=== PATIENT | female | born 1950 | race Hispanic/Latino ===

== ENCOUNTER 2016-07-27 10:51 | Emergency (ER) | payer SELFPAY ==
--- NOTE | 2016-07-27 11:57 | Emergency Department Report ---
Chief Complaint: Chest Pain Stated Complaint: ALLI/COUGH/SORE CHEST Time Seen by Provider: 07/27/16 11:53 - HPI History of Present Illness: 65 y/o female complain of cough x 1 week that has cause to have shortness of breath pt complain of nausea .pt state she took tylenol with cold and Pepto- Bismol.pt state that has some relief. - ROS Review of Systems: per HPI - Exam Vital Signs: Vital Signs 07/27/16 11:38 Temperature 98.7 F Pulse Rate 102 H Respiratory 32 H Rate Blood Pressure 145/75 O2 Sat by Pulse 98 Oximetry Physical Exam: GENERAL: The patient is well-developed and well-nourished. Patient is in NAD. HENT: Normocephalic. Atraumatic. Patient has moist mucous membranes. Throat: No erythema, swelling or exudates. EYES: Extraocular motions are intact, PERRL NECK: Supple. No meningitic signs are noted. There is no adenopathy noted. CHEST/LUNGS: Clear to auscultation bilaterally. No wheezing, rales or rhonchi noted. There is no respiratory distress noted. HEART/CARDIOVASCULAR: Regular rate and rhythm. Normal S1 S2. No murmurs, rubs , clicks, or gallops. ABDOMEN: Abdomen is soft, nontender.. Bowel sounds normoactive. There is no abdominal distention. Negative rebound tenderness. : Deferred. SKIN: There is no rash. There is no edema. There is no diaphoresis. NEURO: The patient is A&Ox3. The patient has no focal neurologic deficits. MUSCULOSKELETAL: There is no tenderness or deformity. There is no limitation range of motion. PSYCH: Pt has appropriate mood and affect. MSE screening note: Focused history and physical exam performed. Due to findings the following was ordered: ED Disposition for MSE Condition: Stable
[2016-07-27 12:57] LABS: Basophils % (Auto) 0.7 % (0.0-1.8); Eosinophils % (Auto) 1.7 % (0.0-4.3); Hematocrit 40.9 % (30.3-42.9); Hemoglobin 13.6 gm/dl (10.1-14.3); Mean Corpuscular HGB Conc 33 % (30-34); Mean Corpuscular Hemoglobin 30 pg (28-32); Mean Corpuscular Volume 89 fl (79-97); Platelet Count 236 K/mm3 (140-440); Red Blood Count 4.58 M/mm3 (3.65-5.03); Red Cell Distribution Width 14.3 % (13.2-15.2)
--- NOTE | 2016-07-27 13:06 | XRay Report ---
ROUTINE CHEST, TWO VIEWS: HISTORY: chest pain. The trachea, heart, mediastinal contour, lung hein and bony thorax are unremarkable. IMPRESSION: Unremarkable chest x-ray. No acute change since 10/22/15.
[2016-07-27 13:07] LABS: INR 1.08 (0.87-1.13)
[2016-07-27 13:08] LABS: Partial Thromboplastin Time 27.2 Sec. (24.2-36.6)
[2016-07-27 13:18] LABS: Creatine Kinase MB 1.5 ng/mL (0.0-4.0)
[2016-07-27 13:19] LABS: Anion Gap 19 mmol/L; Blood Urea Nitrogen 12 mg/dL (7-17); Calcium 8.3 mg/dL (8.4-10.2); Carbon Dioxide 20 mmol/L (22-30); Chloride 102.8 mmol/L (98-107); Creatine Kinase 71 units/L (30-135); Glucose 117 mg/dL (65-100); Potassium 3.7 mmol/L (3.6-5.0); Sodium 138 mmol/L (137-145)
[2016-07-27] MEDS ORDERED: TESSALON PERLES PO ONE (22:47)
[2016-07-27] MEDS ORDERED: MUCINEX ER PO ONE (22:47)
[2016-07-27] MEDS ORDERED: NORCO 7.5/325 PO ONE (22:47)
[2016-07-27] MEDS ORDERED: ZOFRAN ODT ONE (22:54)
[2016-07-27] MEDS ORDERED: ZOFRAN ODT PO ONE (23:00)
--- NOTE | 2016-07-28 00:11 | Emergency Department Report ---
HPI - General Chief Complaint: Chest Pain Time Seen by Provider: 07/27/16 22:46 - HPI HPI: The patient is a 65-year-old female who presents for evaluation of cough and chest pain. The patient reports an intermittently productive cough of clear sputum for the past 3 days, moderate in severity, associated with left-sided aching in quality chest pain, exacerbated with coughing, relieved at rest, moderate to severe. She has also experienced nasal and chest congestion and mild transient dyspnea with exertion. The patient denies fever, chills, night sweats, sore throat, hemoptysis, syncope, unilateral leg swelling, recent immobilization. ED Past Medical Hx - Past Medical History Previous Medical History?: Yes Hx Asthma: Yes ("ASTHMA BRONCHITIS") - Surgical History Past Surgical History?: No - Social History Smoking Status: Current Every Day Smoker - Medications Home Medications: Home Medications Medication Instructions Recorded Confirmed Last Taken Type ALBUTEROL Inhaler [ProAir HFA 2 puff IH QID PRN #1 inhalation 07/28/16 Unknown Rx Inhaler] Benzonatate [Tessalon Perles] 100 mg PO Q8HR #14 capsule 07/28/16 Unknown Rx Cyclobenzaprine HCl [Flexeril 5 MG 5 mg PO Q8HR PRN #10 tab 07/28/16 Unknown Rx TAB] guaiFENesin [Mucinex] 600 mg PO Q6HR PRN #20 07/28/16 Unknown Rx ED Review of Systems ROS: Stated complaint: ALLI/COUGH/SORE CHEST Other details as noted in HPI Constitutional: denies: fever ENT: denies: throat or neck pain Respiratory: reports cough, shortness of breath Cardiovascular: reports chest pain Endocrine: denies unexplained weight loss or gain Gastrointestinal: denies: abdominal pain, nausea Genitourinary: denies: dysuria Musculoskeletal: denies: leg swelling Skin: denies: rash Neurological: denies: headache Hematological/Lymphatic: denies: easy bleeding or easy bruising Psych: denies sadness or hopelessness Physical Exam - Physical Exam Vital Signs: Vital Signs 07/27/16 07/27/16 07/27/16 11:38 23:03 23:24 Temperature 98.7 F 99.3 F Pulse Rate 102 H 80 Respiratory 32 H 32 H 25 H Rate Blood Pressure 145/75 Blood Pressure 149/78 [Left] O2 Sat by Pulse 98 96 Oximetry Physical Exam: General: well-nourished, well-developed, no acute distress Head: Normocephalic, atraumatic Eyes: normal sclera ENT: Mucous membranes are pink and moist,, bilateral nasal congestion is present Neck: trachea midline, neck supple, No neck stiffness, no cervical adenopathy Respiratory: Breath sounds equal bilaterally, no wheezing, rales, or rhonchi Cardio: S1 and S2 present, no murmurs, rubs, gallops, capillary refill is brisk Abdomen: Normoactive bowel sounds, soft abdomen, no rigidity, no guarding or rebound tenderness Musc: No pitting edema Skin: No rash Neuro: no facial drooping, normal speech Psych: Normal affect ED Course Vital Signs 07/27/16 07/27/16 07/27/16 11:38 23:03 23:24 Temperature 98.7 F 99.3 F Pulse Rate 102 H 80 Respiratory 32 H 32 H 25 H Rate Blood Pressure 145/75 Blood Pressure 149/78 [Left] O2 Sat by Pulse 98 96 Oximetry ED Medical Decision Making - Lab Data Result diagrams: 07/27/16 12:44 07/27/16 12:44 - Medical Decision Making The patient was seen and examined by myself. The patient is placed on a cardiac cath lab radiology technologist and continuous pulse ox. On initial evaluation, the patient was found to be in no distress. Evaluation orders were placed. EKG was negative for findings suggestive of acute cardiac infarct. The patient is given a Gotham for her pain, Zofran for nausea, Tessalon Perles for their cough and Mucinex for nasal congestion. Lab results were not concerning. Chest x-ray is negative for pulmonary vessel congestion, pleural effusion, focal consolidation, or other acute cardio pulmonary disease process. The patient was reevaluated and reported that their symptoms were markedly improved. On reexamination the patient is found to have normal respiratory rate and O2 sat on pulse oximetry, with no costal retractions or diminishment of breath sounds on auscultation. The patient is stable for discharge with outpatient follow-up. The patient is given follow-up and return instructions. The patient expressed understanding and agreed with the plan. The patient is discharged in stable condition. Critical care attestation.: If time is entered above; I have spent that time in minutes in the direct care of this critically ill patient, excluding procedure time. ED Disposition Clinical Impression: Acute viral syndrome, URI, acute, Myalgia, Acute chest pain Disposition: DISCHARGED TO HOME OR SELFCARE Is pt being admited?: No Does the pt Need Aspirin: No Condition: Stable Instructions: Chest Pain (ED), Viral Syndrome (ED), Musculoskeletal Pain (ED), Costochondritis (ED) Referrals: PRIMARY CARE, [Primary Care Provider] - 3-5 Days Time of Disposition: 23:16
[2016-07-28 00:29] VITALS: BP 128/77
== END 2016-07-28 00:20 | disposition home or self-care (01) ==
LOC: ED 10:51
DX: B34.9 Viral infection, unspecified (principal); J06.9 Acute upper respiratory infection, unspecified; M79.1 Myalgia; R07.9 Chest pain, unspecified; J45.909 Unspecified asthma, uncomplicated; F17.200 Nicotine dependence, unspecified, uncomplicated
CPT/HCPCS: 36415; 71020; 80048; 82550; 82553; 84484; 85025; 85610; 85730; 93005; 93010; 99284; Q0162

== ENCOUNTER 2016-10-25 13:12 | Outpatient (CLI) | payer MEDICARE ==
--- NOTE | 2016-10-25 15:21 | Mammography Report ---
Screening mammogram: There are no available exams for comparison. Small circumscribed nodular densities are present illness of sub-axilla region as seen only in the MLO projection. Benign characteristics. Breast pattern otherwise is generally fatty replaced bilaterally and unremarkable. CAD used. Impression: Benign pattern. Recommendation: Annual mammogram followup. BI-RADS CATEGORY: 2 = Benign ACR BI-RADS MAMMOGRAPHIC CODES: 0 = Needs additional imaging evaluation; 1 = Negative; 2 = Benign; 3 = Probably benign; 4 = Suspicious; 5 = Malignant; 6 = Known biopsy-proven malignancy COMMENT: 1. Dense breast tissue, i.e., adenosis, fibrocystic changes, etc., may obscure an underlying neoplasm. 2. Approximately 10% of cancers are not detected with mammography. 3. A negative mammography report should not delay biopsy if a clinically suspicious mass is present.
== END 2016-10-25 13:13 | disposition home or self-care (01) ==
LOC: SPVWC 13:12
PROVIDERS: ATTEND General Practice
DX: Z12.31 Encounter for screening mammogram for malignant neoplasm of breast (principal)
CPT/HCPCS: 77067; G0202

== ENCOUNTER 2017-02-16 13:23 | Outpatient (CLI) | payer MEDICARE ==
--- NOTE | 2017-02-16 14:07 | Cat Scan Report ---
CT CHEST WITHOUT CONTRAST: HISTORY: Abnormal chest x-ray. TECHNIQUE: Helical CT with sagittal and coronal reformatted images. FINDINGS: Compared to the chest films dated 07/27/16. Heart size is normal. There is no evidence of adenopathy within the mediastinum. Pulmonary mateus are free of any mass and the lungs are clear of infiltrates. The pleura is unremarkable. No masses involve the chest wall. No abnormalities are noted within the upper abdomen. The adrenal glands are normal. IMPRESSION: Unremarkable noncontrast CT chest.
== END 2017-02-16 13:24 | disposition home or self-care (01) ==
LOC: CT 13:23
PROVIDERS: ATTEND Specialist
DX: R93.8 Abnormal findings on diagnostic imaging of other specified body structures (principal); J45.909 Unspecified asthma, uncomplicated; F17.200 Nicotine dependence, unspecified, uncomplicated
CPT/HCPCS: 71250

== ENCOUNTER 2017-10-26 09:51 | Emergency (ER) | payer MEDICARE ==
[2017-10-26 10:39] LABS: Basophils # (Auto) 0.1 K/mm3 (0.0-0.1); Basophils % (Auto) 0.6 % (0.0-1.8); Eosinophils # (Auto) 0.5 K/mm3 (0.0-0.4); Eosinophils % (Auto) 4.8 % (0.0-4.3); Hematocrit 41.4 % (30.3-42.9); Lymphocytes # (Auto) 2.1 K/mm3 (1.2-5.4); Lymphocytes % (Auto) 20.2 % (13.4-35.0); Mean Corpuscular HGB Conc 34 % (30-34); Mean Corpuscular Hemoglobin 31 pg (28-32); Mean Corpuscular Volume 91 fl (79-97); Monocytes # (Auto) 0.8 K/mm3 (0.0-0.8); Monocytes % (Auto) 7.9 % (0.0-7.3); Platelet Count 308 K/mm3 (140-440); Red Blood Count 4.55 M/mm3 (3.65-5.03); Red Cell Distribution Width 13.2 % (13.2-15.2)
[2017-10-26 11:08] LABS: Alanine Aminotransferase 17 units/L (7-56); Albumin 3.7 g/dL (3.9-5); BUN/Creatinine Ratio 36; Blood Urea Nitrogen 18 mg/dL (7-17); Calcium 8.8 mg/dL (8.4-10.2); Hemolysis Index 6; Lipase 9 units/L (13-60)
[2017-10-26 11:27] LABS: Bilirubin,Urine NEG (Negative); Blood,Urine NEG (Negative); Color,Urine Yellow (Yellow); Protein,Urine <15 mg/dL mg/dL (Negative); Urobilinogen,Urine < 2.0 mg/dL (<2.0)
--- NOTE | 2017-10-26 12:47 | Emergency Department Report ---
Blank Doc - Documentation Documentation: Patient is a 66-year-old female who is presenting with constipation for last 4 days. Patient feels that she needs to go to bathroom but is unable to. Patient taken stool softeners and Dulcolax with no relief. Patient began vomiting this morning. Patient denies any fevers chills or significant abdominal pain at this time. Laboratory studies within normal limits there were do via nursing protocol. Patient will undergo x-ray to rule out an obstructive pattern. Patient will be reassessed [facility]
--- NOTE | 2017-10-26 14:30 | XRay Report ---
ABDOMINAL SERIES: History: Nausea and vomiting, constipation, obstruction. Erect chest film shows no acute or significant changes involving the heart or lung hein. There is no evidence of free air beneath the diaphragms. The gas pattern within the abdomen is unremarkable. There is no evidence of bowel dilatation, significant air-fluid levels, or masses. Organ shadows are unremarkable. A curvilinear density is noted in the midline pelvis of uncertain etiology. This is in the expected location of the uterus or rectum. Please correlate with the patient's history. IMPRESSION: No acute abdominal process identified. No evidence of fecal retention.
--- NOTE | 2017-10-26 14:36 | Emergency Department Report ---
ED Abdominal Pain HPI - General Chief Complaint: Abdominal Pain Stated Complaint: SEVERE STOMACH CRAMPS, CONSTIPATION Time Seen by Provider: 10/26/17 12:07 Source: patient Mode of arrival: Ambulatory Limitations: No Limitations - History of Present Illness Initial Comments: 66-year-old female past medical history arthritis, asthma, COPD presents with complaint of 4 days of constipation. Patient states she is still able to pass gas but has passed little to no stool in the last 4 days. Patient states she had slightly crampy pain this morning. Denies dysuria or hematuria difficulty urinating. Denies fever or chills. Denies any abdominal trauma. States she took a stool softener home with minimal relief of her constipation. Patient was seen by Dr. Conway for medical screening MD Complaint: abdominal pain, other (constipation) Onset/Timin -: days(s) Location: suprapubic Radiation: suprapubic - Related Data Previous Rx's Medication Instructions Recorded Last Taken Type ALBUTEROL Inhaler [ProAir HFA 2 puff IH QID PRN #1 inhalation 07/28/16 Unknown Rx Inhaler] Benzonatate [Tessalon Perles] 100 mg PO Q8HR #14 capsule 07/28/16 Unknown Rx Cyclobenzaprine HCl [Flexeril 5 MG 5 mg PO Q8HR PRN #10 tab 07/28/16 Unknown Rx TAB] guaiFENesin [Mucinex] 600 mg PO Q6HR PRN #20 07/28/16 Unknown Rx Fluticasone/Salmeterol [Advair 1 each INHALATION BID 30 Days 03/16/17 Unknown Rx 250-50 Diskus] blst.w.dev Levofloxacin [Levaquin TAB] 500 mg PO QDAY #5 tablet 03/16/17 Unknown Rx metroNIDAZOLE [Flagyl TAB] 500 mg PO Q8HR #14 tablet 03/16/17 Unknown Rx predniSONE [Deltasone] 50 mg PO QDAY #5 tab 03/16/17 Unknown Rx Magnesium Citrate [Citroma] 296 ml PO ONCE PRN #1 solution 10/26/17 Unknown Rx Polyethylene Glycol 3350 [Miralax 17 gm PO QDAY PRN #1 packet 10/26/17 Unknown Rx 3350] Sennosides [Senna] 8.6 mg PO QHS PRN #14 tablet 10/26/17 Unknown Rx Allergies Allergy/AdvReac Type Severity Reaction Status Date / Time erythromycin base Allergy Rash Verified 10/22/15 12:28 [Erythromycin Base] Penicillins Allergy Shortness Verified 10/22/15 12:28 of Breath ED Review of Systems ROS: Stated complaint: SEVERE STOMACH CRAMPS, CONSTIPATION Other details as noted in HPI Constitutional: denies: chills, fever Eyes: denies: eye pain, eye discharge, vision change ENT: denies: ear pain, throat pain Respiratory: denies: cough, shortness of breath, wheezing Cardiovascular: denies: chest pain, palpitations Endocrine: no symptoms reported Gastrointestinal: nausea, constipation. denies: abdominal pain, diarrhea Genitourinary: denies: urgency, dysuria, discharge Musculoskeletal: denies: back pain, joint swelling, arthralgia Skin: denies: rash, lesions Neurological: denies: headache, weakness, paresthesias Psychiatric: denies: anxiety, depression Hematological/Lymphatic: denies: easy bleeding, easy bruising ED Past Medical Hx - Past Medical History Previous Medical History?: Yes Hx Hypertension: No Hx Heart Attack/AMI: No Hx Congestive Heart Failure: No Hx Deep Vein Thrombosis: No Hx Pulmonary Embolism: No Hx Arthritis: Yes Hx Asthma: Yes Hx COPD: Yes Hx Tuberculosis: No - Surgical History Past Surgical History?: Yes Hx Coronary Stent: No Hx Pacemaker: No Hx Internal Defibrillator: No Additional Surgical History: [place] cataract surgery - Social History Smoking Status: Former Smoker Substance Use Type: Alcohol, Prescribed - Medications Home Medications: Home Medications Medication Instructions Recorded Confirmed Last Taken Type ALBUTEROL Inhaler [ProAir HFA 2 puff IH QID PRN #1 inhalation 07/28/16 Unknown Rx Inhaler] Benzonatate [Tessalon Perles] 100 mg PO Q8HR #14 capsule 07/28/16 Unknown Rx Cyclobenzaprine HCl [Flexeril 5 MG 5 mg PO Q8HR PRN #10 tab 07/28/16 Unknown Rx TAB] guaiFENesin [Mucinex] 600 mg PO Q6HR PRN #20 07/28/16 Unknown Rx Fluticasone/Salmeterol [Advair 1 each INHALATION BID 30 Days 03/16/17 Unknown Rx 250-50 Diskus] blst.w.dev Levofloxacin [Levaquin TAB] 500 mg PO QDAY #5 tablet 03/16/17 Unknown Rx metroNIDAZOLE [Flagyl TAB] 500 mg PO Q8HR #14 tablet 03/16/17 Unknown Rx predniSONE [Deltasone] 50 mg PO QDAY #5 tab 03/16/17 Unknown Rx Magnesium Citrate [Citroma] 296 ml PO ONCE PRN #1 solution 10/26/17 Unknown Rx Polyethylene Glycol 3350 [Miralax 17 gm PO QDAY PRN #1 packet 10/26/17 Unknown Rx 3350] Sennosides [Senna] 8.6 mg PO QHS PRN #14 tablet 10/26/17 Unknown Rx ED Physical Exam - General Limitations: No Limitations General appearance: alert, in no apparent distress - Head Head exam: Present: atraumatic, normocephalic - Eye Eye exam: Present: normal appearance, PERRL, EOMI - ENT ENT exam: Present: mucous membranes moist - Neck Neck exam: Present: normal inspection - Respiratory Respiratory exam: Present: normal lung sounds bilaterally. Absent: respiratory distress - Cardiovascular Cardiovascular Exam: Present: regular rate, normal rhythm. Absent: systolic murmur, diastolic murmur, rubs, gallop - GI/Abdominal GI/Abdominal exam: Present: soft (patient has minimal to no tenderness on palpation, some discomfort suprapubic region), normal bowel sounds - Extremities Exam Extremities exam: Present: normal inspection - Back Exam Back exam: Present: normal inspection - Neurological Exam Neurological exam: Present: alert, oriented X3 - Psychiatric Psychiatric exam: Present: normal affect, normal mood - Skin Skin exam: Present: warm, dry, intact, normal color. Absent: rash ED Course Vital Signs 10/26/17 10/26/17 10:10 14:53 Temperature 97.6 F Pulse Rate 59 L 60 Respiratory 18 18 Rate Blood Pressure 162/68 Blood Pressure 152/78 [Left] O2 Sat by Pulse 98 98 Oximetry ED Medical Decision Making - Lab Data Result diagrams: 10/26/17 10:28 10/26/17 10:28 - Medical Decision Making A/P: Constipation 1-senna, MiraLAX, magnesium citrate. I advised patient to stay well-hydrated while taking laxatives. 2-I advised patient to consume a high-fiber diet. I advised patient to return to the ED for any worsening pain fever chills bloody stools nausea and vomiting or inability to pass any stools or gas. Patient stated she understood my instructions. Patient is currently still able to pass gas 3-x-ray shows no obstructive bowel gas pattern. I reviewed x-ray results with Dr. Conway before discharge. Vital signs stable for discharge. Patient is able to tolerate by mouth fluid and food before discharge. 4-follow up with primary care and GI Critical care attestation.: If time is entered above; I have spent that time in minutes in the direct care of this critically ill patient, excluding procedure time. ED Disposition Clinical Impression: Constipation Qualifiers: Constipation type: unspecified constipation type Qualified Code(s): K59.00 - Constipation, unspecified Disposition: TO HOME OR SELFCARE Is pt being admited?: No Does the pt Need Aspirin: No Condition: Stable Instructions: Constipation (ED), High Fiber Diet (ED), Obstipation (ED) Prescriptions: Sennosides [Senna] 8.6 mg PO QHS PRN #14 tablet PRN Reason: Constipation Magnesium Citrate [Citroma] 296 ml PO ONCE PRN #1 solution PRN Reason: Constipation Polyethylene Glycol 3350 [Miralax 3350] 17 gm PO QDAY PRN #1 packet PRN Reason: Constipation Referrals: [facility] [Provider Group] - 3-5 Days [facility] [Provider Group] - 3-5 Days Forms: Accompanied Note, Work/School Release Form(ED) Time of Disposition: 14:47
[2017-10-26 14:54] VITALS: BP 152/78
== END 2017-10-26 14:54 | disposition home or self-care (01) ==
LOC: ED 09:51
DX: K59.00 Constipation, unspecified (principal); J44.9 Chronic obstructive pulmonary disease, unspecified
CPT/HCPCS: 36415; 74022; 80053; 81001; 83690; 85025

== ENCOUNTER 2017-11-28 19:55 | Emergency (ER) | payer MEDICARE ==
[2017-11-28 21:44] VITALS: BP 173/70
--- NOTE | 2017-11-28 22:19 | Emergency Department Report ---
ED ENT HPI - General Chief complaint: Earache Stated complaint: EAR PAIN Time Seen by Provider: 11/28/17 21:53 Source: patient Mode of arrival: Ambulatory Limitations: No Limitations - History of Present Illness Initial comments: This is a 67-year-old female nontoxic, well nourished in appearance, no acute signs of distress presents to the ED with c/o of right earache x1 week. Patient describes pain as aching. Patient denies any decreased hearing or ear canal discharge. Patient denies any mastoid or tragus tenderness. Patient denies any fever, chills, nausea, vomiting, chest pain, shortness of breath, headache or stiff neck. Patient stated allergies to PCN and erythromycin. MD complaint: ear pain -: week(s) (1) Location: R ear Severity: mild Severity scale (0 -10): 8 Quality: aching Consistency: constant Improves with: none Worsens with: none Associated Symptoms: denies: fever, cough, gum swelling, toothache, pain with swallowing, sore throat, tinnitus, hearing loss, discharge from ear, rhinorrhea - Related Data Previous Rx's Medication Instructions Recorded Last Taken Type ALBUTEROL Inhaler [ProAir HFA 2 puff IH QID PRN #1 inhalation 07/28/16 Unknown Rx Inhaler] Benzonatate [Tessalon Perles] 100 mg PO Q8HR #14 capsule 07/28/16 Unknown Rx Cyclobenzaprine HCl [Flexeril 5 MG 5 mg PO Q8HR PRN #10 tab 07/28/16 Unknown Rx TAB] guaiFENesin [Mucinex] 600 mg PO Q6HR PRN #20 07/28/16 Unknown Rx Fluticasone/Salmeterol [Advair 1 each INHALATION BID 30 Days 03/16/17 Unknown Rx 250-50 Diskus] blst.w.dev Levofloxacin [Levaquin TAB] 500 mg PO QDAY #5 tablet 03/16/17 Unknown Rx metroNIDAZOLE [Flagyl TAB] 500 mg PO Q8HR #14 tablet 03/16/17 Unknown Rx predniSONE [Deltasone] 50 mg PO QDAY #5 tab 03/16/17 Unknown Rx Magnesium Citrate [Citroma] 296 ml PO ONCE PRN #1 solution 10/26/17 Unknown Rx Polyethylene Glycol 3350 [Miralax 17 gm PO QDAY PRN #1 packet 10/26/17 Unknown Rx 3350] Sennosides [Senna] 8.6 mg PO QHS PRN #14 tablet 10/26/17 Unknown Rx Clindamycin [Clindamycin CAP] 300 mg PO Q8H 7 Days cap 11/28/17 Unknown Rx Ibuprofen [Motrin] 600 mg PO Q8H PRN #30 tablet 11/28/17 Unknown Rx Allergies Allergy/AdvReac Type Severity Reaction Status Date / Time erythromycin base Allergy Rash Verified 10/22/15 12:28 [Erythromycin Base] Penicillins Allergy Shortness Verified 10/22/15 12:28 of Breath ED Dental HPI - General Chief complaint: Earache Stated complaint: EAR PAIN Time Seen by Provider: 11/28/17 21:53 Source: patient Mode of arrival: Ambulatory Limitations: No Limitations - Related Data Previous Rx's Medication Instructions Recorded Last Taken Type ALBUTEROL Inhaler [ProAir HFA 2 puff IH QID PRN #1 inhalation 07/28/16 Unknown Rx Inhaler] Benzonatate [Tessalon Perles] 100 mg PO Q8HR #14 capsule 07/28/16 Unknown Rx Cyclobenzaprine HCl [Flexeril 5 MG 5 mg PO Q8HR PRN #10 tab 07/28/16 Unknown Rx TAB] guaiFENesin [Mucinex] 600 mg PO Q6HR PRN #20 07/28/16 Unknown Rx Fluticasone/Salmeterol [Advair 1 each INHALATION BID 30 Days 03/16/17 Unknown Rx 250-50 Diskus] blst.w.dev Levofloxacin [Levaquin TAB] 500 mg PO QDAY #5 tablet 03/16/17 Unknown Rx metroNIDAZOLE [Flagyl TAB] 500 mg PO Q8HR #14 tablet 03/16/17 Unknown Rx predniSONE [Deltasone] 50 mg PO QDAY #5 tab 03/16/17 Unknown Rx Magnesium Citrate [Citroma] 296 ml PO ONCE PRN #1 solution 10/26/17 Unknown Rx Polyethylene Glycol 3350 [Miralax 17 gm PO QDAY PRN #1 packet 10/26/17 Unknown Rx 3350] Sennosides [Senna] 8.6 mg PO QHS PRN #14 tablet 10/26/17 Unknown Rx Clindamycin [Clindamycin CAP] 300 mg PO Q8H 7 Days cap 11/28/17 Unknown Rx Ibuprofen [Motrin] 600 mg PO Q8H PRN #30 tablet 11/28/17 Unknown Rx Allergies Allergy/AdvReac Type Severity Reaction Status Date / Time erythromycin base Allergy Rash Verified 10/22/15 12:28 [Erythromycin Base] Penicillins Allergy Shortness Verified 10/22/15 12:28 of Breath ED Review of Systems ROS: Stated complaint: EAR PAIN Other details as noted in HPI Constitutional: denies: chills, fever Eyes: denies: eye pain, eye discharge, vision change ENT: ear pain. denies: throat pain Respiratory: denies: cough, shortness of breath, wheezing Cardiovascular: denies: chest pain, palpitations Endocrine: no symptoms reported Gastrointestinal: denies: abdominal pain, nausea, diarrhea Genitourinary: denies: urgency, dysuria, discharge Musculoskeletal: denies: back pain, joint swelling, arthralgia Skin: denies: rash, lesions Neurological: denies: headache, weakness, paresthesias Psychiatric: denies: anxiety, depression Hematological/Lymphatic: denies: easy bleeding, easy bruising ED Past Medical Hx - Past Medical History Previous Medical History?: Yes Hx Hypertension: No Hx Heart Attack/AMI: No Hx Congestive Heart Failure: No Hx Deep Vein Thrombosis: No Hx Pulmonary Embolism: No Hx Arthritis: Yes Hx Asthma: Yes Hx COPD: Yes Hx Tuberculosis: No - Surgical History Past Surgical History?: Yes Hx Coronary Stent: No Hx Pacemaker: No Hx Internal Defibrillator: No Additional Surgical History: [place] cataract surgery - Social History Smoking Status: Former Smoker Substance Use Type: None - Medications Home Medications: Home Medications Medication Instructions Recorded Confirmed Last Taken Type ALBUTEROL Inhaler [ProAir HFA 2 puff IH QID PRN #1 inhalation 07/28/16 Unknown Rx Inhaler] Benzonatate [Tessalon Perles] 100 mg PO Q8HR #14 capsule 07/28/16 Unknown Rx Cyclobenzaprine HCl [Flexeril 5 MG 5 mg PO Q8HR PRN #10 tab 07/28/16 Unknown Rx TAB] guaiFENesin [Mucinex] 600 mg PO Q6HR PRN #20 07/28/16 Unknown Rx Fluticasone/Salmeterol [Advair 1 each INHALATION BID 30 Days 03/16/17 Unknown Rx 250-50 Diskus] blst.w.dev Levofloxacin [Levaquin TAB] 500 mg PO QDAY #5 tablet 03/16/17 Unknown Rx metroNIDAZOLE [Flagyl TAB] 500 mg PO Q8HR #14 tablet 03/16/17 Unknown Rx predniSONE [Deltasone] 50 mg PO QDAY #5 tab 03/16/17 Unknown Rx Magnesium Citrate [Citroma] 296 ml PO ONCE PRN #1 solution 10/26/17 Unknown Rx Polyethylene Glycol 3350 [Miralax 17 gm PO QDAY PRN #1 packet 10/26/17 Unknown Rx 3350] Sennosides [Senna] 8.6 mg PO QHS PRN #14 tablet 10/26/17 Unknown Rx Clindamycin [Clindamycin CAP] 300 mg PO Q8H 7 Days cap 11/28/17 Unknown Rx Ibuprofen [Motrin] 600 mg PO Q8H PRN #30 tablet 11/28/17 Unknown Rx ED Physical Exam - General Limitations: No Limitations General appearance: alert, in no apparent distress - Head Head exam: Present: atraumatic, normocephalic - Eye Eye exam: Present: normal appearance Pupils: Present: normal accommodation - ENT ENT exam: Present: normal orophraynx, mucous membranes moist, normal external ear exam - Expanded ENT Exam Expanded Ear exam: Present: normal external inspection TM/Canal exam: Erythema: Left TM, Bulging: Left TM Mouth exam: Present: normal external inspection, tongue normal. Absent: drooling, trismus, muffled voice, tongue elevation, laceration Teeth exam: Present: normal inspection Throat exam: Positive: normal inspection. Negative: tonsillar erythema, tonsillomegaly, tonsillar exudate, R peritonsillar mass, L peritonsillar mass - Neck Neck exam: Present: normal inspection, full ROM. Absent: lymphadenopathy - Respiratory Respiratory exam: Present: normal lung sounds bilaterally. Absent: respiratory distress - Cardiovascular Cardiovascular Exam: Present: regular rate, normal rhythm. Absent: systolic murmur, diastolic murmur, rubs, gallop - GI/Abdominal GI/Abdominal exam: Present: soft, normal bowel sounds - Extremities Exam Extremities exam: Present: normal inspection - Back Exam Back exam: Present: normal inspection - Neurological Exam Neurological exam: Present: alert, oriented X3 - Psychiatric Psychiatric exam: Present: normal affect, normal mood - Skin Skin exam: Present: warm, dry, intact, normal color. Absent: rash ED Course Vital Signs 11/28/17 21:40 Temperature 98.1 F Pulse Rate 75 Respiratory 18 Rate Blood Pressure 173/70 O2 Sat by Pulse 98 Oximetry - Reevaluation(s) Reevaluation #1: 11/28/17 22:15 Patient is speaking in full sentences with no signs of distress noted. Critical care attestation.: If time is entered above; I have spent that time in minutes in the direct care of this critically ill patient, excluding procedure time. ED Disposition Clinical Impression: Otitis media Qualifiers: Otitis media type: unspecified Laterality: right Qualified Code(s): H66.91 - Otitis media, unspecified, right ear Disposition: - TO HOME OR SELFCARE Is pt being admited?: No Does the pt Need Aspirin: No Condition: Stable Instructions: Otitis Media (ED), Azithromycin (By mouth) Additional Instructions: Follow-up with a primary care doctor in 3-5 days or if symptoms worsen and continue return to emergency room as soon as possible. Prescriptions: Clindamycin [Clindamycin CAP] 300 mg PO Q8H 7 Days cap Ibuprofen [Motrin] 600 mg PO Q8H PRN #30 tablet PRN Reason: Pain Referrals: PRIMARY CARE, [Referring] - 3-5 Days JOSH PUGH MD [Staff Physician] - 3-5 Days [facility] [Outside] - 3-5 Days [facility] [Outside] - 3-5 Days Forms: Work/School Release Form(ED)
== END 2017-11-28 22:45 | disposition home or self-care (01) ==
LOC: ED 19:55
DX: H66.91 Otitis media, unspecified, right ear (principal); J44.9 Chronic obstructive pulmonary disease, unspecified
CPT/HCPCS: 99282

== ENCOUNTER 2017-12-01 15:55 | Emergency (ER) | payer MEDICARE ==
[2017-12-01 16:03] VITALS: BP 129/71
[2017-12-01] MEDS ORDERED: NORCO 5/325 PO ONE (18:32)
--- NOTE | 2017-12-01 18:36 | Emergency Department Report ---
Minor Respiratory - HPI Chief Complaint: Earache Stated Complaint: EAR PAIN Time Seen by Provider: 12/01/17 18:31 Duration: greater than 5 days Pain Location: Ear (right ear) Severity: severe (10/10 achy in. Worse with eating and talking.) Minor Respiratory: Yes Able to Tolerate Fluids, Yes Ear Pain (right ear pain), No Rhinorrhea, No Sore Throat, No Cough, No Sick Contacts, No Hemoptysis, No Chest Pain, No Shortness of Breath, No Fever Other History: This is a 67-year-old female reports that she was here 4 days ago and was treated with clindamycin for ear infection. She said she is still having ear pain and she is taking ibuprofen which she was prescribed is not helping. Pain is achy 10 out of 10 and denies any drainage. Denies any fever or chills. Denies any injury to her right ear. She reports some clogged ear sensation but denies any drainage or congestion. Denies any coughing, shortness of breath, sore throat or chest pain. Denied any bony tenderness behind ear. Denies any hearing loss. Pain is worse with talking and she when. No alleviating factor. She is taking clindamycin and Motrin that was prescribed for her without any relief. ED Review of Systems ROS: Stated complaint: EAR PAIN Other details as noted in HPI Constitutional: denies: chills, fever Eyes: denies: eye pain, eye discharge ENT: ear pain. denies: throat pain, dental pain, hearing loss, congestion Respiratory: denies: cough, shortness of breath, SOB with exertion, SOB at rest , wheezing Cardiovascular: denies: chest pain, palpitations, edema, syncope Gastrointestinal: denies: abdominal pain, nausea, vomiting Musculoskeletal: denies: back pain, joint swelling, arthralgia Skin: denies: rash, lesions Neurological: denies: headache, abnormal gait, vertigo ED Past Medical Hx - Past Medical History Previous Medical History?: Yes Hx Hypertension: No Hx Heart Attack/AMI: No Hx Congestive Heart Failure: No Hx Deep Vein Thrombosis: No Hx Pulmonary Embolism: No Hx Arthritis: Yes Hx Asthma: Yes Hx COPD: Yes Hx Tuberculosis: No - Surgical History Past Surgical History?: Yes Hx Coronary Stent: No Hx Pacemaker: No Hx Internal Defibrillator: No Additional Surgical History: [place] cataract surgery - Family History Family history: hypertension - Social History Smoking Status: Former Smoker Substance Use Type: None Other Social History: retired - Medications Home Medications: Home Medications Medication Instructions Recorded Confirmed Last Taken Type ALBUTEROL Inhaler [ProAir HFA 2 puff IH QID PRN #1 inhalation 07/28/16 Unknown Rx Inhaler] Benzonatate [Tessalon Perles] 100 mg PO Q8HR #14 capsule 07/28/16 Unknown Rx Cyclobenzaprine HCl [Flexeril 5 MG 5 mg PO Q8HR PRN #10 tab 07/28/16 Unknown Rx TAB] guaiFENesin [Mucinex] 600 mg PO Q6HR PRN #20 07/28/16 Unknown Rx Fluticasone/Salmeterol [Advair 1 each INHALATION BID 30 Days 03/16/17 Unknown Rx 250-50 Diskus] blst.w.dev Levofloxacin [Levaquin TAB] 500 mg PO QDAY #5 tablet 03/16/17 Unknown Rx metroNIDAZOLE [Flagyl TAB] 500 mg PO Q8HR #14 tablet 03/16/17 Unknown Rx predniSONE [Deltasone] 50 mg PO QDAY #5 tab 03/16/17 Unknown Rx Magnesium Citrate [Citroma] 296 ml PO ONCE PRN #1 solution 10/26/17 Unknown Rx Polyethylene Glycol 3350 [Miralax 17 gm PO QDAY PRN #1 packet 10/26/17 Unknown Rx 3350] Sennosides [Senna] 8.6 mg PO QHS PRN #14 tablet 10/26/17 Unknown Rx Ibuprofen [Motrin] 600 mg PO Q8H PRN #30 tablet 11/28/17 Unknown Rx Cetirizine HCl [ZyrTEC] 10 mg PO QAM 14 Days #14 capsule 12/01/17 Unknown Rx Neomycin/Polymyxin B/Hydrocort 4 drop OTIC Q6H 10 Days #1 solution 12/01/17 Unknown Rx [Ziickjng-Rgtebkbxx-Jb Ear Soln] Minor Respiratory Exam - Exam General: Vital signs noted. No distress. Alert and acting appropriately. This is a 67-year-old female well-nourished well-developed and nontoxic in appearance. HEENT: No Pharyngeal Erythema, No Pharyngeal Exudates, No Moist Mucous Membranes , No Rhinorrhea, No Conjuctival Injection, No Frontal Tenderness, No Maxillary Tenderness Ear: Right EAC Pain (right EAC with erythema, pain with examination with our scope. Swollen), Neither TM Bulge (bilateral TM congested without erythema), Neither TM Erythema (no mastoid bone tenderness bilaterally), Neither EAC Discharge Neck: Yes Adenopathy (RIGHT posterior auricular), Yes Supple (full range of motion, no C-spine tenderness.) Lungs: Yes Good Air Exchange (CTAB), No Wheezes, No Ronchi, No Stridor, No Cough , No Labored Respirations, No Retractions, No Use of Accessory Muscles, No Other Abnormal Lung Sounds Heart: Yes Regular (S1S2), No Murmur Abdomen: Yes Normal Bowel Sounds (un all quadrants), No Tenderness (NTTP in all quadrants), No Peritoneal Signs Skin: No Rash, No Edema Neurologic: Alert and oriented, no deficits. Alert and oriented 3, normal hearing and normal speech. Normal gait Musculoskeletal: Unremarkable. No clubbing, cyanosis or edema. +2 pulses all extremities. ED Course Vital Signs 12/01/17 15:59 Temperature 97.6 F Pulse Rate 90 Respiratory 18 Rate Blood Pressure 129/71 O2 Sat by Pulse 98 Oximetry - Reevaluation(s) Reevaluation #1: 12/01/17 18:41 Patient given [place] 5/325 one tablet by mouth emergency room for right ear pain. ED Medical Decision Making - Medical Decision Making ED course Diagnosis: 1: Otitis externa right ear-patient will be started on antibiotic eardrops for 10 days. Stop clindamycin by mouth 2: Otalgia right ear-[place] 5/325 one tablet by mouth given in emergency room and patient to continue with Motrin as ordered previously. 3: Bilateral ear congestion: Patient start Zyrtec by mouth Referral to primary care and ear nose and throat doctor. Patient was on this on the discharge instruction and treatment plan and discharged from emergency room with her family in stable condition with prescription for Corticosporin otic and Zyrtec. Critical care attestation.: If time is entered above; I have spent that time in minutes in the direct care of this critically ill patient, excluding procedure time. ED Disposition Clinical Impression: Otalgia, right ear, Congestion of both ears Otitis externa Qualifiers: Otitis externa type: unspecified type Chronicity: acute Laterality: right Qualified Code(s): H60.501 - Unspecified acute noninfective otitis externa, right ear Disposition: DC-01 TO HOME OR SELFCARE Is pt being admited?: No Does the pt Need Aspirin: No Condition: Stable Instructions: Neomycin/Polymyxin B/Hydrocortisone (Into the ear), Otitis Externa (ED), Earache (ED) Additional Instructions: Please use eardrops for infection in the ear canal. Stop taking clindamycin Follow-up with your primary care physician as instructed Take Motrin as needed for pain Zyrtec for congestion behind her eardrum If you pain does not get better, please follow up with ear nose and throat Prescriptions: Cetirizine HCl [ZyrTEC] 10 mg PO QAM 14 Days #14 capsule Neomycin/Polymyxin B/Hydrocort [Detikbmb-Jrffgsdxr-Ir Ear Soln] 4 drop OTIC Q6H 10 Days #1 solution Referrals: PRIMARY CARE, [Primary Care Provider] - 12/06/17 NITA MOYA MD [Staff Physician] - 3-5 Days
== END 2017-12-01 19:31 | disposition home or self-care (01) ==
LOC: ED 15:55
DX: H60.501 Unspecified acute noninfective otitis externa, right ear (principal); H83.8X3 Other specified diseases of inner ear, bilateral; J44.9 Chronic obstructive pulmonary disease, unspecified
CPT/HCPCS: 99282

== ENCOUNTER 2018-04-01 20:15 | Emergency (ER) | payer MEDICARE ==
[2018-04-01 21:25] LABS: Basophils # (Auto) 0.1 K/mm3 (0.0-0.1); Basophils % (Auto) 1.1 % (0.0-1.8); Eosinophils # (Auto) 1.1 K/mm3 (0.0-0.4); Eosinophils % (Auto) 10.9 % (0.0-4.3); Hematocrit 36.6 % (30.3-42.9); Hemoglobin 12.5 gm/dl (10.1-14.3); Lymphocytes # (Auto) 2.4 K/mm3 (1.2-5.4); Lymphocytes % (Auto) 23.2 % (13.4-35.0); Mean Corpuscular HGB Conc 34 % (30-34); Mean Corpuscular Hemoglobin 31 pg (28-32); Mean Corpuscular Volume 90 fl (79-97); Monocytes # (Auto) 0.9 K/mm3 (0.0-0.8); Platelet Count 350 K/mm3 (140-440); Red Blood Count 4.08 M/mm3 (3.65-5.03); Red Cell Distribution Width 13.5 % (13.2-15.2)
[2018-04-01 21:41] LABS: Alanine Aminotransferase 8 units/L (7-56); Albumin 3.5 g/dL (3.9-5); BUN/Creatinine Ratio 26; Blood Urea Nitrogen 18 mg/dL (7-17); Hemolysis Index 2
[2018-04-02] MEDS ORDERED: ZOFRAN IM ONE (08:20)
[2018-04-02] MEDS ORDERED: MORPHINE IM ONE (08:20)
--- NOTE | 2018-04-02 08:23 | Emergency Department Report ---
ED General Adult HPI - General Chief complaint: Extremity Problem,Nontraumatic Stated complaint: RT LEG PAIN Time Seen by Provider: 04/02/18 08:15 Source: patient Mode of arrival: Ambulatory Limitations: No Limitations - History of Present Illness Initial comments: Patient is 67-year-old female with history of COPD and arthritis. Patient presented to the ER complaining of right upper thigh and hip pain for the last 3 days. Patient denied any recent trauma or injury. She also denied any recent travel. She denied any swelling or fever. Patient also denied any chest pain, shortness of breath, abdominal pain, nausea or vomiting. Severity scale (0 -10): 10 - Related Data Home Medications Medication Instructions Recorded Confirmed Last Taken Albuterol Sulfate [Ventolin HFA] 1 puff IH Q4H PRN 03/17/18 03/17/[address] [Ginger Reina] 75 mg PO BID 03/17/18 03/17/18 2 Days Ago ~03/15/18 Fluticasone/Salmeterol [Advair 1 puff IH Q12H 03/17/18 03/17/18 2 Days Ago 250-50 Diskus] ~03/15/18 Gabapentin [Neurontin] 300 mg PO BID 03/17/18 03/17/18 2 Days Ago ~03/15/18 Ipratropium/Albuterol Sulfate 0.5 mg IH Q6H 03/17/18 03/17/18 2 Days Ago [DUONEB *Not for PRN Use*] ~03/15/18 Ondansetron [Zofran ODT TAB] 8 mg PO Q8HR 03/17/18 03/17/18 2 Days Ago ~03/15/18 Oxybutynin [Ditropan] 5 mg PO BID 03/17/18 03/17/18 2 Days Ago ~03/15/18 Ranitidine HCl [Zantac] 300 mg PO DAILY 03/17/18 03/17/18 2 Days Ago ~03/15/18 predniSONE [Deltasone] 20 mg PO QDAY 03/17/18 03/17/18 2 Days Ago ~03/15/18 tiZANidine [Zanaflex] 4 mg PO DAILY 03/17/18 03/17/18 2 Days Ago ~03/15/18 traMADol [Ultram 50 MG tab] 50 mg PO BID 03/17/18 03/17/18 2 Days Ago ~03/15/18 Allergies Allergy/AdvReac Type Severity Reaction Status Date / Time erythromycin base Allergy Rash Verified 12/01/17 15:59 [Erythromycin Base] Penicillins Allergy Shortness Verified 12/01/17 15:59 of Breath ED Review of Systems ROS: Stated complaint: RT LEG PAIN Other details as noted in HPI Comment: All other systems reviewed and negative Constitutional: denies: chills, fever Respiratory: denies: cough, orthopnea, shortness of breath, SOB with exertion, wheezing Cardiovascular: denies: chest pain, palpitations Gastrointestinal: denies: abdominal pain, nausea, vomiting, diarrhea Musculoskeletal: arthralgia, myalgia. denies: back pain, joint swelling Skin: denies: rash, lesions Neurological: denies: headache, weakness, numbness, paresthesias, confusion, abnormal gait ED Past Medical Hx - Past Medical History Hx Hypertension: No Hx Heart Attack/AMI: No Hx Congestive Heart Failure: No Hx Deep Vein Thrombosis: No Hx Pulmonary Embolism: No Hx Arthritis: Yes Hx Asthma: Yes Hx COPD: Yes Hx Tuberculosis: No Hx HIV: No - Surgical History Hx Coronary Stent: No Hx Pacemaker: No Hx Internal Defibrillator: No Additional Surgical History: [place] cataract surgery - Social History Smoking Status: Former Smoker Substance Use Type: Alcohol - Medications Home Medications: Home Medications Medication Instructions Recorded Confirmed Last Taken Type Albuterol Sulfate [Ventolin HFA] 1 puff IH Q4H PRN 03/17/18 03/17/18 Unknown History Phyllis Reina [Ginger Reina] 75 mg PO BID 03/17/18 03/17/18 2 Days Ago History ~03/15/18 Fluticasone/Salmeterol [Advair 1 puff IH Q12H 03/17/18 03/17/18 2 Days Ago History 250-50 Diskus] ~03/15/18 Gabapentin [Neurontin] 300 mg PO BID 03/17/18 03/17/18 2 Days Ago History ~03/15/18 Ipratropium/Albuterol Sulfate 0.5 mg IH Q6H 03/17/18 03/17/18 2 Days Ago History [DUONEB *Not for PRN Use*] ~03/15/18 Ondansetron [Zofran ODT TAB] 8 mg PO Q8HR 03/17/18 03/17/18 2 Days Ago History ~03/15/18 Oxybutynin [Ditropan] 5 mg PO BID 03/17/18 03/17/18 2 Days Ago History ~03/15/18 Ranitidine HCl [Zantac] 300 mg PO DAILY 03/17/18 03/17/18 2 Days Ago History ~03/15/18 predniSONE [Deltasone] 20 mg PO QDAY 03/17/18 03/17/18 2 Days Ago History ~03/15/18 tiZANidine [Zanaflex] 4 mg PO DAILY 03/17/18 03/17/18 2 Days Ago History ~03/15/18 traMADol [Ultram 50 MG tab] 50 mg PO BID 03/17/18 03/17/18 2 Days Ago History ~03/15/18 ED Physical Exam - General Limitations: No Limitations General appearance: alert, in no apparent distress - Head Head exam: Present: atraumatic, normocephalic, normal inspection - Eye Eye exam: Present: normal appearance, PERRL - ENT ENT exam: Present: normal exam, normal orophraynx, mucous membranes moist - Neck Neck exam: Present: normal inspection, full ROM. Absent: tenderness, meningismus, lymphadenopathy, thyromegaly - Respiratory Respiratory exam: Present: normal lung sounds bilaterally. Absent: respiratory distress, wheezes, rales, rhonchi, stridor, chest wall tenderness, accessory muscle use, decreased breath sounds, prolonged expiratory - Cardiovascular Cardiovascular Exam: Present: regular rate, normal rhythm, normal heart sounds - GI/Abdominal GI/Abdominal exam: Present: soft, normal bowel sounds. Absent: distended, tenderness, guarding, rebound, rigid, organomegaly, mass, bruit, pulsatile mass , hernia - Extremities Exam Extremities exam: Present: normal inspection, normal capillary refill, other ( pain with flexion of the right hip.). Absent: calf tenderness - Back Exam Back exam: Present: normal inspection, full ROM. Absent: CVA tenderness (L) - Neurological Exam Neurological exam: Present: alert, oriented X3, CN II-XII intact, abnormal gait , reflexes normal - Skin Skin exam: Present: warm, intact, normal color ED Course Vital Signs 04/01/18 04/01/18 04/02/18 20:21 20:48 02:27 Temperature 98.4 F 98.4 F 98.3 F Pulse Rate 88 87 71 Respiratory 18 16 14 Rate Blood Pressure 151/61 151/61 153/63 Blood Pressure [Left] O2 Sat by Pulse 97 97 98 Oximetry 04/02/18 04/02/18 04/02/18 08:17 08:31 08:35 Temperature 97.7 F Pulse Rate 75 Respiratory 18 Rate Blood Pressure Blood Pressure 158/69 [Left] O2 Sat by Pulse 99 98 96 Oximetry 04/02/18 04/02/18 04/02/18 08:45 09:00 09:03 Temperature Pulse Rate Respiratory 18 Rate Blood Pressure 155/60 158/66 Blood Pressure [Left] O2 Sat by Pulse 98 98 Oximetry 04/02/18 04/02/18 04/02/18 09:15 09:30 09:45 Temperature Pulse Rate Respiratory Rate Blood Pressure 168/60 159/67 150/61 Blood Pressure [Left] O2 Sat by Pulse 97 98 95 Oximetry ED Medical Decision Making - Lab Data Result diagrams: 04/01/18 21:14 04/01/18 21:14 - Radiology Data Radiology results: report reviewed Referring Physician: NILESH CERON Patient Name: CL SANTOS Date of : 1950 Sex: Female Report Date: 2018-04-02 Report Status: Finalized Findings [facility] [address] [place] [address] XRay Report Signed Patient: CL SANTOS MR#: [id number] : 1950 Acct:[id number] Age/Sex: 67 / F ADM Date: 04/01/18 Loc: ED Attending Dr: Ordering Physician: NILESH CERON Date of Service: 04/02/18 Procedure(s): XR pelvis 1-2V Accession Number(s): [id number] cc: NILESH CERON Fluoro Time In Minutes: FINAL REPORT EXAM: XR PELVIS 1-2V HISTORY: RT hip pain TECHNIQUE: Single view pelvis. PRIORS: None currently available. FINDINGS: PELVIS: Sacroiliac joints are unremarkable. There is no acute dislocation. There is no acute fracture. There is no evidence for healing fracture. There is no cortical destruction to suggest osteomyelitis. There are no suspicious osseous lesions. IUD within the pelvis. Degenerative changes in both hips and spine. Vascular calcifications. IMPRESSION: No acute osseous findings. Degenerative changes in both hips and spine. Transcribed By: TYM Dictated By: PORTIA HARDEN MD Electronically Authenticated By: PORTIA HARDEN MD Signed Date/Time: 04/02/18927 DD/ 7 TD/TT: 04/02/18927 - Medical Decision Making Patient is 67-year-old female presented to the ER complaining of right upper thigh pain for the last 3 days. The patient has a slight decrease range of motion to the right hip. Hip x-ray is negative for acute finding. Patient had a right bundle ultrasound which is negative for DVT. Patient symptoms improved significantly after morphine. I believe the patient's symptoms is most likely related to her ongoing arthritis. I will prescribe patient some pain medicine and advised her to follow up with her primary care physician for further evaluation. I also advised the patient to return to the ER if her symptoms are not improving. Critical care attestation.: If time is entered above; I have spent that time in minutes in the direct care of this critically ill patient, excluding procedure time. ED Disposition Clinical Impression: Right thigh pain, Right hip pain Disposition: TO HOME OR SELFCARE Is pt being admited?: No Condition: Stable Instructions: Osteoarthritis (ED) Referrals: BRAYDEN PULLIAM [Other] - 3-5 Days
--- NOTE | 2018-04-02 09:29 | XRay Report ---
FINAL REPORT EXAM: XR PELVIS 1-2V HISTORY: RT hip pain TECHNIQUE: Single view pelvis. PRIORS: None currently available. FINDINGS: PELVIS: Sacroiliac joints are unremarkable. There is no acute dislocation. There is no acute fracture. There is no evidence for healing fracture. There is no cortical destruction to suggest osteomyelitis. There are no suspicious osseous lesions. IUD within the pelvis. Degenerative changes in both hips and spine. Vascular calcifications. IMPRESSION: No acute osseous findings. Degenerative changes in both hips and spine.
[2018-04-02 12:24] VITALS: BP 155/70
== END 2018-04-02 12:14 | disposition home or self-care (01) ==
LOC: ED 20:15
DX: M79.651 Pain in right thigh (principal); M25.551 Pain in right hip; M19.90 Unspecified osteoarthritis, unspecified site; J44.9 Chronic obstructive pulmonary disease, unspecified; Z87.891 Personal history of nicotine dependence; Z88.1 Allergy status to other antibiotic agents; Z88.0 Allergy status to penicillin
CPT/HCPCS: 36415; 72170; 80053; 85025; 93971; 96372; 99284; J2270; J2405

== ENCOUNTER 2018-08-16 11:43 | Outpatient (CLI) | payer MEDICARE ==
--- NOTE | 2018-08-16 16:36 | XRay Report ---
FINAL REPORT EXAM: XRAY LUMBAR COMPLETE HISTORY: lower back pain TECHNIQUE: Lumbar spine five views PRIORS: None. FINDINGS: Multilevel degenerative disc space narrowing noted throughout the lumbar spine with vacuum disc prese nt from L1-L2 through L5-S1. Small marginal vertebral body osteophytes are noted. Sclerotic endplate changes are noted at L1-L2. Vertebral bodies are normal in height and alignment. Posterior elements a re intact. SI joints are unremarkable. IUD noted in the central pelvis IMPRESSION: Multilevel degenerative disc disease throughout the lumbar spine IUD noted in the pelvis
--- NOTE | 2018-08-16 16:50 | XRay Report ---
FINAL REPORT EXAM: XR HIPS BILATERAL WITH PELVIS 3/4 VW HISTORY: hip pain TECHNIQUE: Bilateral hips and AP pelvis PRIORS: None. FINDINGS: No fracture identified. No dislocation seen. Femoral heads maintain a normal contour. Right hip demon strates concentric joint space narrowing. Bony pelvis is unremarkable. Pubic symphysis and SI joints appear within normal limits. Noted is an IUD seen centrally in the pelvis IMPRESSION: Degenerative changes at the right hip with joint space narrowing IUD noted in the pelvis
== END 2018-08-16 11:44 | disposition home or self-care (01) ==
LOC: XRAY 11:43
PROVIDERS: ATTEND Physical Medicine & Rehabilitation
DX: M51.37 Other intervertebral disc degeneration, lumbosacral region (principal); M48.07 Spinal stenosis, lumbosacral region; M16.11 Unilateral primary osteoarthritis, right hip; M25.552 Pain in left hip; K21.9 Gastro-esophageal reflux disease without esophagitis; J44.9 Chronic obstructive pulmonary disease, unspecified; M19.90 Unspecified osteoarthritis, unspecified site
CPT/HCPCS: 72110; 73521

== ENCOUNTER 2018-09-15 18:21 | Inpatient (IN) | payer MEDICARE ==
[2018-09-15 23:58] LABS: Bilirubin,Urine NEG (Negative); Blood,Urine NEG (Negative); Calcium Oxalate Crystals,Urine 2+; Color,Urine Yellow (Yellow); Mucus,Urine 1+ /HPF; Protein,Urine <15 mg/dL mg/dL (Negative); Urobilinogen,Urine < 2.0 mg/dL (<2.0)
--- NOTE | 2018-09-16 00:48 | Emergency Department Report ---
ED Abdominal Pain HPI - General Chief Complaint: Abdominal Pain Stated Complaint: NAUSEA/CRAMPING Time Seen by Provider: 09/16/18 00:37 Source: patient Mode of arrival: Ambulatory Limitations: No Limitations - History of Present Illness Initial Comments: pt is a 67 y/o w/f who presents for LLQ abd pain x 6 weeks , pain worsens with voding there is intermitteng n/v Stacy avalos MD Complaint: abdominal pain Onset/Timin -: week(s), During the night, Last night Radiation: suprapubic Migration to: LLQ Severity: moderate Severity scale (0 -10): 8 Quality: cramping, aching Consistency: constant Improves With: nothing Worsens With: nothing Associated Symptoms: nausea. denies: vomiting, diarrhea, fever, chills, hematemesis, hematochezia, melena, hematuria, anorexia, syncope, other - Related Data Home Medications Medication Instructions Recorded Confirmed Last Taken Albuterol Sulfate [Ventolin HFA] 1 puff IH Q4H PRN 03/17/18 09/18/18 Unknown Diclofenac [Ginger Reina] 75 mg PO BID 03/17/18 09/18/18 2 Days Ago ~03/15/18 Fluticasone/Salmeterol (Nf) 1 puff IH Q12H 03/17/18 09/18/18 2 Days Ago [Advair 250-50 Diskus (Nf)] ~03/15/18 Gabapentin [Neurontin] 300 mg PO BID 03/17/18 09/18/18 2 Days Ago ~03/15/18 Ipratropium/Albuterol Sulfate 0.5 mg IH Q6H 03/17/18 09/18/18 2 Days Ago [DUONEB *Not for PRN Use*] ~03/15/18 Ondansetron [Zofran ODT TAB] 8 mg PO Q8HR 03/17/18 09/18/18 2 Days Ago ~03/15/18 Oxybutynin [Ditropan] 5 mg PO BID 03/17/18 09/18/18 2 Days Ago ~03/15/18 Ranitidine HCl [Zantac] 300 mg PO DAILY 03/17/18 09/18/18 2 Days Ago ~03/15/18 tiZANidine [Zanaflex 4mg TAB] 4 mg PO DAILY 03/17/18 09/18/18 2 Days Ago ~03/15/18 traMADol [Ultram 50 MG tab] 50 mg PO BID 03/17/18 09/18/18 2 Days Ago ~03/15/18 Previous Rx's Medication Instructions Recorded Last Taken Type HYDROcodone/APAP 5-325 [[place] 1 each PO Q6HR PRN #14 tablet 04/02/18 Unknown Rx 5-325 mg TAB] Ondansetron [Zofran ODT TAB] 4 mg PO Q8HR PRN #14 tab.rapdis 04/02/18 Unknown Rx levoFLOXacin [Levaquin TAB] 750 mg PO Q24HR #7 tablet 09/22/18 Unknown Rx metroNIDAZOLE [Flagyl TAB] 500 mg PO Q8HR #21 tablet 09/22/18 Unknown Rx oxyCODONE /ACETAMINOPHEN [Percocet 1 tab PO Q6HR PRN #12 tablet 09/22/18 Unknown Rx 5/325] Allergies Allergy/AdvReac Type Severity Reaction Status Date / Time erythromycin base Allergy Rash Verified 09/22/18 11:48 [Erythromycin Base] Penicillins Allergy Shortness Verified 09/22/18 11:48 of Breath ED Review of Systems ROS: Stated complaint: NAUSEA/CRAMPING Other details as noted in HPI Constitutional: denies: chills, fever Eyes: denies: eye pain, eye discharge, vision change ENT: denies: ear pain, throat pain Respiratory: denies: cough, shortness of breath, wheezing Cardiovascular: denies: chest pain, palpitations Endocrine: no symptoms reported Gastrointestinal: as per HPI, abdominal pain, nausea, melena, hematochezia Genitourinary: dysuria, frequency. denies: urgency, discharge Musculoskeletal: arthralgia. denies: back pain, joint swelling Skin: denies: rash, lesions Neurological: denies: headache, weakness, paresthesias Psychiatric: denies: anxiety, depression Hematological/Lymphatic: denies: easy bleeding, easy bruising ED Past Medical Hx - Past Medical History Hx Hypertension: Yes Hx Heart Attack/AMI: No Hx Congestive Heart Failure: No Hx Deep Vein Thrombosis: No Hx Pulmonary Embolism: No Hx Arthritis: Yes Hx Asthma: Yes Hx COPD: Yes Hx Tuberculosis: No Hx HIV: No Additional medical history: angina - Surgical History Hx Coronary Stent: No Hx Pacemaker: No Hx Internal Defibrillator: No Additional Surgical History: [place] cataract surgery - Social History Smoking Status: Former Smoker Substance Use Type: None - Medications Home Medications: Home Medications Medication Instructions Recorded Confirmed Last Taken Type Albuterol Sulfate [Ventolin HFA] 1 puff IH Q4H PRN 03/17/18 09/18/18 Unknown History Diclofenac [Ginger Reina] 75 mg PO BID 03/17/18 09/18/18 2 Days Ago History ~03/15/18 Fluticasone/Salmeterol (Nf) 1 puff IH Q12H 03/17/18 09/18/18 2 Days Ago History [Advair 250-50 Diskus (Nf)] ~03/15/18 Gabapentin [Neurontin] 300 mg PO BID 03/17/18 09/18/18 2 Days Ago History ~03/15/18 Ipratropium/Albuterol Sulfate 0.5 mg IH Q6H 03/17/18 09/18/18 2 Days Ago History [DUONEB *Not for PRN Use*] ~03/15/18 Ondansetron [Zofran ODT TAB] 8 mg PO Q8HR 03/17/18 09/18/18 2 Days Ago History ~03/15/18 Oxybutynin [Ditropan] 5 mg PO BID 03/17/18 09/18/18 2 Days Ago History ~03/15/18 Ranitidine HCl [Zantac] 300 mg PO DAILY 03/17/18 09/18/18 2 Days Ago History ~03/15/18 tiZANidine [Zanaflex 4mg TAB] 4 mg PO DAILY 03/17/18 09/18/18 2 Days Ago History ~03/15/18 traMADol [Ultram 50 MG tab] 50 mg PO BID 03/17/18 09/18/18 2 Days Ago History ~03/15/18 HYDROcodone/APAP 5-325 [[place]eland 1 each PO Q6HR PRN #14 tablet 04/02/18 09/18/18 Unknown Rx 5-325 mg TAB] Ondansetron [Zofran ODT TAB] 4 mg PO Q8HR PRN #14 tab.rapdis 04/02/18 09/18/18 Unknown Rx levoFLOXacin [Levaquin TAB] 750 mg PO Q24HR #7 tablet 09/22/18 Unknown Rx metroNIDAZOLE [Flagyl TAB] 500 mg PO Q8HR #21 tablet 09/22/18 Unknown Rx oxyCODONE /ACETAMINOPHEN [Percocet 1 tab PO Q6HR PRN #12 tablet 09/22/18 Unknown Rx 5/325] ED Physical Exam - General Limitations: No Limitations General appearance: alert, in no apparent distress - Head Head exam: Present: atraumatic, normocephalic - Eye Eye exam: Present: normal appearance, PERRL, EOMI Pupils: Present: normal accommodation - ENT ENT exam: Present: mucous membranes moist - Neck Neck exam: Present: normal inspection - Respiratory Respiratory exam: Present: normal lung sounds bilaterally, wheezes, rhonchi. Absent: respiratory distress - Cardiovascular Cardiovascular Exam: Present: regular rate - GI/Abdominal GI/Abdominal exam: Present: soft, tenderness (LLQ ), guarding, normal bowel sounds. Absent: distended, rebound, mass, bruit, hernia - Expanded GI/Abdominal Exam Expanded GI/Abdominal exam: Absent: psoas sign, obturator sign, heel tap sign, Degroot's sign, Rovsing's sign, tenderness at [place]bur[place]'s Point, ascites - Rectal Rectal exam: Present: deferred - Extremities Exam Extremities exam: Present: normal inspection, full ROM. Absent: pedal edema, joint swelling, calf tenderness - Back Exam Back exam: Present: normal inspection, full ROM, CVA tenderness (L), muscle spasm. Absent: tenderness, CVA tenderness (R), paraspinal tenderness, vertebral tenderness, rash noted - Neurological Exam Neurological exam: Present: alert, oriented X3, CN II-XII intact, normal gait, motor sensory deficit, reflexes normal - Psychiatric Psychiatric exam: Present: normal affect, normal mood - Skin Skin exam: Present: warm, dry, intact, normal color. Absent: rash ED Course Vital Signs 09/15/18 09/16/18 19:21 05:07 Temperature 97.7 F 97.9 F Pulse Rate 80 70 Respiratory 16 16 Rate Blood Pressure 129/64 Blood Pressure 98/47 [Right] O2 Sat by Pulse 97 96 Oximetry ED Medical Decision Making - Lab Data Result diagrams: 09/17/18 06:36 09/17/18 06:36 Labs 09/15/18 Unknown Urine Color Yellow Urine Turbidity Clear Urine pH 5.0 Ur Specific [place] 1.025 Urine Protein <15 mg/dl Urine Glucose (UA) Neg Urine Ketones Tr Urine Blood Neg Urine Nitrite Neg Urine Bilirubin Neg Urine Urobilinogen < 2.0 Ur Leukocyte Esterase Sm Urine WBC (Auto) 13.0 H Urine RBC (Auto) 4.0 U Epithel Cells (Auto) 1.0 Calcium Oxalate Crystal 2+ Urine Mucus 1+ Labs 09/15/18 09/16/18 09/16/18 Unknown 01:11 01:11 WBC 15.6 H RBC 4.03 Hgb 12.0 Hct 36.0 MCV 89 MCH 30 MCHC 33 RDW 14.6 Plt Count 372 Lymph % (Auto) 17.2 [place] % (Auto) 6.8 Eos % (Auto) 4.2 Baso % (Auto) 0.7 Lymph # 2.7 [place] # 1.1 H Eos # 0.7 H Baso # 0.1 Seg Neutrophils % 71.1 H Seg Neutrophils # 11.1 H Sodium 136 L Potassium 4.3 Chloride 102.8 Carbon Dioxide 21 L Anion Gap 17 BUN 15 Creatinine 0.5 L Estimated GFR > 60 BUN/Creatinine Ratio 30 Glucose 101 H Lactic Acid Calcium 8.2 L Total Bilirubin 0.50 AST 12 ALT 10 Alkaline Phosphatase 74 Total Protein 5.8 L Albumin 2.8 L Albumin/Globulin Ratio 0.9 Lipase 8 L Urine Color Yellow Urine Turbidity Clear Urine pH 5.0 Ur Specific [place] 1.025 Urine Protein <15 mg/dl Urine Glucose (UA) Neg Urine Ketones Tr Urine Blood Neg Urine Nitrite Neg Urine Bilirubin Neg Urine Urobilinogen < 2.0 Ur Leukocyte Esterase Sm Urine WBC (Auto) 13.0 H Urine RBC (Auto) 4.0 U Epithel Cells (Auto) 1.0 Calcium Oxalate Crystal 2+ Urine Mucus 1+ 09/16/18 03:49 WBC RBC Hgb Hct MCV MCH MCHC RDW Plt Count Lymph % (Auto) [place] % (Auto) Eos % (Auto) Baso % (Auto) Lymph # [place] # Eos # Baso # Seg Neutrophils % Seg Neutrophils # Sodium Potassium Chloride Carbon Dioxide Anion Gap BUN Creatinine Estimated GFR BUN/Creatinine Ratio Glucose Lactic Acid 0.60 L Calcium Total Bilirubin AST ALT Alkaline Phosphatase Total Protein Albumin Albumin/Globulin Ratio Lipase Urine Color Urine Turbidity Urine pH Ur Specific [place] Urine Protein Urine Glucose (UA) Urine Ketones Urine Blood Urine Nitrite Urine Bilirubin Urine Urobilinogen Ur Leukocyte Esterase Urine WBC (Auto) Urine RBC (Auto) U Epithel Cells (Auto) Calcium Oxalate Crystal Urine Mucus - Radiology Data Radiology results: report reviewed, image reviewed FINDINGS: Visualized lower thorax: No significant abnormality. Liver: Normal size and attenuation. Spleen: Normal size and attenuation. Gallbladder and biliary system: Normal. Pancreas: Normal. Adrenals: Normal. Kidneys: There are no kidney stones or ureteral stones. There is no hydronephrosis.. GI tract: There is mucosal thickening of the left colon with inflammation of the surrounding fat. Findings suggest focal diverticulitis versus colitis. There is no obstruction or perforation. This stomach, small bowel and appendix are normal. . Lymph nodes and mesentery: Normal. Vasculature: Normal.. Bladder: Normal. Reproductive organs: There are calcified fibroids in the uterus.. Peritoneum: There is no ascites, free air, abscess or adenopathy.. Musculoskeletal structures: No significant abnormality. IMPRESSION: Acute left colitis versus diverticulitis. There is no perforation or abscess. There is no bowel obstruction. . This document is electronically signed by Tyson Villagomez MD., September 16 2018 02:14:09 AM ET Transcribed By: CO Dictated By: TYSON VILLAGOMEZ MD Electronically Authenticated By: TYSON VILLAGOMEZ MD Signed Date/Time: 09/16/18215 DD/ 1 TD/TT: 09/16/18142 - Medical Decision Making CT : Acute Left Colitis versus Diverticulitis, pt is pcn allergic tx with levaquin and flagyl, plan: consult hospitalist for admission and iv abx therapy secondary to persistant abd pain and n/v discussed tx plan with patient and family members , verbalized agreement with same. Critical care attestation.: If time is entered above; I have spent that time in minutes in the direct care of this critically ill patient, excluding procedure time. ED Disposition Clinical Impression: GERD (gastroesophageal reflux disease) Qualifiers: Esophagitis presence: with esophagitis Qualified Code(s): K21.0 - Gastro- esophageal reflux disease with esophagitis Disposition: OP ADMIT IP TO THIS HOSP Is pt being admited?: Yes Does the pt Need Aspirin: No Condition: Stable
[2018-09-16 01:21] LABS: Basophils # (Auto) 0.1 K/mm3 (0.0-0.1); Basophils % (Auto) 0.7 % (0.0-1.8); Eosinophils # (Auto) 0.7 K/mm3 (0.0-0.4); Eosinophils % (Auto) 4.2 % (0.0-4.3); Lymphocytes # (Auto) 2.7 K/mm3 (1.2-5.4); Lymphocytes % (Auto) 17.2 % (13.4-35.0); Mean Corpuscular HGB Conc 33 % (30-34); Mean Corpuscular Volume 89 fl (79-97); Monocytes # (Auto) 1.1 K/mm3 (0.0-0.8); Monocytes % (Auto) 6.8 % (0.0-7.3); Platelet Count 372 K/mm3 (140-440); Red Blood Count 4.03 M/mm3 (3.65-5.03); Red Cell Distribution Width 14.6 % (13.2-15.2)
[2018-09-16 01:41] LABS: Alanine Aminotransferase 10 units/L (7-56); Albumin 2.8 g/dL (3.9-5); BUN/Creatinine Ratio 30; Blood Urea Nitrogen 15 mg/dL (7-17); Calcium 8.2 mg/dL (8.4-10.2); Hemolysis Index 38
--- NOTE | 2018-09-16 02:16 | Cat Scan Report ---
PROCEDURE: CT ABDOMEN PELVIS WO CON TECHNIQUE: Computerized axial tomography of the abdomen and pelvis was performed without intravenous contrast. This study is performed without intravascular contrast material and its sensitivity for ab dominal and pelvic pathology, including neoplasms, inflammation, abscess, free fluid, thrombosis, art erial dissection and infarction, is reduced compared with a contrast enhanced study. CT DOSE LENGTH PRODUCT: mGycm HISTORY: abd pain COMPARISONS: None . FINDINGS: Visualized lower thorax: No significant abnormality. Liver: Normal size and attenuation. Spleen: Normal size and attenuation. Gallbladder and biliary system: Normal. Pancreas: Normal. Adrenals: Normal. Kidneys: There are no kidney stones or ureteral stones. There is no hydronephrosis.. GI tract: There is mucosal thickening of the left colon with inflammation of the surrounding fat. Fi ndings suggest focal diverticulitis versus colitis. There is no obstruction or perforation. This stomach, small bowel and appendix are normal. . Lymph nodes and mesentery: Normal. Vasculature: Normal.. Bladder: Normal. Reproductive organs: There are calcified fibroids in the uterus.. Peritoneum: There is no ascites, free air, abscess or adenopathy.. Musculoskeletal structures: No significant abnormality. IMPRESSION: Acute left colitis versus diverticulitis. There is no perforation or abscess. There is no bowel obstruction. . This document is electronically signed by Tyson De La Cruz MD., September 16 2018 02:14:09 AM ET
[2018-09-16] MEDS ORDERED: LEVAQUIN 500MG/100ML 500 MG/100 ML BAG IV ONE (02:36)
[2018-09-16] MEDS ORDERED: FLAGYL 500 MG/100 ML 500 MG/100 ML BAG IV ONE (02:36)
[2018-09-16] MEDS ORDERED: NACL 0.9% 1000 ML 1,000 ML IV ONE (02:38)
[2018-09-16] MEDS: MORPHINE IV PRN ×2 (04:53→12:33)
[2018-09-16] MEDS: ZOFRAN IV SCH ×3 (04:53→19:01)
[2018-09-16] MEDS ORDERED: NACL 0.9% 1000 ML 1,000 ML IV SCH (05:00)
[2018-09-16] MEDS ORDERED: PROAIR IH PRN (07:42)
[2018-09-16] MEDS ORDERED: TYLENOL PO PRN (07:45)
[2018-09-16] MEDS ORDERED: SODIUM CHLORIDE FLUSH SYRINGE 10 ML IV PRN (07:45)
[2018-09-16] MEDS ORDERED: ZOFRAN IV PRN (07:45)
[2018-09-16] MEDS ORDERED: NON-FORMULARY (Fluticasone/Salmeterol 1 PUFF) IH SCH (07:45)
[2018-09-16] MEDS ORDERED: PROVENTIL IH PRN (07:51)
[2018-09-16] MEDS ORDERED: NACL 0.9% 500 ML 500 ML IV ONE (08:32)
[2018-09-16] MEDS: D5NS 1,000 ML IV SCH ×2 (08:44→17:49)
[2018-09-16] MEDS: HEPARIN SUB-Q SCH ×3 (08:54→22:16)
[2018-09-16] MEDS: PEPCID IV SCH ×2 (09:05→22:14)
[2018-09-16] MEDS: ULTRAM PO SCH ×2 (09:05→22:12)
[2018-09-16] MEDS: LEVAQUIN 500MG/100ML 500 MG/100 ML BAG IV SCH (10:00)
--- NOTE | 2018-09-16 11:01 | History and Physical Report ---
History of Present Illness Date of examination: 09/16/18 Date of admission: 09/16/18 04:41 Chief complaint: abdominal pain x 6 weeks History of present illness: Patient is a 67 year old female with hx of COPD, Ex-smoker, non obstructive CAD as reviealed in cardiac cath 03/2018, GERD AND LUNG MASS currently undergoing work up outpatient, who presented to the ED with complaints of LLQ for 6 weeks S she informed of the ED physician. She reports that this was unemployed and is associated with intermittent nausea vomiting diarrhea.. Patient was recommended for admission on my examination the patient reveals that this has actually been going on for 3 weeks. She denies any fever. She reports intermittent diarrhea with constipation. She denies any history of nephrolithiasis. SHE this morning continues to complain of pain which she states since of 5/10 in intensity was located in the left mid to lower quadrant. She denies any bright red blood per rectum or melanotic stool. ROS Constitutional: No fever, fatigue or weight loss. Skin: No rash. Eyes: No recent vision problems or eye pain. ENT: No congestion, ear pain, or sore throat. Endocrine: No thyroid problems. Cardiovascular: No chest pain. Respiratory: No cough, shortness of breath, congestion, or wheezing. Gastrointestinal: Positive abdominal pain, nausea, vomiting, and diarrhea with intermittent constipation. Genitourinary: No dysuria. Musculoskeletal: No joint swelling. Neurologic: No seizures. Hematologic: No unusual bruising or bleeding. Psychiatric: No psychiatric problems, hallucinations or depression. All other systems reviewed and otherwise negative. Past History Past Medical History: CAD, COPD, hypertension, hyperlipidemia Past Surgical History: Other (cardiac cath) Social history: lives with family Family history: no significant family history Medications and Allergies Allergies Allergy/AdvReac Type Severity Reaction Status Date / Time erythromycin base Allergy Rash Verified 12/01/17 15:59 [Erythromycin Base] Penicillins Allergy Shortness Verified 12/01/17 15:59 of Breath Home Medications Medication Instructions Recorded Confirmed Last Taken Type Albuterol Sulfate [Ventolin HFA] 1 puff IH Q4H PRN 03/17/18 06/25/18 Unknown History Diclofenac [Voltarerobert Reina] 75 mg PO BID 03/17/18 06/25/18 2 Days Ago History ~03/15/18 Fluticasone/Salmeterol [Advair 1 puff IH Q12H 03/17/18 06/25/18 2 Days Ago History 250-50 Diskus] ~03/15/18 Gabapentin [Neurontin] 300 mg PO BID 03/17/18 06/25/18 2 Days Ago History ~03/15/18 Ipratropium/Albuterol Sulfate 0.5 mg IH Q6H 03/17/18 06/25/18 2 Days Ago History [DUONEB *Not for PRN Use*] ~03/15/18 Ondansetron [Zofran ODT TAB] 8 mg PO Q8HR 03/17/18 06/25/18 2 Days Ago History ~03/15/18 Oxybutynin [Ditropan] 5 mg PO BID 03/17/18 06/25/18 2 Days Ago History ~03/15/18 Ranitidine HCl [Zantac] 300 mg PO DAILY 03/17/18 06/25/18 2 Days Ago History ~03/15/18 tiZANidine [Zanaflex] 4 mg PO DAILY 03/17/18 06/25/18 2 Days Ago History ~03/15/18 traMADol [Ultram 50 MG tab] 50 mg PO BID 03/17/18 06/25/18 2 Days Ago History ~03/15/18 HYDROcodone/APAP 5-325 [Gamaliel 1 each PO Q6HR PRN #14 tablet 04/02/18 06/25/18 Unknown Rx 5-325 mg TAB] Ondansetron [Zofran ODT TAB] 4 mg PO Q8HR PRN #14 tab.rapdis 04/02/18 06/25/18 Unknown Rx levoFLOXacin [Levaquin TAB] 750 mg PO Q24HR #4 tablet 06/27/18 Unknown Rx methylPREDNISolone [Medrol Dose 1 dose PO QDAY #1 pack 06/27/18 Unknown Rx Payam] Active Meds: Active Medications Acetaminophen (Tylenol) 650 mg PO Q4H PRN PRN Reason: Pain MILD(1-3)/Fever >100.5/[place] Acetaminophen/Hydrocodone Bitart (Gamaliel 5/325) 1 each PO Q6HR PRN PRN Reason: Pain Albuterol (Proventil) 2.5 mg IH Q4HRT PRN PRN Reason: Shortness Of Breath Albuterol/Ipratropium (Duoneb *Not For Prn Use*) 1 ampul IH Q6H [facility] Arformoterol Tartrate (Brovana Nebu) 15 mcg IH Q12HRT [facility] Budesonide (Pulmicort) 1 mg IH Q12HRT [facility] Famotidine (Pepcid) 20 mg IV BID [facility] Last Admin: 09/16/18 09:05 Dose: 20 mg Documented by: Gabapentin (Neurontin) 300 mg PO BID [facility] Heparin Sodium (Porcine) (Heparin) 5,000 unit SUB-Q Q8HR [facility] Last Admin: 09/16/18 08:54 Dose: 5,000 unit Documented by: Levofloxacin/Dextrose (Levaquin 500mg/100ml) 500 mg in 100 mls @ 100 mls/hr IV Q24HR [facility]; Protocol Metronidazole (Flagyl 500 Mg/100 Ml) 500 mg in 100 mls @ 100 mls/hr IV BID [facility]; Protocol Sodium Chloride (Nacl 0.9% 1000 Ml) 1,000 mls @ 125 mls/hr IV DIRECT [facility] Dextrose/Sodium Chloride (D5ns) 1,000 mls @ 125 mls/hr IV DIRECT [facility] Last Admin: 09/16/18 08:44 Dose: 125 mls/hr Documented by: Morphine Sulfate (Morphine) 2 mg IV Q6H PRN PRN Reason: Pain, Moderate (4-6) Last Admin: 09/16/18 04:53 Dose: 2 mg Documented by: Ondansetron HCl (Zofran) 4 mg IV Q6HR [facility] Last Admin: 09/16/18 04:53 Dose: 4 mg Documented by: Ondansetron HCl (Zofran Odt) 8 mg PO Q8HR [facility] Ondansetron HCl (Zofran) 4 mg IV Q8H PRN PRN Reason: Nausea And Vomiting Oxybutynin Chloride (Ditropan) 5 mg PO BID [facility] Sodium Chloride (Sodium Chloride Flush Syringe 10 Ml) 10 ml IV BID [facility] Sodium Chloride (Sodium Chloride Flush Syringe 10 Ml) 10 ml IV PRN PRN PRN Reason: LINE FLUSH Tizanidine HCl (Zanaflex) 4 mg PO DAILY [facility] Tramadol HCl (Ultram) 50 mg PO BID [facility] Last Admin: 09/16/18 09:05 Dose: 50 mg Documented by: Exam - Physical Exam Narrative exam: VITAL SIGNS: Reviewed. GENERAL: The patient appeared well nourished and normally developed. Obese. Vital signs as documented. HEAD: No signs of head trauma. EYES: Pupils are equal. Extraocular motions intact. EARS: Hearing grossly intact. MOUTH: Oropharynx is normal. NECK: No adenopathy, no JVD. CHEST: Chest with clear breath sounds bilaterally. No wheezes, rales, or rhonchi. CARDIAC: Regular rate and rhythm. S1 and S2, without murmurs, gallops, or rubs. VASCULAR: No Edema. Peripheral pulses normal and equal in all extremities. ABDOMEN: Soft, normoactive distention but left lower quadrant tenderness with mild guarding.. No rebound or guarding, and no masses palpated. Bowel Sounds normal. MUSCULOSKELETAL: Good range of motion of all major joints. Extremities without clubbing, cyanosis or edema. NEUROLOGIC EXAM: Alert and oriented x 3. No focal sensory or strength deficits. Speech normal. Follows commands. PSYCHIATRIC: Mood normal. SKIN: No rash or lesions. - Constitutional Vitals: Temp Pulse Resp BP Pulse Ox 97.9 F 70 16 98/47 96 09/16/18 05:07 09/16/18 05:07 09/16/18 05:07 09/16/18 05:07 09/16/18 05:07 Results - Labs CBC & Chem 7: 09/16/18 01:11 09/16/18 01:11 Labs: Laboratory Last Values WBC 15.6 K/mm3 (4.5-11.0) H 09/16/18 01:11 RBC 4.03 M/mm3 (3.65-5.03) 09/16/18 01:11 Hgb 12.0 gm/dl (10.1-14.3) 09/16/18 01:11 Hct 36.0 % (30.3-42.9) 09/16/18 01:11 MCV 89 fl (79-97) 09/16/18 01:11 MCH 30 pg (28-32) 09/16/18 01:11 MCHC 33 % (30-34) 09/16/18 01:11 RDW 14.6 % (13.2-15.2) 09/16/18 01:11 Plt Count 372 K/mm3 (140-440) 09/16/18 01:11 Lymph % (Auto) 17.2 % (13.4-35.0) 09/16/18 01:11 [place] % (Auto) 6.8 % (0.0-7.3) 09/16/18 01:11 Eos % (Auto) 4.2 % (0.0-4.3) 09/16/18 01:11 Baso % (Auto) 0.7 % (0.0-1.8) 09/16/18 01:11 Lymph # 2.7 K/mm3 (1.2-5.4) 09/16/18 01:11 [place] # 1.1 K/mm3 (0.0-0.8) H 09/16/18 01:11 Eos # 0.7 K/mm3 (0.0-0.4) H 09/16/18 01:11 Baso # 0.1 K/mm3 (0.0-0.1) 09/16/18 01:11 Seg Neutrophils % 71.1 % (40.0-70.0) H 09/16/18 01:11 Seg Neutrophils # 11.1 K/mm3 (1.8-7.7) H 09/16/18 01:11 Sodium 136 mmol/L (137-145) L 09/16/18 01:11 Potassium 4.3 mmol/L (3.6-5.0) 09/16/18 01:11 Chloride 102.8 mmol/L (98-107) 09/16/18 01:11 Carbon Dioxide 21 mmol/L (22-30) L 09/16/18 01:11 Anion Gap 17 mmol/L 09/16/18 01:11 BUN 15 mg/dL (7-17) 09/16/18 01:11 Creatinine 0.5 mg/dL (0.7-1.2) L 09/16/18 01:11 Estimated GFR > 60 ml/min 09/16/18 01:11 BUN/Creatinine Ratio 30 % 09/16/18 01:11 Glucose 101 mg/dL (65-100) H 09/16/18 01:11 Lactic Acid 0.60 mmol/L (0.7-2.0) L 09/16/18 03:49 Calcium 8.2 mg/dL (8.4-10.2) L 09/16/18 01:11 Total Bilirubin 0.50 mg/dL (0.1-1.2) 09/16/18 01:11 AST 12 units/L (5-40) 09/16/18 01:11 ALT 10 units/L (7-56) 09/16/18 01:11 Alkaline Phosphatase 74 units/L (35-129) 09/16/18 01:11 Total Protein 5.8 g/dL (6.3-8.2) L 09/16/18 01:11 Albumin 2.8 g/dL (3.9-5) L 09/16/18 01:11 Albumin/Globulin Ratio 0.9 % 09/16/18 01:11 Lipase 8 units/L (13-60) L 09/16/18 01:11 Urine Color Yellow (Yellow) 09/15/18 Unknown Urine Turbidity Clear (Clear) 09/15/18 Unknown Urine pH 5.0 (5.0-7.0) 09/15/18 Unknown Ur Specific [place] 1.025 (1.003-1.030) 09/15/18 Unknown Urine Protein <15 mg/dl mg/dL (Negative) 09/15/18 Unknown Urine Glucose (UA) Neg mg/dL (Negative) 09/15/18 Unknown Urine Ketones Tr mg/dL (Negative) 09/15/18 Unknown Urine Blood Neg (Negative) 09/15/18 Unknown Urine Nitrite Neg (Negative) 09/15/18 Unknown Urine Bilirubin Neg (Negative) 09/15/18 Unknown Urine Urobilinogen < 2.0 mg/dL (<2.0) 09/15/18 Unknown Ur Leukocyte Esterase Sm (Negative) 09/15/18 Unknown Urine WBC (Auto) 13.0 /HPF (0.0-6.0) H 09/15/18 Unknown Urine RBC (Auto) 4.0 /HPF (0.0-6.0) 09/15/18 Unknown U Epithel Cells (Auto) 1.0 /HPF (0-13.0) 09/15/18 Unknown Calcium Oxalate Crystal 2+ 09/15/18 Unknown Urine Mucus 1+ /HPF 09/15/18 Unknown - Imaging and Cardiology CT scan - abdomen: image reviewed (colitis) Assessment and Plan Assessment and plan: Patient is a 67 year old female with hx of COPD, Ex-smoker, non obstructive CAD as reviealed in cardiac cath 03/2018, GERD AND LUNG MASS currently undergoing wor k up outpatient, who presented to the ED with complaints of LLQ for 6 weeks S she informed of the ED physician. She reports that this was unemployed and is associated with intermittent nausea vomiting diarrhea.. Patient was recommended for admission on my examination the patient reveals that this has actually been going on for 3 weeks. She denies any fever. She reports intermittent diarrhea with constipation. She denies any history of nephrolithiasis. SHE this morning continues to complain of pain which she states since of 5/10 in intensity was located in the left mid to lower quadrant. She denies any bright red blood per rectum or melanotic stool. Assessment Peritoneal Irritation Colitis- ischemic vs infectious, vs inflammatory with underlying IBS Lung mass-undergoing outpatient work up SIRS with no organ dysfunction COPD- stable Mobrid obesity Leukocytosis OAB- per Hx GERD Plan: Admit to [facility] NPO Today and clear liquids in am if able to tolerate pain control Continue abx. IV fluids with D5NS GI consult CT abd and pelvis with contrast DVT/GI prophy Plan discussed in detail with the patient. Advance Directives: Yes Plan of care discussed with patient/family: Yes
[2018-09-16] MEDS: DUONEB *Not for PRN Use IH SCH ×3 (11:51→19:53)
[2018-09-16] MEDS: FLAGYL 500 MG/100 ML 500 MG/100 ML BAG IV SCH ×2 (12:26→22:22)
[2018-09-16] MEDS: ZANAFLEX PO SCH (12:32)
[2018-09-16] MEDS: DITROPAN PO SCH ×2 (12:32→22:13)
[2018-09-16] MEDS: SODIUM CHLORIDE FLUSH SYRINGE 10 ML IV SCH ×2 (12:32→22:15)
[2018-09-16] MEDS ORDERED: AMBIEN PO PRN (12:53)
[2018-09-16] MEDS: NEURONTIN PO SCH ×2 (13:41→22:13)
[2018-09-16] MEDS: ZOFRAN ODT PO SCH ×2 (17:46→22:12)
[2018-09-16] MEDS: NORCO 5/325 PO PRN (17:48)
[2018-09-16] MEDS: PULMICORT IH SCH (19:50)
[2018-09-16] MEDS: BROVANA NEBU IH SCH (19:51)
--- NOTE | 2018-09-16 20:52 | Cat Scan Report ---
PROCEDURE: CT ABDOMEN PELVIS W CON TECHNIQUE: Computerized axial tomography of the abdomen and pelvis was performed after the IV inject ion of iodinated nonionic contrast. HISTORY: abdominal pain ?ischemic COMPARISONS: Unenhanced CT scan of the abdomen and pelvis earlier today. . FINDINGS: Lower Lung hein: Minimal dependent atelectasis otherwise clear. Upper Abdomen: The liver, gallbladder, the adrenal glands, the pancreas and spleen are unremarkable. Kidneys, Ureters and Urinary bladder: No abnormalities are seen. Retroperitoneum: Atherosclerotic changes are seen in the abdominal aorta. No aneurysm is visualized. Nonspecific subcentimeter lymph nodes are seen in the retroperitoneum. No pathologically enlarged ly mph nodes are identified. Bowel: The nevarez of the mid descending colon extending into the sigmoid colon appear diffusely thick ened. There is mild edematous change seen in the adjacent mesentery. There is mild sigmoid diverticul osis. No abscess, ascites or free intraperitoneal gas is visualized. There is no evidence of bowel ob struction. Reproductive organs: An IUD is present. The uterus and adnexa otherwise are unremarkable. Other: No acute bone abnormalities are identified. There are diffuse degenerative changes seen throug hout the visualized thoracic and lumbar spine. There is advanced arthritic change of the right hip. L arge subcortical cyst visualized in the roof of the acetabulum, smaller subcortical cysts visualized in the femoral head. IMPRESSION: Abnormal appearance mid descending colon extending into the sigmoid colon. There is mild inflammatory change in the adjacent mesentery. There is diverticulosis therefore this could represent changes rel ated to diverticulitis. Other nonspecific colitis could present in this manner including other infect ious colitis, inflammatory bowel disease and ischemic colitis. IUD present. Uterus otherwise unremarkable. This document is electronically signed by Edinson Wright MD., September 16 2018 08:49:56 PM ET
[2018-09-17] MEDS: ZOFRAN IV SCH ×4 (03:47→19:33)
[2018-09-17] MEDS: MORPHINE IV PRN ×2 (03:54→14:18)
[2018-09-17] MEDS: DUONEB *Not for PRN Use IH SCH ×4 (04:35→20:20)
[2018-09-17] MEDS: HEPARIN SUB-Q SCH ×3 (06:28→21:15)
[2018-09-17] MEDS: ZOFRAN ODT PO SCH ×3 (06:38→21:08)
[2018-09-17 07:14] LABS: Basophils # (Auto) 0.1 K/mm3 (0.0-0.1); Basophils % (Auto) 0.7 % (0.0-1.8); Eosinophils # (Auto) 0.8 K/mm3 (0.0-0.4); Eosinophils % (Auto) 9.1 % (0.0-4.3); Hematocrit 30.7 % (30.3-42.9); Hemoglobin 10.1 gm/dl (10.1-14.3); Lymphocytes % (Auto) 22.8 % (13.4-35.0); Mean Corpuscular HGB Conc 33 % (30-34); Mean Corpuscular Volume 92 fl (79-97); Monocytes # (Auto) 0.7 K/mm3 (0.0-0.8); Monocytes % (Auto) 7.6 % (0.0-7.3); Platelet Count 309 K/mm3 (140-440); Red Blood Count 3.36 M/mm3 (3.65-5.03); Red Cell Distribution Width 14.5 % (13.2-15.2)
[2018-09-17] MEDS: PULMICORT IH SCH ×2 (07:27→20:17)
[2018-09-17] MEDS: BROVANA NEBU IH SCH ×2 (07:27→20:17)
[2018-09-17 07:36] LABS: BUN/Creatinine Ratio 14; Blood Urea Nitrogen 7 mg/dL (7-17); Calcium 7.8 mg/dL (8.4-10.2); Hemolysis Index 43
[2018-09-17] MEDS: D5NS 1,000 ML IV SCH ×2 (09:11→21:14)
[2018-09-17] MEDS: ULTRAM PO SCH ×2 (10:24→21:09)
[2018-09-17] MEDS: NEURONTIN PO SCH ×2 (10:24→21:08)
[2018-09-17] MEDS: DITROPAN PO SCH ×2 (10:24→21:09)
[2018-09-17] MEDS: PEPCID IV SCH ×2 (10:24→21:10)
[2018-09-17] MEDS: SODIUM CHLORIDE FLUSH SYRINGE 10 ML IV SCH ×2 (10:25→22:19)
[2018-09-17] MEDS: ZANAFLEX PO SCH (10:25)
[2018-09-17] MEDS: LEVAQUIN 500MG/100ML 500 MG/100 ML BAG IV SCH (10:25)
--- NOTE | 2018-09-17 10:47 | XRay Report ---
EXAM: XR ABDOMEN 1V AP HISTORY: abdominal pain TECHNIQUE: Portable supine views dated 09/17/2018 at 8:11 AM COMPARISON: None available. FINDINGS: Contrast material is seen within the right and transverse colon and splenic flexure. Abundant fecal m aterial is seen within the large bowel loops; nonspecific finding; rule out constipation. The bowel g as pattern is otherwise nonspecific and nonobstructive. There is no gross organomegaly, free intrape ritoneal air, or suspicious calcifications seen. Multilevel degenerative disease is seen in the lumba r spine. The visualized bony structures are otherwise within normal limits. An IUD is noted in situ. IMPRESSION: 1. Abundant fecal material is seen within the large bowel loops; nonspecific finding; rule out consti pation. 2. No gross organomegaly, free intraperitoneal air, or suspicious calcifications seen. This document is electronically signed by Modesta Ferrer MD., September 17 2018 10:43:57 AM ET
--- NOTE | 2018-09-17 12:03 | Progress Note ---
Assessment and Plan Assessment and plan: Patient is a 67 year old female with hx of COPD, Ex-smoker, non obstructive CAD as reviealed in cardiac cath 03/2018, GERD AND LUNG MASS currently undergoing work up outpatient, who presented to the ED with complaints of LLQ for 6 weeks S she informed of the ED physician. She reports that this was unemployed and is associated with intermittent nausea vomiting diarrhea.. Patient was recommended for admission on my examination the patient reveals that this has actually been going on for 3 weeks. She denies any fever. She reports intermittent diarrhea with constipation. She denies any history of nephrolithiasis. SHE this morning continues to complain of pain which she states since of 5/10 in intensity was located in the left mid to lower quadrant. She denies any bright red blood per rectum or melanotic stool. CT with contrast yelids to more inflammatory findings but cannot rule out ischemic Assessment Peritoneal Irritation Colitis- ischemic vs infectious, vs inflammatory with underlying IBS Lung mass-undergoing outpatient work up SIRS with no organ dysfunction Acute cystitis- Pt complained to nurse of dysuria. POA COPD- stable Mobrid obesity- Counselling provided Leukocytosis-Resolved OAB- per Hx GERD Plan: Continue supportive care Increase to full liquid diet while awaiting GI eval pain control Continue abx. IV fluids with D5NS DVT/GI prophy Plan discussed in detail with the patient. If no further intervention will plan discharge in am. History Interval history: Patient seen and examined, admitted with colitis, Reports improvement in abdominal pain. tolerating clear liquids. No adverse event reported by Nursing staff. Hospitalist Physical - Physical exam Narrative exam: VITAL SIGNS: Reviewed. GENERAL: The patient appeared well nourished and normally developed. Obese. Vital signs as documented. HEAD: No signs of head trauma. EYES: Pupils are equal. Extraocular motions intact. EARS: Hearing grossly intact. MOUTH: Oropharynx is normal. NECK: No adenopathy, no JVD. CHEST: Chest with clear breath sounds bilaterally. No wheezes, rales, or rhonchi. CARDIAC: Regular rate and rhythm. S1 and S2, without murmurs, gallops, or rubs. VASCULAR: No Edema. Peripheral pulses normal and equal in all extremities. ABDOMEN: Soft,no guarding, no distension, still sore. No rebound or guarding, and no masses palpated. Bowel Sounds normal. MUSCULOSKELETAL: Good range of motion of all major joints. Extremities without clubbing, cyanosis or edema. NEUROLOGIC EXAM: Alert and oriented x 3. No focal sensory or strength deficits. Speech normal. Follows commands. PSYCHIATRIC: Mood normal. SKIN: No rash or lesions. - Constitutional Vitals: Temp Pulse Resp BP Pulse Ox 97.6 F 73 18 97/52 98 09/17/18 07:44 09/17/18 08:10 09/17/18 08:10 09/17/18 07:44 09/17/18 07:44 Results - Labs CBC & Chem 7: 09/17/18 06:36 09/17/18 06:36 Labs: Laboratory Last Values WBC 8.7 K/mm3 (4.5-11.0) 09/17/18 06:36 RBC 3.36 M/mm3 (3.65-5.03) L 09/17/18 06:36 Hgb 10.1 gm/dl (10.1-14.3) 09/17/18 06:36 Hct 30.7 % (30.3-42.9) 09/17/18 06:36 MCV 92 fl (79-97) 09/17/18 06:36 MCH 30 pg (28-32) 09/17/18 06:36 MCHC 33 % (30-34) 09/17/18 06:36 RDW 14.5 % (13.2-15.2) 09/17/18 06:36 Plt Count 309 K/mm3 (140-440) 09/17/18 06:36 Lymph % (Auto) 22.8 % (13.4-35.0) 09/17/18 06:36 [place] % (Auto) 7.6 % (0.0-7.3) H 09/17/18 06:36 Eos % (Auto) 9.1 % (0.0-4.3) H 09/17/18 06:36 Baso % (Auto) 0.7 % (0.0-1.8) 09/17/18 06:36 Lymph # 2.0 K/mm3 (1.2-5.4) 09/17/18 06:36 [place] # 0.7 K/mm3 (0.0-0.8) 09/17/18 06:36 Eos # 0.8 K/mm3 (0.0-0.4) H 09/17/18 06:36 Baso # 0.1 K/mm3 (0.0-0.1) 09/17/18 06:36 Seg Neutrophils % 59.8 % (40.0-70.0) 09/17/18 06:36 Seg Neutrophils # 5.2 K/mm3 (1.8-7.7) 09/17/18 06:36 Sodium 141 mmol/L (137-145) 09/17/18 06:36 Potassium 4.2 mmol/L (3.6-5.0) 09/17/18 06:36 Chloride 108.9 mmol/L (98-107) H 09/17/18 06:36 Carbon Dioxide 20 mmol/L (22-30) L 09/17/18 06:36 Anion Gap 16 mmol/L 09/17/18 06:36 BUN 7 mg/dL (7-17) 09/17/18 06:36 Creatinine 0.5 mg/dL (0.7-1.2) L 09/17/18 06:36 Estimated GFR > 60 ml/min 09/17/18 06:36 BUN/Creatinine Ratio 14 % 09/17/18 06:36 Glucose 87 mg/dL (65-100) 09/17/18 06:36 Lactic Acid 0.60 mmol/L (0.7-2.0) L 09/16/18 03:49 Calcium 7.8 mg/dL (8.4-10.2) L 09/17/18 06:36 Total Bilirubin 0.50 mg/dL (0.1-1.2) 09/16/18 01:11 AST 12 units/L (5-40) 09/16/18 01:11 ALT 10 units/L (7-56) 09/16/18 01:11 Alkaline Phosphatase 74 units/L (35-129) 09/16/18 01:11 Total Protein 5.8 g/dL (6.3-8.2) L 09/16/18 01:11 Albumin 2.8 g/dL (3.9-5) L 09/16/18 01:11 Albumin/Globulin Ratio 0.9 % 09/16/18 01:11 Lipase 8 units/L (13-60) L 09/16/18 01:11 Urine Color Yellow (Yellow) 09/15/18 Unknown Urine Turbidity Clear (Clear) 09/15/18 Unknown Urine pH 5.0 (5.0-7.0) 09/15/18 Unknown Ur Specific [place] 1.025 (1.003-1.030) 09/15/18 Unknown Urine Protein <15 mg/dl mg/dL (Negative) 09/15/18 Unknown Urine Glucose (UA) Neg mg/dL (Negative) 09/15/18 Unknown Urine Ketones Tr mg/dL (Negative) 09/15/18 Unknown Urine Blood Neg (Negative) 09/15/18 Unknown Urine Nitrite Neg (Negative) 09/15/18 Unknown Urine Bilirubin Neg (Negative) 09/15/18 Unknown Urine Urobilinogen < 2.0 mg/dL (<2.0) 09/15/18 Unknown Ur Leukocyte Esterase Sm (Negative) 09/15/18 Unknown Urine WBC (Auto) 13.0 /HPF (0.0-6.0) H 09/15/18 Unknown Urine RBC (Auto) 4.0 /HPF (0.0-6.0) 09/15/18 Unknown U Epithel Cells (Auto) 1.0 /HPF (0-13.0) 09/15/18 Unknown Calcium Oxalate Crystal 2+ 09/15/18 Unknown Urine Mucus 1+ /HPF 09/15/18 Unknown - Imaging and Cardiology CT scan - abdomen: image reviewed (inflamatory more than infectious, but cant rule out ischemic) Nutrition/Malnutrition Assess - Dietary Evaluation Nutrition/Malnutrition Findings: Nutrition Notes Start: 09/16/18 14:05 Freq: Status: Active Protocol: Document 09/16/18 14:05 NIK (Rec: 09/16/18 14:14 NIK [email or web address] [email or web address]) Nutrition Notes 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 Says she had been drinking Ensure at home because she was not tolerating solid foods. She is edentulous and requests soft foods (chopped meats). Her last PO meal was [address] scan revealed acute ( L) colitis vs. diverticulitis. 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 No Is Patient Ambulatory and/or Out of Bed Yes [facility] [ [id number] [id number]] Calculation Used for Recommendations [place] Jeor Additional Notes Pro needs 1-1.2g/k-75g/ day Fluid needs 1ml/kcal Nutrition Intervention Change Diet Order: Continue current diet; advance as tolerated Goal #1 PO tolerance Goal #2 Diet advancement to meet nutrient needs Anticipated Discharge Needs: Unable to identify at this time Follow-Up By: 09/18/18 Additional Comments F/U: diet advancement; ONS order (chocolate Ensure Enlive BID); add mech soft with chopped meats restrictions to diet order when advanced to solids
[2018-09-17] MEDS: FLAGYL 500 MG/100 ML 500 MG/100 ML BAG IV SCH ×2 (14:15→21:07)
--- NOTE | 2018-09-17 21:29 | Consultation ---
REFERRING PHYSICIAN: Heriberto Hill MD INDICATIONS: 1. Abdominal pain. 2. Colitis. HISTORY OF PRESENT ILLNESS: The patient is a 67-year-old female with history of COPD, coronary artery disease, and a lung mass, being evaluated. The patient reports 6 weeks now of worsening left lower quadrant abdominal pain. She reports decreased bowel movements. She denies any rectal bleeding. She reports some nausea and vomiting. She denies any weight loss or anemia. The patient subsequently came to the Emergency Room where a CT scan showed signs of colitis, and the patient was admitted and GI consulted. The patient reports her last colonoscopy was 2 years. She denies any other specific problems or complaints. PAST MEDICAL HISTORY: 1. COPD. 2. Coronary artery disease. 3. Hypertension. 4. High cholesterol. MEDICATIONS: Reviewed and updated in the chart. ALLERGIES: ERYTHROMYCIN AND PENICILLIN. SOCIAL HISTORY: Denies alcohol. Reports former smoker. FAMILY HISTORY: Negative for colon cancer, IBD, or liver disease. REVIEW OF SYSTEMS: GENERAL: Reports mild weakness. HEENT: No visual complaints or tinnitus. PULMONARY: No shortness of breath. CARDIOVASCULAR: No chest pain. GASTROINTESTINAL: Reports abdominal pain. All points of 13-point review of systems otherwise negative. PHYSICAL EXAMINATION: VITAL SIGNS: Temperature of 97.3, pulse 79, respirations 20, and blood pressure 100/50. GENERAL: Fairly nourished female, in no acute distress. HEENT: Pupils equal, round, and reactive. PULMONARY: Clear to auscultation bilaterally. CARDIOVASCULAR: Regular rate and rhythm. Normal S1 and S2. ABDOMEN: Positive bowel sounds, soft. SKIN: No obvious rashes. LABORATORY DATA: Laboratories pertinent for white count of 8.7, hemoglobin and hematocrit of 10.1 and 30.7, and platelet count 309. Chem-7 is within normal limits. LFTs are within normal limits. CT scan performed on 09/16/2018, showed signs of acute left-sided colitis versus diverticulitis. ASSESSMENT: A 67-year-old female, who presents with 6 weeks now of worsening left lower quadrant abdominal pain with CT scan showing colitis versus diverticulitis. Suspicion for ischemic colitis versus other. PLAN: 1. We will review a CT scan. 2. Antiemetics and pain medications per primary team. 3. Continue antibiotics with Levaquin and Flagyl as ordered. 4. Full-liquid diet and advance to soft in the morning. 5. If tolerating soft diet in the morning, then advance; okay to be discharged from GI standpoint. 6. We will follow. JOB# [id number] CAB/NTS
[2018-09-18] MEDS: DUONEB *Not for PRN Use IH SCH ×2 (01:05→14:19)
[2018-09-18] MEDS: ZOFRAN IV SCH ×2 (02:18→05:13)
[2018-09-18] MEDS: HEPARIN SUB-Q SCH (05:14)
[2018-09-18] MEDS: ZOFRAN ODT PO SCH (05:21)
[2018-09-18] MEDS: D5NS 1,000 ML IV SCH (05:22)
[2018-09-18] MEDS: NORCO 5/325 PO PRN (05:25)
[2018-09-18] MEDS: BROVANA NEBU IH SCH (07:56)
[2018-09-18] MEDS: PULMICORT IH SCH (07:56)
--- NOTE | 2018-09-18 09:23 | Discharge Summary ---
Providers - Providers Date of Admission: 09/16/18 04:41 Attending physician: DALE GERBER MD 09/16/18 11:00 Consult to Physician [CONS] Routine Comment: Consulting Provider: RANGEL MARTÍNEZ Physician Instructions: Reason For Exam: IBS 09/17/18 09:19 Physical Therapy Evaluation and Treat [CONS] Routine Comment: Reason For Exam: weakness Primary care physician: CARMELITA JO Hospitalization Reason for admission: abdominal pain Condition: Stable Hospital course: Patient is a 67 year old female with hx of COPD, Ex-smoker, non obstructive CAD as reviealed in cardiac cath 03/2018, GERD AND LUNG MASS currently undergoing work up outpatient, who presented to the ED with complaints of LLQ for 6 weeks S she informed of the ED physician. She reports that this was unemployed and is associated with intermittent nausea vomiting diarrhea.. Patient was recommended for admission on my examination the patient reveals that this has actually been going on for 3 weeks. She denies any fever. She reports intermittent diarrhea with constipation. She denies any history of nephrolithiasis. She this morning continues to complain of pain which she states since of 5/10 in intensity was located in the left mid to lower quadrant. She denies any bright red blood per rectum or melanotic stool. Patient started on abx, imaging studies concerning for colitis. Patient was seen by GI and restarted on diet and clinically stable for discharge at this time. Patient has to follow with GI outpatient for possible colonoscopy. She will continue to follow with her pain physician. CT with contrast yelids to more inflammatory findings but cannot rule out ischemic Discharge Plan Peritoneal Irritation Diverticulosis Internal Hemoorhoids Colitis- Presumed infectious Lung mass-undergoing outpatient work up SIRS with no organ dysfunction Acute cystitis- Pt complained to nurse of dysuria. POA COPD- stable Mobrid obesity- Counselling provided Leukocytosis-Resolved OAB- per Hx GERD Chronic pain syndrom Disposition: - TO HOME OR SELFCARE Time spent for discharge: 35 mins Core Measure Documentation - Palliative Care Palliative Care/ Comfort Measures: Not Applicable - Core Measures Any of the following diagnoses?: none Exam - Physical Exam Narrative exam: VITAL SIGNS: Reviewed. GENERAL: The patient appeared well nourished and normally developed. Obese. Vital signs as documented. HEAD: No signs of head trauma. EYES: Pupils are equal. Extraocular motions intact. EARS: Hearing grossly intact. MOUTH: Oropharynx is normal. NECK: No adenopathy, no JVD. CHEST: Chest with clear breath sounds bilaterally. No wheezes, rales, or rhonchi. CARDIAC: Regular rate and rhythm. S1 and S2, without murmurs, gallops, or rubs. VASCULAR: No Edema. Peripheral pulses normal and equal in all extremities. ABDOMEN: Soft,no guarding, no distension, NON TENDER. No rebound or guarding, and no masses palpated. Bowel Sounds normal. MUSCULOSKELETAL: Good range of motion of all major joints. Extremities without clubbing, cyanosis or edema. NEUROLOGIC EXAM: Alert and oriented x 3. No focal sensory or strength deficits. Speech normal. Follows commands. PSYCHIATRIC: Mood normal. SKIN: No rash or lesions. - Constitutional Vitals: Temp Pulse Resp BP Pulse Ox 98.5 F 75 17 128/48 93 09/18/18 07:24 09/18/18 07:57 09/18/18 07:57 09/18/18 07:24 09/18/18 07:24 Plan Activity: advance as tolerated, fall precautions Diet: low fat (GI soft), advance as tolerated Special Instructions: record daily weights, record daily BP diary Follow up with: CARMELITA JO MD [Primary Care Provider] - 3-5 Days ERICH MUHAMMAD MD [Staff Physician] - 7 Days Forms: Work/School Release Form Prescriptions: metroNIDAZOLE [Flagyl] 500 mg PO Q8HR #15 tablet levoFLOXacin [Levaquin TAB] 750 mg PO Q24HR #5 tablet
[2018-09-18] MEDS: LEVAQUIN 500MG/100ML 500 MG/100 ML BAG IV SCH (09:37)
[2018-09-18] MEDS: DITROPAN PO SCH (09:38)
[2018-09-18] MEDS: ULTRAM PO SCH (09:38)
[2018-09-18] MEDS: ZANAFLEX PO SCH (09:38)
[2018-09-18] MEDS: FLAGYL 500 MG/100 ML 500 MG/100 ML BAG IV SCH (09:38)
[2018-09-18] MEDS: NEURONTIN PO SCH (09:38)
[2018-09-18] MEDS: SODIUM CHLORIDE FLUSH SYRINGE 10 ML IV SCH (09:39)
[2018-09-18] MEDS: PEPCID IV SCH (09:39)
--- NOTE | 2018-09-18 10:47 | Gastroenterology Progress Note ---
Assessment and Plan 1.LLQ abd pain -afebrile -WBC 8.7-tended down -H/H WNL-no active signs of bleeding -abd CT showed diverticulitis vs colitis -colonoscopy in 2017 showed diverticulosis in sigmoid colon and internal hemorrhoids -clinically, patient is stable with abd pain improving. No N/V or diarrhea. Tolerating diet. -continue antibiotics (levaquin/Flagyl) x total of 10 days -continue supportive care -patient is okay to be d/c per GI standpoint on antibiotics with f/u in clinic in 2-3 weeks -will sign off, please call if needed Subjective Date of service: 09/18/18 Principal diagnosis: abdominal pain Interval history: Patient resting in bed this am w/o acute distress. Reports abd pain continuing to improve. No N/V or signs of bleeding. Tolerating diet. Objective - Constitutional Vitals: Temp Pulse Resp BP Pulse Ox 98.5 F 75 17 128/48 93 09/18/18 07:24 09/18/18 07:57 09/18/18 07:57 09/18/18 07:24 09/18/18 07:24 General appearance: no acute distress - Respiratory Respiratory: bilateral: CTA - Cardiovascular Rhythm: regular Heart Sounds: Present: S1 & S2 - Gastrointestinal General gastrointestinal: Present: soft, tender (slight TTP), non-distended, normal bowel sounds - Neurologic Neurological: alert and oriented x3 - Labs CBC & Chem 7: 09/17/18 06:36 09/17/18 06:36
[2018-09-18 15:44] VITALS: BP 92/46
== END 2018-09-18 16:01 | disposition home or self-care (01) | DRG 391 ==
LOC: ED 18:21 → 2B-ACE 09-16 04:41
PROVIDERS: ADMIT Internal Medicine; ATTEND Internal Medicine
DX: A09 Infectious gastroenteritis and colitis, unspecified (principal); K65.9 Peritonitis, unspecified; R65.10 Systemic inflammatory response syndrome (SIRS) of non-infectious origin without acute organ dysfunction; N30.00 Acute cystitis without hematuria; J44.9 Chronic obstructive pulmonary disease, unspecified; I25.10 Atherosclerotic heart disease of native coronary artery without angina pectoris; R91.8 Other nonspecific abnormal finding of lung field; E78.00 Pure hypercholesterolemia, unspecified; G89.4 Chronic pain syndrome; K57.30 Diverticulosis of large intestine without perforation or abscess without bleeding; K21.9 Gastro-esophageal reflux disease without esophagitis; K64.8 Other hemorrhoids; E66.01 Morbid (severe) obesity due to excess calories; K59.00 Constipation, unspecified; I10 Essential (primary) hypertension; Z79.51 Long term (current) use of inhaled steroids; Z79.899 Other long term (current) drug therapy; Z87.891 Personal history of nicotine dependence; Z68.26 Body mass index [BMI] 26.0-26.9, adult; Z88.0 Allergy status to penicillin; Z88.1 Allergy status to other antibiotic agents; Z98.42 Cataract extraction status, left eye; Z98.41 Cataract extraction status, right eye; Z71.3 Dietary counseling and surveillance
CPT/HCPCS: 36415; 74018; 74176; 74177; 80048; 80053; 81001; 82140; 83690; 85025; 94640; G0378; J1644; J1956; J2270; J2405; J7030; J7040; J7042; Q0162; Q9967

== ENCOUNTER 2018-09-22 11:37 | Emergency (ER) | payer MEDICARE ==
[2018-09-22 12:35] LABS: Basophils # (Auto) 0.1 K/mm3 (0.0-0.1); Basophils % (Auto) 0.9 % (0.0-1.8); Eosinophils # (Auto) 0.6 K/mm3 (0.0-0.4); Eosinophils % (Auto) 6.1 % (0.0-4.3); Hematocrit 34.8 % (30.3-42.9); Lymphocytes # (Auto) 1.5 K/mm3 (1.2-5.4); Lymphocytes % (Auto) 16.4 % (13.4-35.0); Mean Corpuscular HGB Conc 35 % (30-34); Mean Corpuscular Volume 88 fl (79-97); Monocytes # (Auto) 0.7 K/mm3 (0.0-0.8); Monocytes % (Auto) 7.3 % (0.0-7.3); Platelet Count 373 K/mm3 (140-440); Red Blood Count 3.93 M/mm3 (3.65-5.03); Red Cell Distribution Width 14.4 % (13.2-15.2)
[2018-09-22 12:43] LABS: Alanine Aminotransferase 10 units/L (7-56); Albumin 2.8 g/dL (3.9-5); BUN/Creatinine Ratio 18; Blood Urea Nitrogen 9 mg/dL (7-17); Calcium 8.3 mg/dL (8.4-10.2); Hemolysis Index 10
[2018-09-22] MEDS ORDERED: NACL 0.9% 1000 ML 1,000 ML IV ONE (12:44)
[2018-09-22] MEDS ORDERED: ZOFRAN IV ONE ×2 (12:44→17:41)
[2018-09-22] MEDS ORDERED: DILAUDID IV ONE ×2 (12:44→17:41)
--- NOTE | 2018-09-22 12:49 | Emergency Department Report ---
ED Abdominal Pain HPI - General Chief Complaint: Abdominal Pain Stated Complaint: NAUSEA/ABD PAIN Time Seen by Provider: 09/22/18 12:16 Source: patient, old records reviewed Mode of arrival: Ambulatory Limitations: No Limitations - History of Present Illness Initial Comments: 67-year-old female with a past medical history of running pain secondary to ar thritis, asthma, hypertension, and COPD presents to the Hospital of complaints of continued abdominal pain since discharge from September 18. Patient was recently admitted here 09/16/[address] abdomen and pelvis concerning for colitis versus diverticulitis. Pt also diagnosed with uti. Patient received GI consultation and was discharged on Levaquin and flagyl. Pt taking Emelle for pain as prescribed by her orthopedic doctor. Pt continues to have constant cramping lower abd pain rated 8/10 in intensity, worse with movement and palpation. She has decreased po intake due to nausea and decreased appetite. She is tolerating liquids. No BM since d/c, no fever or dysuria. She denies previous abd surgeries. Patient did take her antibiotics this morning. PMD Dr Reich. Severity scale (0 -10): 8 - Related Data Home Medications Medication Instructions Recorded Confirmed Last Taken Albuterol Sulfate [Ventolin HFA] 1 puff IH Q4H PRN 03/17/18 09/18/18 Unknown Diclofenac [Ginger Reina] 75 mg PO BID 03/17/18 09/18/18 2 Days Ago ~03/15/18 Fluticasone/Salmeterol [Advair 1 puff IH Q12H 03/17/18 09/18/18 2 Days Ago 250-50 Diskus] ~03/15/18 Gabapentin [Neurontin] 300 mg PO BID 03/17/18 09/18/18 2 Days Ago ~03/15/18 Ipratropium/Albuterol Sulfate 0.5 mg IH Q6H 03/17/18 09/18/18 2 Days Ago [DUONEB *Not for PRN Use*] ~03/15/18 Ondansetron [Zofran ODT TAB] 8 mg PO Q8HR 03/17/18 09/18/18 2 Days Ago ~03/15/18 Oxybutynin [Ditropan] 5 mg PO BID 03/17/18 09/18/18 2 Days Ago ~03/15/18 Ranitidine HCl [Zantac] 300 mg PO DAILY 03/17/18 09/18/18 2 Days Ago ~03/15/18 tiZANidine [Zanaflex] 4 mg PO DAILY 03/17/18 09/18/18 2 Days Ago ~03/15/18 traMADol [Ultram 50 MG tab] 50 mg PO BID 03/17/18 09/18/18 2 Days Ago ~03/15/18 Previous Rx's Medication Instructions Recorded Last Taken Type HYDROcodone/APAP 5-325 [Emelle 1 each PO Q6HR PRN #14 tablet 04/02/18 Unknown Rx 5-325 mg TAB] Ondansetron [Zofran ODT TAB] 4 mg PO Q8HR PRN #14 tab.rapdis 04/02/18 Unknown Rx levoFLOXacin [Levaquin TAB] 750 mg PO Q24HR #7 tablet 09/22/18 Unknown Rx metroNIDAZOLE [Flagyl TAB] 500 mg PO Q8HR #21 tablet 09/22/18 Unknown Rx oxyCODONE /ACETAMINOPHEN [Percocet 1 tab PO Q6HR PRN #12 tablet 09/22/18 Unknown Rx 5/325] Allergies Allergy/AdvReac Type Severity Reaction Status Date / Time erythromycin base Allergy Rash Verified 09/22/18 11:48 [Erythromycin Base] Penicillins Allergy Shortness Verified 09/22/18 11:48 of Breath ED Review of Systems ROS: Stated complaint: NAUSEA/ABD PAIN Other details as noted in HPI Comment: All other systems reviewed and negative ED Past Medical Hx - Past Medical History Hx Hypertension: Yes Hx Heart Attack/AMI: No Hx Congestive Heart Failure: No Hx Deep Vein Thrombosis: No Hx Pulmonary Embolism: No Hx Arthritis: Yes Hx Asthma: Yes Hx COPD: Yes Hx Tuberculosis: No Hx HIV: No Additional medical history: angina. lung mass. chronic pain - Surgical History Hx Coronary Stent: No Hx Pacemaker: No Hx Internal Defibrillator: No Additional Surgical History: [place] cataract surgery - Social History Smoking Status: Never Smoker Substance Use Type: None - Medications Home Medications: Home Medications Medication Instructions Recorded Confirmed Last Taken Type Albuterol Sulfate [Ventolin HFA] 1 puff IH Q4H PRN 03/17/18 09/18/18 Unknown His tory Phyllis Reina [Ginger Reina] 75 mg PO BID 03/17/18 09/18/18 2 Days Ago History ~03/15/18 Fluticasone/Salmeterol [Advair 1 puff IH Q12H 03/17/18 09/18/18 2 Days Ago History 250-50 Diskus] ~03/15/18 Gabapentin [Neurontin] 300 mg PO BID 03/17/18 09/18/18 2 Days Ago History ~03/15/18 Ipratropium/Albuterol Sulfate 0.5 mg IH Q6H 03/17/18 09/18/18 2 Days Ago History [DUONEB *Not for PRN Use*] ~03/15/18 Ondansetron [Zofran ODT TAB] 8 mg PO Q8HR 03/17/18 09/18/18 2 Days Ago History ~03/15/18 Oxybutynin [Ditropan] 5 mg PO BID 03/17/18 09/18/18 2 Days Ago History ~03/15/18 Ranitidine HCl [Zantac] 300 mg PO DAILY 03/17/18 09/18/18 2 Days Ago History ~03/15/18 tiZANidine [Zanaflex] 4 mg PO DAILY 03/17/18 09/18/18 2 Days Ago History ~03/15/18 traMADol [Ultram 50 MG tab] 50 mg PO BID 03/17/18 09/18/18 2 Days Ago History ~03/15/18 HYDROcodone/APAP 5-325 [Emelle 1 each PO Q6HR PRN #14 tablet 04/02/18 09/18/18 Unknown Rx 5-325 mg TAB] Ondansetron [Zofran ODT TAB] 4 mg PO Q8HR PRN #14 tab.rapdis 04/02/18 09/18/18 Unknown Rx levoFLOXacin [Levaquin TAB] 750 mg PO Q24HR #7 tablet 09/22/18 Unknown Rx metroNIDAZOLE [Flagyl TAB] 500 mg PO Q8HR #21 tablet 09/22/18 Unknown Rx oxyCODONE /ACETAMINOPHEN [Percocet 1 tab PO Q6HR PRN #12 tablet 09/22/18 Unknown Rx 5/325] ED Physical Exam - General Limitations: No Limitations - Other Other exam information: General: No limitations, patient is alert in no acute distress Head exam: Atraumatic, normocephalic Eyes exam: Normal appearance ENT: Moist mucous membrane Neck exam: Normal inspection, full range of motion, no meningismus nontender Respiratory exam: Clear to auscultation bilateral, no wheezes, rales, crackles Cardiovascular: Normal rate and rhythm, normal heart sounds Abdomen: Soft, nondistended, and left upper quadrants and left lower quadrant area of maximum tenderness, with normal bowel sounds, no rebound, or guarding Extremity: Full range of motion normal inspection no deformity Back: Normal Inspection, full range of motion, no tenderness Neurologic: Alert, oriented x3, cranial nerves intact, no motor or sensory deficit Psychiatric: normal affect, normal mood Skin: Warm, dry, intact ED Course Vital Signs 09/22/18 11:48 Temperature 97.7 F Pulse Rate 90 Respiratory 20 Rate Blood Pressure 130/65 O2 Sat by Pulse 98 Oximetry - Consultations Consultation #1: 09/22/18 17:[address] Aquino assembly lead person for GI. Recommend extending antibiotics and follow-up. ED Medical Decision Making - Lab Data Result diagrams: 09/22/18 12:07 09/22/18 12:07 Lab Results 09/22/18 09/22/18 09/22/18 Range/Units 12:07 12:07 12:32 WBC 9.3 (4.5-11.0) K/mm3 RBC 3.93 (3.65-5.03) M/mm3 Hgb 12.0 (10.1-14.3) gm/dl Hct 34.8 (30.3-42.9) % MCV 88 (79-97) fl MCH 31 (28-32) pg MCHC 35 H (30-34) % RDW 14.4 (13.2-15.2) % Plt Count 373 (140-440) K/mm3 Lymph % (Auto) 16.4 (13.4-35.0) % [place] % (Auto) 7.3 (0.0-7.3) % Eos % (Auto) 6.1 H (0.0-4.3) % Baso % (Auto) 0.9 (0.0-1.8) % Lymph # 1.5 (1.2-5.4) K/mm3 [place] # 0.7 (0.0-0.8) K/mm3 Eos # 0.6 H (0.0-0.4) K/mm3 Baso # 0.1 (0.0-0.1) K/mm3 Seg Neutrophils % 69.3 (40.0-70.0) % Seg Neutrophils # 6.5 (1.8-7.7) K/mm3 VBG pH (7.320-7.420) Sodium 142 (137-145) mmol/L Potassium 3.9 (3.6-5.0) mmol/L Chloride 105.4 (98-107) mmol/L Carbon Dioxide 24 (22-30) mmol/L Anion Gap 17 mmol/L BUN 9 (7-17) mg/dL Creatinine 0.5 L (0.7-1.2) mg/dL Estimated GFR > 60 ml/min BUN/Creatinine Ratio 18 % Glucose 84 (65-100) mg/dL Lactic Acid (0.7-2.0) mmol/L Calcium 8.3 L (8.4-10.2) mg/dL Total Bilirubin 0.30 (0.1-1.2) mg/dL AST 13 (5-40) units/L ALT 10 (7-56) units/L Alkaline Phosphatase 72 (35-129) units/L Total Protein 5.7 L (6.3-8.2) g/dL Albumin 2.8 L (3.9-5) g/dL Albumin/Globulin Ratio 1.0 % Lipase 6 L (13-60) units/L Urine Color (Yellow) Urine Turbidity (Clear) Urine pH (5.0-7.0) Ur Specific [place] (1.003-1.030) Urine Protein (Negative) mg/dL Urine Glucose (UA) (Negative) mg/dL Urine Ketones (Negative) mg/dL Urine Blood (Negative) Urine Nitrite (Negative) Urine Bilirubin (Negative) Urine Urobilinogen (<2.0) mg/dL Ur Leukocyte Esterase (Negative) Urine WBC (Auto) (0.0-6.0) /HPF Urine RBC (Auto) (0.0-6.0) /HPF U Epithel Cells (Auto) (0-13.0) /HPF Urine Mucus /HPF 09/22/18 09/22/18 09/22/18 Range/Units 12:32 12:32 13:25 WBC (4.5-11.0) K/mm3 RBC (3.65-5.03) M/mm3 Hgb (10.1-14.3) gm/dl Hct (30.3-42.9) % MCV (79-97) fl MCH (28-32) pg MCHC (30-34) % RDW (13.2-15.2) % Plt Count (140-440) K/mm3 Lymph % (Auto) (13.4-35.0) % [place] % (Auto) (0.0-7.3) % Eos % (Auto) (0.0-4.3) % Baso % (Auto) (0.0-1.8) % Lymph # (1.2-5.4) K/mm3 [place] # (0.0-0.8) K/mm3 Eos # (0.0-0.4) K/mm3 Baso # (0.0-0.1) K/mm3 Seg Neutrophils % (40.0-70.0) % Seg Neutrophils # (1.8-7.7) K/mm3 VBG pH 7.432 H (7.320-7.420) Sodium (137-145) mmol/L Potassium (3.6-5.0) mmol/L Chloride (98-107) mmol/L Carbon Dioxide (22-30) mmol/L Anion Gap mmol/L BUN (7-17) mg/dL Creatinine (0.7-1.2) mg/dL Estimated GFR ml/min BUN/Creatinine Ratio % Glucose (65-100) mg/dL Lactic Acid 0.80 (0.7-2.0) mmol/L Calcium (8.4-10.2) mg/dL Total Bilirubin (0.1-1.2) mg/dL AST (5-40) units/L ALT (7-56) units/L Alkaline Phosphatase (35-129) units/L Total Protein (6.3-8.2) g/dL Albumin (3.9-5) g/dL Albumin/Globulin Ratio % Lipase (13-60) units/L Urine Color Yellow (Yellow) Urine Turbidity Clear (Clear) Urine pH 7.0 (5.0-7.0) Ur Specific [place] 1.015 (1.003-1.030) Urine Protein <15 mg/dl (Negative) mg/dL Urine Glucose (UA) Neg (Negative) mg/dL Urine Ketones 20 (Negative) mg/dL Urine Blood Neg (Negative) Urine Nitrite Neg (Negative) Urine Bilirubin Neg (Negative) Urine Urobilinogen < 2.0 (<2.0) mg/dL Ur Leukocyte Esterase Tr (Negative) Urine WBC (Auto) 12.0 H (0.0-6.0) /HPF Urine RBC (Auto) 5.0 (0.0-6.0) /HPF U Epithel Cells (Auto) < 1.0 (0-13.0) /HPF Urine Mucus Few /HPF - Radiology Data Radiology results: report reviewed PROCEDURE: CT ABDOMEN PELVIS W CON TECHNIQUE: CT examination of the abdomen after IV contrast CT examination of the pelvis after IV contrast HISTORY: llq pain, recent colitis/divertulitis COMPARISONS: 09/16/2018 FINDINGS: Lung bases without acute finding. Degenerative change in the regional skeleton. No acute fracture. Normal-appearing liver, gallbladder, adrenals, pancreas, and spleen. Intact normal caliber abdominal aorta with moderate calcified and noncalcified atherosclerotic plaque. Normal caliber IVC. Normal- appearing kidneys and visible ureteral segments. Intact abdominal wall without evidence hernia. No retroperitoneal adenopathy. No evidence of mesenteric mass. Normal-appearing stomach and duodenum. No small bowel distention in the abdomen and pelvis. No evidence of intestinal obstruction. No pelvic free fluid. Normal-appearing urinary bladder and rectum. IUD again noted in central uterus. No adnexal abnormality. Slight diverticulosis in descending colon and moderate diverticulosis in sigmoid colon. Again noted is nonspecific mural thickening in the descending and sigmoid colon with adjacent fat stranding suggestive of inflammation. Again noted is slight free fluid in the adjacent left paracolic gutter. Degree and extent of inflammatory change appears relatively unchanged extending from the proximal descending colon to the distal sigmoid colon. The greatest adjacent fat stranding and free fluid is again present in the mid to distal descending colon region. Findings are again most compatible with diverticulitis but differential again includes nonspecific colitis, ischemia, and/or inflammatory bowel disease. No gross ascites, free air, or colonic distention. Oral contrast reaches the rectum. Normal- appearing cecum and terminal ileum. Normal-appearing appendix. IMPRESSION: Relatively unchanged abnormality in the descending and sigmoid colon most compatible with diverticulitis. Differential again includes nonspecific colitis, ischemia, and/or inflammatory bowel disease IUD again noted in the uterus - Medical Decision Making CT performed with by mouth and IV contrast and no acute changes. No signs of sepsis or septic shock. Persisted urine WBC count increased. Patient instructed to continue her medication will extend her treatment for an additional week. Patient takes Emelle twice a day for chronic pain. We'll provide Percocet 10 tabs when necessary. Patient is aware that she has a retained IUD and states it has artery attempts to uterine wall and hysterectomy has been recommended. - Differential Diagnosis UTI, colitis, constipation, diverticulitis, cystitis, abscess, perforation Critical Care Time: No Critical care attestation.: If time is entered above; I have spent that time in minutes in the direct care of this critically ill patient, excluding procedure time. ED Disposition Clinical Impression: Diverticulitis, UTI (urinary tract infection), Abdominal pain Disposition: TO HOME OR SELFCARE Is pt being admited?: No Does the pt Need Aspirin: No Condition: Stable Instructions: Diverticulitis (ED), Urinary Tract Infection in Women (ED) Additional Instructions: Take the medication as prescribed. Follow up with your doctor or the clinic/doctor provided. Return if symptoms worsen as indicated by your discharge instructions Prescriptions: metroNIDAZOLE [Flagyl TAB] 500 mg PO Q8HR #21 tablet levoFLOXacin [Levaquin TAB] 750 mg PO Q24HR #7 tablet oxyCODONE /ACETAMINOPHEN [Percocet 5/325] 1 tab PO Q6HR PRN #12 tablet PRN Reason: Pain Referrals: CARMELITA JO MD [Primary Care Provider] - 3-5 Days JKAI KAT MD [Staff Physician] - 3-5 Days (Gi doctor) Time of Disposition: 17:59
[2018-09-22 13:58] LABS: Bilirubin,Urine NEG (Negative); Blood,Urine NEG (Negative); Color,Urine Yellow (Yellow); Mucus,Urine FEW /HPF; Protein,Urine <15 mg/dL mg/dL (Negative); Urobilinogen,Urine < 2.0 mg/dL (<2.0)
--- NOTE | 2018-09-22 16:07 | Cat Scan Report ---
PROCEDURE: CT ABDOMEN PELVIS W CON TECHNIQUE: CT examination of the abdomen after IV contrast CT examination of the pelvis after IV contrast HISTORY: llq pain, recent colitis/divertulitis COMPARISONS: 09/16/2018 FINDINGS: Lung bases without acute finding. Degenerative change in the regional skeleton. No acute fracture. No rmal-appearing liver, gallbladder, adrenals, pancreas, and spleen. Intact normal caliber abdominal ao rta with moderate calcified and noncalcified atherosclerotic plaque. Normal caliber IVC. Normal-appea ring kidneys and visible ureteral segments. Intact abdominal wall without evidence hernia. No retrope ritoneal adenopathy. No evidence of mesenteric mass. Normal-appearing stomach and duodenum. No small bowel distention in the abdomen and pelvis. No evidence of intestinal obstruction. No pelvic free fluid. Normal-appearing urinary bladder and rectum. IUD again noted in central uterus. No adnexal abnormality. Slight diverticulosis in descending colon and moderate diverticulosis in sigmoid colon. Again noted i s nonspecific mural thickening in the descending and sigmoid colon with adjacent fat stranding sugges tive of inflammation. Again noted is slight free fluid in the adjacent left paracolic gutter. Degree and extent of inflammatory change appears relatively unchanged extending from the proximal descending colon to the distal sigmoid colon. The greatest adjacent fat stranding and free fluid is again prese nt in the mid to distal descending colon region. Findings are again most compatible with diverticulit is but differential again includes nonspecific colitis, ischemia, and/or inflammatory bowel disease. No gross ascites, free air, or colonic distention. Oral contrast reaches the rectum. Normal-appearing cecum and terminal ileum. Normal-appearing appendix. IMPRESSION: Relatively unchanged abnormality in the descending and sigmoid colon most compatible with diverticuli tis. Differential again includes nonspecific colitis, ischemia, and/or inflammatory bowel disease IUD again noted in the uterus This document is electronically signed by Parth Stuart MD., September 22 2018 04:04:18 PM ET
[2018-09-22] MEDS ORDERED: FLAGYL PO ONE (17:41)
[2018-09-22 18:33] VITALS: BP 148/67
== END 2018-09-22 18:34 | disposition home or self-care (01) ==
LOC: ED 11:37
DX: K57.92 Diverticulitis of intestine, part unspecified, without perforation or abscess without bleeding (principal); N39.0 Urinary tract infection, site not specified; I10 Essential (primary) hypertension; J44.9 Chronic obstructive pulmonary disease, unspecified; I20.9 Angina pectoris, unspecified; M19.90 Unspecified osteoarthritis, unspecified site; Z88.0 Allergy status to penicillin; Z88.1 Allergy status to other antibiotic agents
CPT/HCPCS: 36415; 74177; 80053; 81001; 82140; 82805; 83690; 85025; 87086; 96374; 96375; 96376; 99284; J1170; J2405; J7030; Q9963; Q9967

== ENCOUNTER 2019-02-02 07:42 | Emergency (ER) | payer MEDICARE ==
[2019-02-02] MEDS ORDERED: MORPHINE IV ONE ×2 (08:24→10:39)
[2019-02-02 08:36] LABS: Hematocrit 32.2 % (30.3-42.9); Hemoglobin 10.8 gm/dl (10.1-14.3); Mean Corpuscular HGB Conc 34 % (30-34); Mean Corpuscular Volume 89 fl (79-97); Platelet Count 487 K/mm3 (140-440); Red Cell Distribution Width 13.2 % (13.2-15.2)
--- NOTE | 2019-02-02 08:46 | Emergency Department Report ---
ED Chest Pain HPI - General Chief Complaint: Dyspnea/Respdistress Stated Complaint: (R) SIDE PAIN/ALLI Time Seen by Provider: 02/02/19 08:13 Source: patient, EMS Mode of arrival: Stretcher Limitations: Physical Limitation - History of Present Illness Initial Comments: 68-year-old female with history of lung cancer, COPD presents to the ED with complaint of right sided chest pain. Patient recently underwent right upper lung lobectomy 10 days ago at [facility]. Patient states pain is improved since her surgery, became worse this morning. Patient reports she has a prescription for hydrocodone. Patient is chronically on 3 L O2. Patient denies cough, reports subjective fever. Patient not currently undergoing chemo or radiation therapy. CT Surgeon: Dr Edinson Pride MD Complaint: chest pain -: This morning Onset: during rest Pain Location: right chest Pain Radiation: none Severity: severe Severity scale (0 -10): 10 Quality: sharp Consistency: constant Improves With: nothing Worsens With: inspiration Context: recent surgery re: dyspnea. denies: nausea, vomting, diaphoresis Other Symptoms: fever. denies: cough - Related Data Home Medications Medication Instructions Recorded Confirmed Last Taken Albuterol Sulfate [Ventolin HFA] 1 puff IH Q4H PRN 03/17/18 09/18/18 Unknown Diclofenac [Ginger Reina] 75 mg PO BID 03/17/18 09/18/18 2 Days Ago ~03/15/18 Fluticasone/Salmeterol (Nf) 1 puff IH Q12H 03/17/18 09/18/18 2 Days Ago [Advair 250-50 Diskus (Nf)] ~03/15/18 Gabapentin [Neurontin] 300 mg PO BID 03/17/18 09/18/18 2 Days Ago ~03/15/18 Ipratropium/Albuterol Sulfate 0.5 mg IH Q6H 03/17/18 09/18/18 2 Days Ago [DUONEB *Not for PRN Use*] ~03/15/18 Ondansetron [Zofran ODT TAB] 8 mg PO Q8HR 03/17/18 09/18/18 2 Days Ago ~03/15/18 Oxybutynin [Ditropan] 5 mg PO BID 03/17/18 09/18/18 2 Days Ago ~03/15/18 Ranitidine HCl [Zantac] 300 mg PO DAILY 03/17/18 09/18/18 2 Days Ago ~03/15/18 tiZANidine [Zanaflex 4mg TAB] 4 mg PO DAILY 03/17/18 09/18/18 2 Days Ago ~03/15/18 traMADol [Ultram 50 MG tab] 50 mg PO BID 03/17/18 09/18/18 2 Days Ago ~03/15/18 Previous Rx's Medication Instructions Recorded Last Taken Type HYDROcodone/APAP 5-325 [[place] 1 each PO Q6HR PRN #14 tablet 04/02/18 Unknown Rx 5-325 mg TAB] Ondansetron [Zofran ODT TAB] 4 mg PO Q8HR PRN #14 tab.rapdis 04/02/18 Unknown Rx levoFLOXacin [Levaquin TAB] 750 mg PO Q24HR #7 tablet 09/22/18 Unknown Rx metroNIDAZOLE [Flagyl TAB] 500 mg PO Q8HR #21 tablet 09/22/18 Unknown Rx oxyCODONE /ACETAMINOPHEN [Percocet 1 tab PO Q6HR PRN #12 tablet 09/22/18 Unknown Rx 5/325] Allergies Allergy/AdvReac Type Severity Reaction Status Date / Time erythromycin base Allergy Rash Verified 09/22/18 11:48 [Erythromycin Base] Penicillins Allergy Shortness Verified 09/22/18 11:48 of Breath Heart Score - HEART Score History: Slightly suspicious EKG: Normal Age: > 65 Risk factors: 1-2 risk factors Troponin: < normal limit HEART Score: 3 ED Review of Systems ROS: Stated complaint: (R) SIDE PAIN/ALLI Other details as noted in HPI Comment: All other systems reviewed and negative Constitutional: fever Respiratory: shortness of breath Cardiovascular: chest pain ED Past Medical Hx - Past Medical History Previous Medical History?: Yes Hx Hypertension: Yes Hx Heart Attack/AMI: No Hx Congestive Heart Failure: No Hx Deep Vein Thrombosis: No Hx Pulmonary Embolism: No Hx Arthritis: Yes Hx Asthma: Yes Hx COPD: Yes Hx Tuberculosis: No Hx HIV: No Additional medical history: angina. lung CA. chronic pain - Surgical History Past Surgical History?: Yes Hx Coronary Stent: No Hx Pacemaker: No Hx Internal Defibrillator: No Additional Surgical History: [place] cataract surgery. right lobectomy - Social History Smoking Status: Former Smoker Substance Use Type: None - Medications Home Medications: Home Medications Medication Instructions Recorded Confirmed Last Taken Type Albuterol Sulfate [Ventolin HFA] 1 puff IH Q4H PRN 03/17/18 09/18/18 Unknown History Diclofenac [Ginger Reina] 75 mg PO BID 03/17/18 09/18/18 2 Days Ago History ~03/15/18 Fluticasone/Salmeterol (Nf) 1 puff IH Q12H 03/17/18 09/18/18 2 Days Ago History [Advair 250-50 Diskus (Nf)] ~03/15/18 Gabapentin [Neurontin] 300 mg PO BID 03/17/18 09/18/18 2 Days Ago History ~03/15/18 Ipratropium/Albuterol Sulfate 0.5 mg IH Q6H 03/17/18 09/18/18 2 Days Ago History [DUONEB *Not for PRN Use*] ~03/15/18 Ondansetron [Zofran ODT TAB] 8 mg PO Q8HR 03/17/18 09/18/18 2 Days Ago History ~03/15/18 Oxybutynin [Ditropan] 5 mg PO BID 03/17/18 09/18/18 2 Days Ago History ~03/15/18 Ranitidine HCl [Zantac] 300 mg PO DAILY 03/17/18 09/18/18 2 Days Ago History ~03/15/18 tiZANidine [Zanaflex 4mg TAB] 4 mg PO DAILY 03/17/18 09/18/18 2 Days Ago History ~03/15/18 traMADol [Ultram 50 MG tab] 50 mg PO BID 03/17/18 09/18/18 2 Days Ago History ~03/15/18 HYDROcodone/APAP 5-325 [[place] 1 each PO Q6HR PRN #14 tablet 04/02/18 09/18/18 Unknown Rx 5-325 mg TAB] Ondansetron [Zofran ODT TAB] 4 mg PO Q8HR PRN #14 tab.rapdis 04/02/18 09/18/18 Unknown Rx levoFLOXacin [Levaquin TAB] 750 mg PO Q24HR #7 tablet 09/22/18 Unknown Rx metroNIDAZOLE [Flagyl TAB] 500 mg PO Q8HR #21 tablet 09/22/18 Unknown Rx oxyCODONE /ACETAMINOPHEN [Percocet 1 tab PO Q6HR PRN #12 tablet 09/22/18 Unknown Rx 5/325] ED Physical Exam - General Limitations: Physical Limitation General appearance: alert, in no apparent distress - Head Head exam: Present: atraumatic, normocephalic - Eye Eye exam: Present: normal appearance - ENT ENT exam: Present: mucous membranes moist - Neck Neck exam: Present: normal inspection - Respiratory Respiratory exam: Present: rales, other (splinting present) - Cardiovascular Cardiovascular Exam: Present: regular rate, normal rhythm - GI/Abdominal GI/Abdominal exam: Present: soft. Absent: distended, tenderness - Extremities Exam Extremities exam: Present: normal inspection - Neurological Exam Neurological exam: Present: alert, oriented X3 - Psychiatric Psychiatric exam: Present: normal affect, normal mood - Skin Skin exam: Present: warm, dry, intact, normal color ED Course Vital Signs 02/02/19 02/02/19 02/02/19 07:52 07:57 08:00 Temperature 97.9 F Pulse Rate 83 84 Respiratory 22 26 H Rate Blood Pressure 116/62 130/64 O2 Sat by Pulse 99 100 100 Oximetry 02/02/19 02/02/19 02/02/19 08:30 08:35 09:00 Temperature Pulse Rate 83 83 Respiratory 22 28 H 20 Rate Blood Pressure 111/53 120/54 O2 Sat by Pulse 100 100 Oximetry 02/02/19 02/02/19 02/02/19 09:30 10:00 10:30 Temperature Pulse Rate 81 75 84 Respiratory 20 18 16 Rate Blood Pressure 114/61 102/45 129/53 O2 Sat by Pulse 100 100 100 Oximetry 02/02/19 02/02/19 02/02/19 10:51 11:07 11:30 Temperature Pulse Rate 91 H 84 Respiratory 22 26 H 20 Rate Blood Pressure 129/53 108/53 O2 Sat by Pulse 100 Oximetry 02/02/19 12:00 Temperature Pulse Rate 87 Respiratory 23 Rate Blood Pressure 124/61 O2 Sat by Pulse 100 Oximetry - Consultations Consultation #1: 02/02/19 11:45 [facility] transfer line contacted 02/02/19 12:03 Spoke w/ KATHERINE Narayan, char conveyor tender cellar for Dr Pride. CT results relayed, states sounds like postoperative changes. Would not place on antibiotics since no fever, no elevated WBC. Wants pt to f/u in office on Tuesday. Will give copy of disc to take to appt. ED Medical Decision Making - Lab Data Result diagrams: 02/02/19 08:15 02/02/19 08:15 - Radiology Data Radiology results: report reviewed, image reviewed - Medical Decision Making 78-year-old female with history of lung cancer, status post right upper lobectomy 10 days ago. The patient presents with pain in the area of her isaac rgery, right upper chest. Patient has been having pain since the surgery, states it has not improved, however worsened this morning. Patient is chronically on 3 L of O2, O2 sats normal on 3L. patient does not appear to be in any respiratory distress, remainder of vitals are normal including temperature. Chest x-ray and CTA Chest show changes most consistent with postoperative findings. No PE present. Spoke w/ on-call PA for pt's surgeon. Wants pt to f/u on Tuesday in office. Pt currently taking norco at home for pain. Will d/c at this time. Return precautions given. - Differential Diagnosis PE, pneumonia, post-op pain Critical care attestation.: If time is entered above; I have spent that time in minutes in the direct care of this critically ill patient, excluding procedure time. ED Disposition Clinical Impression: Atypical chest pain, Postoperative pain Disposition: -01 TO HOME OR SELFCARE Is pt being admited?: No Condition: Stable Instructions: Pleurisy (ED) Additional Instructions: Please call today to make an appointment for TuesdayFebruary [address] Pride. Time of Disposition: 12:08
[2019-02-02 08:49] LABS: BUN/Creatinine Ratio 20; Blood Urea Nitrogen 8 mg/dL (7-17); Calcium 9.4 mg/dL (8.4-10.2); Hemolysis Index 6
--- NOTE | 2019-02-02 09:35 | XRay Report ---
CHEST 1 VIEW INDICATION / CLINICAL INFORMATION: recent right upper lobectomy. COMPARISON: None available. FINDINGS: SUPPORT DEVICES: None. HEART / MEDIASTINUM: No significant abnormality. LUNGS / PLEURA: Postsurgical changes are seen in the right upper lobe. There is homogeneous opacity in the right upper lung with a small right apical hydropneumothorax. ADDITIONAL FINDINGS: No significant additional findings. IMPRESSION: 1. Postoperative changes in the right upper hemithorax with small right apical hydropneumothorax. Signer Name: Lit Fair MD Signed: 02/02/2019 9:30 AM Workstation Name: [id number]
--- NOTE | 2019-02-02 11:22 | Cat Scan Report ---
CTA CHEST WITH IV CONTRAST INDICATION: right chest pain, shortness of breath, 10 days postop right partial pneumonectomy, histor y of lung cancer CONTRAST: 100 cc Omnipaque 350 IV COMPARISON: CT chest 06/25/2018 Three-plane MIP reconstructions were produced. All CT scans at this location are performed using CT d ose reduction for ALARA by means of automated exposure control. FINDINGS: No significant focal bony lesion is seen. No significant axillary lesions are seen. In the deep subcutaneous tissues of the upper right breast area centrally and medially, there is a moderate area of mottled subcutaneous emphysema. No fluid is seen in this area. I do not see inflammation in t he area of the gastric though more posteriorly there is edema in the chest wall.. A tiny amount of ga s with 2 bubbles is seen in the anterior mediastinum just posterior to the sternum. No other mediasti nal gas is seen. No pneumoperitoneum is obvious. Visualized portions of the upper abdomen show no abn ormalities. The right hilum shows moderate adenopathy which is new. No left hilar masses are seen. On ly small nodes are seen in the mediastinum are not pathologically enlarged. The left lower lobe shows moderate atelectatic change and possible pneumonitis which is a new finding . No nodules or masses are seen on the left. There is now a small right pleural effusion with associa timbo atelectatic change. In the lateral aspect of the right middle lobe a small new nodule is noted me asuring 4 mm. No other discrete are seen. On prior study and increasing bilobed density was seen in the posteromedial aspect of the right upper lobe. Today the right upper lobe shows extensive consolidation with air bronchograms which includes this area. This shows small areas of bubbly gas at the upper margin of this dense consolidation. Prom inent vascularity is seen extending through this region. Extending superiorly from this area is a sli ghtly organized rounded area of mildly heterogenous fluid measuring 12 Hounsfield units in the water range. There are 2 air-fluid levels the upper portion of this collection. There is also some loculate d pleural fluid more posteriorly and laterally. Small amount of loculated pleural effusion is seen an teriorly in the lower chest on the right. The aorta shows only mild atherosclerotic changes with no evidence of dissection and no aneurysmal di latation. Good opacification of the pulmonary arterial system was achieved. I do not see evidence of pulmonary thromboembolism. IMPRESSION: 1. No evidence of pulmonary thromboembolism 2. Postoperative changes in the right lung and chest wall with residual pleural fluid, loculated and free, as well as a loculated collection with air-fluid levels in the apical region. 3. Dense consolidation in the remaining right upper lobe tissue with air bronchograms. Some bubbly ty pe gas is seen at the margin of this area which might indicate necrotizing pneumonitis though possibl y this could just relate to the recent surgery. Certainly pneumonia is a possibility in this area. Fo llow-up is suggested. 4. Interval development of right hilar adenopathy 5. Probable patchy pneumonitis and atelectasis in the left lower lobe COMMUNICATION: Time of Communication: 1110 day light time Licensed Practitioner Receiving Report: Dr. Masterson Signer Name: Wyatt Montes MD Signed: 02/02/2019 11:18 AM Workstation Name: [id number]
[2019-02-02 12:23] VITALS: BP 124/61
[2019-02-02 12:46] LABS: Basophils % (Manual) 0 % (0.0-1.8); Total Cells Counted 100
[2019-02-02 12:47] LABS: Platelet Estimate Consistent w Auto
== END 2019-02-02 12:46 | disposition home or self-care (01) ==
LOC: ED 07:42
DX: R07.89 Other chest pain (principal); G89.18 Other acute postprocedural pain; I10 Essential (primary) hypertension; M19.90 Unspecified osteoarthritis, unspecified site; J45.909 Unspecified asthma, uncomplicated; Z98.890 Other specified postprocedural states; Z85.118 Personal history of other malignant neoplasm of bronchus and lung; Z87.891 Personal history of nicotine dependence; Z88.0 Allergy status to penicillin; Z88.1 Allergy status to other antibiotic agents; Z79.899 Other long term (current) drug therapy
CPT/HCPCS: 36415; 71045; 71275; 80048; 83880; 85007; 85025; 96374; 96376; 99285; J2270; Q9967

== ENCOUNTER 2019-03-06 22:59 | Inpatient (IN) | payer MEDICARE ==
[2019-03-06] MEDS ORDERED: NACL 0.9% 1000 ML 1,000 ML IV ONE (23:24)
[2019-03-06] MEDS ORDERED: ZOFRAN ONE (23:30)
--- NOTE | 2019-03-06 23:30 | Emergency Department Report ---
ED General Adult HPI - General Chief complaint: Chest Pain Stated complaint: ALTERED MENTAL STATUS Time Seen by Provider: 03/06/19 23:16 Source: EMS Mode of arrival: Stretcher Limitations: No Limitations - History of Present Illness Initial comments: Patient is 68 years old female with history of COPD and none of obstructive coronary artery disease as the patient had a cardiac cath in March 2018. Patient also was recently diagnosed with lung cancer, s/p lobectomy in January. Patient brought to the emergency room via EMS. Initial call came to EMS as a cardiac arrest with CPR in progress by family. Family stated that patient was sitting in the couch with them when all of sudden patient stopped breathing and collapsed and turned blue. Family stated that they started CPR on her for approximately 1-1/2 minutes when she went back to normal except for back pain and nausea prior to EMS arrival. In the emergency room patient's is alert oriented and is complaining of nausea and back pain. EKG did not show any ST elevation. Patient immediately placed on cardiac monitors. - Related Data Home Medications Medication Instructions Recorded Confirmed Last Taken Albuterol Sulfate [Ventolin HFA] 1 puff IH Q4H PRN 03/17/18 09/18/[address] [Voltarerobert Reina] 75 mg PO BID 03/17/18 09/18/18 2 Days Ago ~03/15/18 Fluticasone/Salmeterol (Nf) 1 puff IH Q12H 03/17/18 09/18/18 2 Days Ago [Advair 250-50 Diskus (Nf)] ~03/15/18 Gabapentin [Neurontin] 300 mg PO BID 03/17/18 09/18/18 2 Days Ago ~03/15/18 Ipratropium/Albuterol Sulfate 0.5 mg IH Q6H 03/17/18 09/18/18 2 Days Ago [DUONEB *Not for PRN Use*] ~03/15/18 Ondansetron [Zofran ODT TAB] 8 mg PO Q8HR 03/17/18 09/18/18 2 Days Ago ~03/15/18 Oxybutynin [Ditropan] 5 mg PO BID 03/17/18 09/18/18 2 Days Ago ~03/15/18 Ranitidine HCl [Zantac] 300 mg PO DAILY 03/17/18 09/18/18 2 Days Ago ~03/15/18 tiZANidine [Zanaflex 4mg TAB] 4 mg PO DAILY 03/17/18 09/18/18 2 Days Ago ~03/15/18 traMADol [Ultram 50 MG tab] 50 mg PO BID 03/17/18 09/18/18 2 Days Ago ~03/15/18 Previous Rx's Medication Instructions Recorded Last Taken Type HYDROcodone/APAP 5-325 [[place] 1 each PO Q6HR PRN #14 tablet 04/02/18 Unknown Rx 5-325 mg TAB] Ondansetron [Zofran ODT TAB] 4 mg PO Q8HR PRN #14 tab.rapdis 04/02/18 Unknown Rx levoFLOXacin [Levaquin TAB] 750 mg PO Q24HR #7 tablet 09/22/18 Unknown Rx metroNIDAZOLE [Flagyl TAB] 500 mg PO Q8HR #21 tablet 09/22/18 Unknown Rx oxyCODONE /ACETAMINOPHEN [Percocet 1 tab PO Q6HR PRN #12 tablet 09/22/18 Unknown Rx 5/325] Allergies Allergy/AdvReac Type Severity Reaction Status Date / Time erythromycin base Allergy Rash Verified 09/22/18 11:48 [Erythromycin Base] Penicillins Allergy Shortness Verified 09/22/18 11:48 of Breath ED Review of Systems ROS: Stated complaint: ALTERED MENTAL STATUS Other details as noted in HPI Comment: All other systems reviewed and negative Constitutional: denies: chills, fever Respiratory: denies: cough, shortness of breath, SOB with exertion Cardiovascular: denies: chest pain, palpitations Gastrointestinal: nausea. denies: abdominal pain, vomiting, diarrhea, constipation, hematemesis, melena, hematochezia Musculoskeletal: back pain Neurological: denies: headache, weakness, numbness, paresthesias, confusion, abnormal gait ED Past Medical Hx - Past Medical History Previous Medical History?: Yes Hx Hypertension: Yes Hx Heart Attack/AMI: Yes Hx Congestive Heart Failure: Yes Hx Deep Vein Thrombosis: No Hx Pulmonary Embolism: No Hx Arthritis: Yes Hx Asthma: Yes Hx COPD: Yes Hx Tuberculosis: No Hx HIV: No Additional medical history: angina. lung CA. chronic pain - Surgical History Past Surgical History?: Yes Hx Coronary Stent: No Hx Pacemaker: No Hx Internal Defibrillator: No Additional Surgical History: [place] cataract surgery. right lobectomy - Social History Smoking Status: Former Smoker Substance Use Type: None - Medications Home Medications: Home Medications Medication Instructions Recorded Confirmed Last Taken Type Albuterol Sulfate [Ventolin HFA] 1 puff IH Q4H PRN 03/17/18 09/18/18 Unknown History Diclofenac [Ginger Reina] 75 mg PO BID 03/17/18 09/18/18 2 Days Ago History ~03/15/18 Fluticasone/Salmeterol (Nf) 1 puff IH Q12H 03/17/18 09/18/18 2 Days Ago History [Advair 250-50 Diskus (Nf)] ~03/15/18 Gabapentin [Neurontin] 300 mg PO BID 03/17/18 09/18/18 2 Days Ago History ~03/15/18 Ipratropium/Albuterol Sulfate 0.5 mg IH Q6H 03/17/18 09/18/18 2 Days Ago History [DUONEB *Not for PRN Use*] ~03/15/18 Ondansetron [Zofran ODT TAB] 8 mg PO Q8HR 03/17/18 09/18/18 2 Days Ago History ~03/15/18 Oxybutynin [Ditropan] 5 mg PO BID 03/17/18 09/18/18 2 Days Ago History ~03/15/18 Ranitidine HCl [Zantac] 300 mg PO DAILY 03/17/18 09/18/18 2 Days Ago History ~03/15/18 tiZANidine [Zanaflex 4mg TAB] 4 mg PO DAILY 03/17/18 09/18/18 2 Days Ago History ~03/15/18 traMADol [Ultram 50 MG tab] 50 mg PO BID 03/17/18 09/18/18 2 Days Ago History ~03/15/18 HYDROcodone/APAP 5-325 [[place] 1 each PO Q6HR PRN #14 tablet 04/02/18 09/18/18 Unknown Rx 5-325 mg TAB] Ondansetron [Zofran ODT TAB] 4 mg PO Q8HR PRN #14 tab.rapdis 04/02/18 09/18/18 Unknown Rx levoFLOXacin [Levaquin TAB] 750 mg PO Q24HR #7 tablet 09/22/18 Unknown Rx metroNIDAZOLE [Flagyl TAB] 500 mg PO Q8HR #21 tablet 09/22/18 Unknown Rx oxyCODONE /ACETAMINOPHEN [Percocet 1 tab PO Q6HR PRN #12 tablet 09/22/18 Unknown Rx 5/325] ED Physical Exam - General Limitations: No Limitations General appearance: alert, anxious - Head Head exam: Present: atraumatic, normocephalic, normal inspection - Eye Eye exam: Present: normal appearance, PERRL - ENT ENT exam: Present: normal exam, normal orophraynx, mucous membranes moist - Neck Neck exam: Present: normal inspection, full ROM. Absent: tenderness, meningismus, lymphadenopathy, thyromegaly - Respiratory Respiratory exam: Present: normal lung sounds bilaterally - Cardiovascular Cardiovascular Exam: Present: regular rate, normal rhythm, normal heart sounds - GI/Abdominal GI/Abdominal exam: Present: soft, normal bowel sounds. Absent: distended, tenderness, guarding, rebound, rigid, organomegaly, mass, bruit, pulsatile mass, hernia - Extremities Exam Extremities exam: Present: normal inspection, full ROM, normal capillary refill. Absent: tenderness, pedal edema, calf tenderness - Back Exam Back exam: Present: normal inspection, full ROM. Absent: CVA tenderness (R), CVA tenderness (L), muscle spasm, paraspinal tenderness, vertebral tenderness - Neurological Exam Neurological exam: Present: alert, oriented X3, CN II-XII intact - Psychiatric Psychiatric exam: Present: normal mood - Skin Skin exam: Present: warm, intact, normal color ED Course Vital Signs 03/06/19 03/07/19 03/07/19 23:22 00:45 01:00 Temperature 98.2 F Pulse Rate 95 H 83 92 H Respiratory 19 15 12 Rate Blood Pressure 129/69 147/78 Blood Pressure 123/72 [Left] O2 Sat by Pulse 96 100 100 Oximetry 03/07/19 01:21 Temperature Pulse Rate 80 Respiratory 13 Rate Blood Pressure 147/78 Blood Pressure [Left] O2 Sat by Pulse 100 Oximetry ED Medical Decision Making - Lab Data Result diagrams: 03/06/19 23:48 03/06/19 23:48 - EKG Data -: EKG Interpreted by Ok EKG shows normal: sinus rhythm Rate: normal - EKG Data Interpretation: no acute changes - Radiology Data Radiology results: report reviewed - Medical Decision Making Patient is 68 years old female with history of COPD and none of obstructive coronary artery disease as the patient had a cardiac cath in March 2018. Patient also was recently diagnosed with lung cancer, s/p lobectomy in January. Patient brought to the emergency room via EMS. Initial call came to EMS as a cardiac arrest with CPR in progress by family. Family stated that patient was sitting in the couch with them when all of sudden patient stopped breathing and collapsed and turned blue. Family stated that they started CPR on her for approximately 1-1/2 minutes when she went back to normal except for back pain and nausea prior to EMS arrival. In the emergency room patient's is alert oriented and is complaining of nausea and back pain. EKG did not show any ST elevation. Patient immediately placed on cardiac monitors. Patient remained stable in the ER. Labs reviewed and is unremarkable except for elevated d-dimer. Patient had a CTA chest which is negative for pulmonary embolism but it showed a bilateral lower lobe infiltrate concerning for pneumonia. 2 sets of troponin so far is negative. I discussed the patient was Dr. Guzmán, she agreed to admit the patient to medical service. Critical Care Time: Yes Critical care time in (mins) excluding proc time.: 30 Critical care attestation.: If time is entered above; I have spent that time in minutes in the direct care of this critically ill patient, excluding procedure time. ED Disposition Clinical Impression: Altered mental status, Pneumonia, Syncope and collapse Disposition: DC-09 OP ADMIT IP TO THIS HOSP Is pt being admited?: Yes Condition: Stable Instructions: Bacterial Pneumonia (ED), Syncope (ED) Referrals: PRIMARY CARE, [Primary Care Provider] - 3-5 Days
[2019-03-06] MEDS ORDERED: ZOFRAN IV ONE (23:48)
[2019-03-07 00:02] LABS: Basophils # (Auto) 0.1 K/mm3 (0.0-0.1); Basophils % (Auto) 0.5 % (0.0-1.8); Eosinophils # (Auto) 0.1 K/mm3 (0.0-0.4); Eosinophils % (Auto) 0.5 % (0.0-4.3); Hematocrit 33.2 % (30.3-42.9); Lymphocytes # (Auto) 0.6 K/mm3 (1.2-5.4); Lymphocytes % (Auto) 6.3 % (13.4-35.0); Mean Corpuscular HGB Conc 33 % (30-34); Mean Corpuscular Volume 90 fl (79-97); Monocytes # (Auto) 0.5 K/mm3 (0.0-0.8); Monocytes % (Auto) 4.4 % (0.0-7.3); Platelet Count 324 K/mm3 (140-440); Red Blood Count 3.71 M/mm3 (3.65-5.03); Red Cell Distribution Width 14.5 % (13.2-15.2)
[2019-03-07 00:12] LABS: INR 1.09 (0.87-1.13)
[2019-03-07 00:17] LABS: Partial Thromboplastin Time 26.4 Sec. (24.2-36.6)
[2019-03-07 00:24] LABS: BUN/Creatinine Ratio 20; Blood Urea Nitrogen 8 mg/dL (7-17); Calcium 8.6 mg/dL (8.4-10.2); Hemolysis Index 1
[2019-03-07 00:26] LABS: Alanine Aminotransferase 38 units/L (7-56); Albumin 3.7 g/dL (3.9-5)
[2019-03-07 00:27] LABS: Bilirubin,Direct < 0.2 mg/dL (0-0.2)
--- NOTE | 2019-03-07 00:32 | XRay Report ---
CHEST 1 VIEW INDICATION: Chest Pain. COMPARISON: 02/02/2019. FINDINGS: Support devices: None. Heart: Within normal limits. Lungs/Pleura: Postsurgical change at the right upper zone with increased density has improved. Negati ve for acute infiltrate. Additional findings: None. IMPRESSION: No acute abnormality. Signer Name: Adonay Reynolds MD Signed: 03/07/2019 12:28 AM Workstation Name: [id number]
[2019-03-07 01:35] LABS: Bacteria,Urine 1+ /HPF (Negative); Bilirubin,Urine NEG (Negative); Blood,Urine NEG (Negative); Color,Urine Colorless (Yellow); Protein,Urine <15 mg/dL mg/dL (Negative); Urobilinogen,Urine < 2.0 mg/dL (<2.0); WBC,Urine < 1.0 /HPF (0.0-6.0)
--- NOTE | 2019-03-07 01:36 | Cat Scan Report ---
CT head/brain wo con INDICATION: AMS. TECHNIQUE: All CT scans at this location are performed using the following dose modulation technique: Automated exposure control. CONTRAST: None. COMPARISON: None available. FINDINGS: The ventricular system is appropriate in size and configuration without midline shift. Nega tive for mass, stroke or hemorrhage. Evaluation the paranasal sinuses demonstrate mild sphenoid fluid. IMPRESSION: Mild sphenoid sinus disease. Signer Name: Adonay Reynolds MD Signed: 03/07/2019 1:32 AM Workstation Name: [id number]
--- NOTE | 2019-03-07 01:57 | Cat Scan Report ---
CT angio chest INDICATION / CLINICAL INFORMATION: Chest pain. Lung cancer. TECHNIQUE: Axial CT images were obtained after injection of Omnipaque 350, 100 cc IV contrast using CTA protocol . 3 plane MIP / 3D reconstructions were produced. All CT scans at this location are performed using C T dose reduction for ALARA by means of automated exposure control. COMPARISON: CTA chest 02/02/2019. FINDINGS: Postsurgical change at the right apex with associated volume loss and masslike consolidation now millie ures 3.9 x 5.1 cm (previously 4.7 x 6 cm). Adjacent fluid and apical soft tissue thickening has impro jenniffer as well. There is now nodularity at the adjacent lung within the superior segment of the right lo wer lobe and within the right lower lobe dependently. Milder changes is present at the left lower lob e. Mediastinal nodes at the AP window and subcarinal region are unchanged. Hilar nodes have improved. Th e largest node (series 3, image 239) has decreased in size from 1.8-1.2 cm. Negative for aneurysm, dissection or pulmonary embolus. Imaging of the upper abdomen is unremarkable. IMPRESSION: 1. Negative for pulmonary embolus. 2. Postsurgical change and masslike consolidation at the upper lobe on the right has improved. Hilar adenopathy is also improved. 3. Patchy consolidation bilaterally right greater than left. Superimposed pneumonia is favored. Signer Name: Adonay Reynolds MD Signed: 03/07/2019 1:53 AM Workstation Name: [id number]
[2019-03-07] MEDS ORDERED: LEVAQUIN 500MG/100ML 500 MG/100 ML BAG IV ONE (02:44)
[2019-03-07] MEDS ORDERED: MORPHINE ONE (02:52)
[2019-03-07] MEDS ORDERED: MORPHINE IV ONE (02:54)
[2019-03-07] MEDS ORDERED: SODIUM CHLORIDE FLUSH SYRINGE 10 ML IV PRN (04:18)
[2019-03-07] MEDS ORDERED: TYLENOL PO PRN (04:18)
[2019-03-07] MEDS ORDERED: ZOFRAN IV PRN (04:18)
[2019-03-07] MEDS ORDERED: SODIUM CHLORIDE FLUSH SYRINGE 10 ML INJ PRN (04:21)
--- NOTE | 2019-03-07 04:34 | History and Physical Report ---
History of Present Illness Date of examination: 03/07/19 Date of admission: 03/07/2019 Chief complaint: AMS History of present illness: 68-year-old female who is a former smoker with history of COPD on continuous supplemental oxygen, non-obstructive coronary artery disease, lung cancer status post lobectomy in 02/05, GERD who presents to [facility] ED via EMS with complaints of altered mental status. Patient's sister and son are present at the bedside. According to patient's son patient was sitting on the couch watching TV when he noticed patient turned blue. He immediately began CPR for approximately 1-2 minutes and EMS was called. Son states that he did not check for a pulse and that patient was wearing her oxygen at the time of event. EMS arrival patient regaining consciousness. Time of my examination patient is awake, alert and oriented 3 and able to answer questions and maintain conversation. Patient does not recall losing consciousness. Denies: SOB, CP, n/v/d, diaphoresis, cough, sputum production, hemoptysis, fever, or chills Past History Past Medical History: CAD (non obstructive), cancer (Lung s/p ), COPD (on use 2.5-3L oxygen), GERD Past Surgical History: Other (lobectomy 01/2019; cardiac cath 03/2018) Social history: lives with family, other (former smoker) Family history: no significant family history Medications and Allergies Allergies Allergy/AdvReac Type Severity Reaction Status Date / Time erythromycin base Allergy Rash Verified 09/22/18 11:48 [Erythromycin Base] Penicillins Allergy Shortness Verified 09/22/18 11:48 of Breath Home Medications Medication Instructions Recorded Confirmed Last Taken Type Albuterol Sulfate [Ventolin HFA] 1 puff IH Q4H PRN 03/17/18 09/18/18 Unknown History Diclofenac [Ginger Reina] 75 mg PO BID 03/17/18 09/18/18 2 Days Ago History ~03/15/18 Fluticasone/Salmeterol (Nf) 1 puff IH Q12H 03/17/18 09/18/18 2 Days Ago History [Advair 250-50 Diskus (Nf)] ~03/15/18 Gabapentin [Neurontin] 300 mg PO BID 03/17/18 09/18/18 2 Days Ago History ~03/15/18 Ipratropium/Albuterol Sulfate 0.5 mg IH Q6H 03/17/18 09/18/18 2 Days Ago History [DUONEB *Not for PRN Use*] ~03/15/18 Ondansetron [Zofran ODT TAB] 8 mg PO Q8HR 03/17/18 09/18/18 2 Days Ago History ~03/15/18 Oxybutynin [Ditropan] 5 mg PO BID 03/17/18 09/18/18 2 Days Ago History ~03/15/18 Ranitidine HCl [Zantac] 300 mg PO DAILY 03/17/18 09/18/18 2 Days Ago History ~03/15/18 tiZANidine [Zanaflex 4mg TAB] 4 mg PO DAILY 03/17/18 09/18/18 2 Days Ago History ~03/15/18 traMADol [Ultram 50 MG tab] 50 mg PO BID 03/17/18 09/18/18 2 Days Ago History ~03/15/18 HYDROcodone/APAP 5-325 [[place] 1 each PO Q6HR PRN #14 tablet 04/02/18 09/18/18 Unknown Rx 5-325 mg TAB] Ondansetron [Zofran ODT TAB] 4 mg PO Q8HR PRN #14 tab.rapdis 04/02/18 09/18/18 Unknown Rx levoFLOXacin [Levaquin TAB] 750 mg PO Q24HR #7 tablet 09/22/18 Unknown Rx metroNIDAZOLE [Flagyl TAB] 500 mg PO Q8HR #21 tablet 09/22/18 Unknown Rx oxyCODONE /ACETAMINOPHEN [Percocet 1 tab PO Q6HR PRN #12 tablet 09/22/18 Unknown Rx 5/325] Active Meds: Active Medications Acetaminophen (Tylenol) 650 mg PO Q4H PRN PRN Reason: Pain MILD(1-3)/Fever >100.5/CASTELLON Albuterol (Proventil) 2.5 mg IH Q3HRT PRN PRN Reason: Shortness Of Breath Atorvastatin Calcium (Lipitor) 40 mg PO QHS [facility]KO Budesonide (Pulmicort) 0.5 mg IH Q12HRT [facility] Docusate Sodium (Colace) 100 mg PO BID [facility]KO Heparin Sodium (Porcine) (Heparin) 5,000 unit SUB-Q Q12HR [facility] Ondansetron HCl (Zofran) 4 mg IV Q8H PRN PRN Reason: Nausea And Vomiting Oxycodone/Acetaminophen (Percocet 5/325) 1 tab PO Q6H PRN PRN Reason: Pain, Moderate (4-6) Sodium Chloride (Sodium Chloride Flush Syringe 10 Ml) 10 ml IV BID YUMIKO Sodium Chloride (Sodium Chloride Flush Syringe 10 Ml) 10 ml IV PRN PRN PRN Reason: LINE FLUSH Sodium Chloride (Sodium Chloride Flush Syringe 10 Ml) 10 ml INJ PRN PRN PRN Reason: LINE FLUSH Review of Systems All systems: negative Respiratory: other (chest tightness) Exam - Physical Exam Narrative exam: Physical exam General appearance: Present: Apparent distress, alert and oriented 3, pleasant, older adult female - EENT Eyes: Present: PERRL, EOM intact ENT: hearing intact, no dentition - Neck Neck: Present: supple, normal ROM - Respiratory Respiratory effort: Non-labored Respiratory: Diminished throughout - Cardiovascular Heart rate: 94(bpm) Rhythm: SR, Heart Sounds: Present: S1 & S2. Absent: rub, click - Extremities Extremities: no ischemia, pulses intact - Peripheral Assessment Peripheral Pulses: within normal limits - Abdominal General gastrointestinal: soft, non-tender, normal bowel sounds - Integumentary Integumentary: Present: warm, dry - Musculoskeletal Musculoskeletal: generalized weakness -Neurological Neurological: CN II-XII grossly intact - Psychiatric Psychiatric: cooperative - Constitutional Vitals: Temp Pulse Resp BP Pulse Ox 98.2 F 80 13 147/78 100 03/06/19 23:22 03/07/19 01:21 03/07/19 01:21 03/07/19 01:21 03/07/19 01:21 Results - Labs CBC & Chem 7: 03/06/19 23:48 03/06/19 23:48 Labs: Laboratory Last Values WBC 10.2 K/mm3 (4.5-11.0) 03/06/19 23:48 RBC 3.71 M/mm3 (3.65-5.03) 03/06/19 23:48 Hgb 11.0 gm/dl (10.1-14.3) 03/06/19 23:48 Hct 33.2 % (30.3-42.9) 03/06/19 23:48 MCV 90 fl (79-97) 03/06/19 23:48 MCH 30 pg (28-32) 03/06/19 23:48 MCHC 33 % (30-34) 03/06/19 23:48 RDW 14.5 % (13.2-15.2) 03/06/19 23:48 Plt Count 324 K/mm3 (140-440) 03/06/19 23:48 Lymph % (Auto) 6.3 % (13.4-35.0) L 03/06/19 23:48 [place] % (Auto) 4.4 % (0.0-7.3) 03/06/19 23:48 Eos % (Auto) 0.5 % (0.0-4.3) 03/06/19 23:48 Baso % (Auto) 0.5 % (0.0-1.8) 03/06/19 23:48 Lymph # 0.6 K/mm3 (1.2-5.4) L 03/06/19 23:48 [place] # 0.5 K/mm3 (0.0-0.8) 03/06/19 23:48 Eos # 0.1 K/mm3 (0.0-0.4) 03/06/19 23:48 Baso # 0.1 K/mm3 (0.0-0.1) 03/06/19 23:48 Seg Neutrophils % 88.3 % (40.0-70.0) H 03/06/19 23:48 Seg Neutrophils # 9.0 K/mm3 (1.8-7.7) H 03/06/19 23:48 PT 13.8 Sec. (12.2-14.9) 03/06/19 23:48 INR 1.09 (0.87-1.13) 03/06/19 23:48 APTT 26.4 Sec. (24.2-36.6) 03/06/19 23:48 1662.84 ng/mlDDU (0-234) H 03/06/19 23:48 Sodium 140 mmol/L (137-145) 03/06/19 23:48 Potassium 3.8 mmol/L (3.6-5.0) 03/06/19 23:48 Chloride 104.3 mmol/L (98-107) 03/06/19 23:48 Carbon Dioxide 21 mmol/L (22-30) L 03/06/19 23:48 19 mmol/L 03/06/19 23:48 BUN 8 mg/dL (7-17) 03/06/19 23:48 0.4 mg/dL (0.7-1.2) L 03/06/19 23:48 Estimated GFR > 60 ml/min 03/06/19 23:48 20 % 03/06/19 23:48 Glucose 169 mg/dL (65-100) H 03/06/19 23:48 Calcium 8.6 mg/dL (8.4-10.2) 03/06/19 23:48 0.30 mg/dL (0.1-1.2) 03/06/19 23:48 < 0.2 mg/dL (0-0.2) 03/06/19 23:48 0.1 mg/dL 03/06/19 23:48 AST 71 units/L (5-40) H 03/06/19 23:48 ALT 38 units/L (7-56) 03/06/19 23:48 94 units/L (35-129) 03/06/19 23:48 < 0.010 ng/mL (0.00-0.029) 03/07/19 01:47 6.5 g/dL (6.3-8.2) 03/06/19 23:48 3.7 g/dL (3.9-5) L 03/06/19 23:48 1.3 % 03/06/19 23:48 Colorless (Yellow) 03/06/19 01:00 Clear (Clear) 03/06/19 01:00 7.0 (5.0-7.0) 03/06/19 01:00 Ur Specific [place] 1.006 (1.003-1.030) 03/06/19 01:00 <15 mg/dl mg/dL (Negative) 03/06/19 01:00 50 mg/dL (Negative) 03/06/19 01:00 Neg mg/dL (Negative) 03/06/19 01:00 Neg (Negative) 03/06/19 01:00 Neg (Negative) 03/06/19 01:00 Neg (Negative) 03/06/19 01:00 < 2.0 mg/dL (<2.0) 03/06/19 01:00 Ur Leukocyte Esterase Neg (Negative) 03/06/19 01:00 < 1.0 /HPF (0.0-6.0) 03/06/19 01:00 2.0 /HPF (0.0-6.0) 03/06/19 01:00 U Epithel Cells (Auto) < 1.0 /HPF (0-13.0) 03/06/19 01:00 1+ /HPF (Negative) 03/06/19 01:00 - Imaging and Cardiology Imaging and Cardiology: CXR: Acute abnormalities CT Head: FINDINGS: The ventricular system is appropriate in size and configuration without midline shift. Negative for mass, stroke or hemorrhage. Evaluation the paranasal sinuses demonstrate mild sphenoid fluid. IMPRESSION: Mild sphenoid sinus disease. CTA Chest: FINDINGS: Postsurgical change at the right apex with associated volume loss and masslike consolidation now measures 3.9 x 5.1 cm (previously 4.7 x 6 cm). Adjacent fluid and apical soft tissue thickening has improved as well. There is now nodularity at the adjacent lung within the superior segment of the right lower lobe and within the right lower lobe dependently. Milder changes is present at the left lower lobe. Mediastinal nodes at the AP window and subcarinal region are unchanged. Hilar nodes have improved. The largest node (series 3, image 239) has decreased in size from 1.8-1.2 cm. Negative for aneurysm, dissection or pulmonary embolus. Imaging of the upper abdomen is unremarkable. IMPRESSION: 1. Negative for pulmonary embolus. 2. Postsurgical change and masslike consolidation at the upper lobe on the right has improved. Hilar adenopathy is also improved. 3. Patchy consolidation bilaterally right greater than left. Superimposed pneumonia is favored. Assessment and Plan Assessment and plan: 68-year-old female who is a former smoker with history of COPD on continuous supplemental oxygen, non-obstructive coronary artery disease, lung cancer status post lobectomy in 02/05, GERD who presents to [facility] ED via EMS with complaints of altered mental status. Acute encephalopathy -Likely metabolic -Afebrile -Neuro checks -Continue supportive care Syncope -Witnessed syncopal episode -Troponin neg x2, will continue to trend x1 -Bilateral carotid doppler pending Non Obstructing CAD -s/p cardiac cah 03/2018 -Echo pending -Start ASA and statin Pneumonia -CT angiogram chest revealed: Patchy consolidation bilaterally right greater than left. Superimposed pneumonia is favored -No leukpcytosis -Blood Cultures Pending -Will start on empiric IV abx Elevated D-Dimer -1662.84 -CTA negative for PE COPD -On continuous 2.5-3L supplemental oxygen -Scheduled Pulmicort and albuterol when necessary -Continue to monitor saturation Hx Lung Cancer -s/p lobectomy 01/2019 DVT PPX -On Heparin Medication reconciliation pending Advance Directives: No VTE prophylaxis?: Chemical Plan of care discussed with patient/family: Yes
[2019-03-07] MEDS: PROVENTIL IH PRN (05:00)
[2019-03-07] MEDS ORDERED: PULMICORT IH SCH (08:00)
--- NOTE | 2019-03-07 08:18 | Progress Note ---
Assessment and Plan Assessment and plan: Patient is a 68-year-old woman with a history of prior tobacco dependency, COPD on continuous supplemental oxygen, non-obstructive coronary artery disease, lung cancer status post lobectomy at [facility] in 01/2019 (she was told no further treatment needed because they got all the cance r), GERD who presents to [facility] ED via EMS with complaints of altered mental status and possible cardiac arrest vs syncope. She was noted by family to turn blue and unconscious. The family performed 1-2 minutes of CPR, the son did not check her pulse. The patient regained consciousness before EMS arrived. It is also unclear if the patient had cardiac arrest at that time as pulse was not checked. Differential diagnoses include cyanotic/hypoxic events, cardiac arrest, Admitted for pneumonia, AMS, ?cardiac arrest. Patient will be monitored on telemetry to monitor for arrhythmia. Patient also admits to having CP for several days, and had CP right before the event. Suspect a cardiac event, tro ponin negative x 3 * pCXR: No Acute abnormalities * CT Head IMPRESSION: Mild sphenoid sinus disease. * CTA Chest FINDINGS: Postsurgical change at the right apex with associated volume loss and masslike consolidation now measures 3.9 x 5.1 cm (previously 4.7 x 6 cm). Adjacent fluid and apical soft tissue thickening has improved as well. There is now nodularity at the adjacent lung within the superior segment of the right lower lobe and within the right lower lobe dependently. Milder changes is present at the left lower lobe. Mediastinal nodes at the AP window and subcarinal region are unchanged. Hilar nodes have improved. The largest node (series 3, image 239) has decreased in size from 1.8-1.2 cm. Negative for aneurysm, dissection or pulmonary embolus. Imaging of the upper abdomen is unremarkable. IMPRESSION: 1. Negative for pulmonary embolus. 2. Postsurgical change and masslike consolidation at the upper lobe on the right has improved. Hilar adenopathy is also improved. 3. Patchy consolidation bilaterally right greater than left. Superimposed pneumonia is favored. Pneumonia -CT angiogram chest revealed: Patchy consolidation bilaterally right greater than left. Superimposed pneumonia is favored -No leukpcytosis -Blood Cultures Pending -treat with IV abx Acute metabolic encephalopathy, poa -Afebrile -Neuro checks -Continue supportive care Syncope vs Cardiac arrest -Witnessed syncopal episode -Troponin neg x2, will continue to trend x1 -Bilateral carotid doppler pending Chest pains with history of CAD -Stress test in am -treat with ASA, Non Obstructing CAD -s/p cardiac cath 03/2018 -Echo pending -Start ASA and statin Elevated D-Dimer -1662.84 -CTA negative for PE COPD with chronic hypoxic respiratory failure -On continuous 2.5-3L supplemental oxygen -Scheduled Pulmicort and albuterol when necessary -Continue to monitor saturation Hx Lung Cancer -s/p lobectomy 01/2019 DVT PPX -On Heparin Prolonged inpatient stay 32 minutes History Interval history: Patient was seen and examined. Follow-up on current diagnosis Syncope and PNA. No overnight events reported to me. Patient denies any chest pain, shortness breath, nausea/vomiting or severe headaches. Imaging, nursing note, chart, labs and old chart reviewed. Discussed with patient. Hospitalist Physical - Physical exam Narrative exam: Gen: WDWN, NAD, Awake, Alert, Orientated HEENT: NCAT, EOMI, PERRL, OP Clear Neck: supple, no adenopathy, no thyromegaly, no JVD CVS/Heart: RRR, normal S1S2, pulses present bilaterally Chest/Lungs: CTA B, Symmetrical chest expansion, good air entry bilaterally GI/Abdomen: soft, NTND, good bowel sounds, no guarding or rebound /Bladder: no suprapubic tenderness, no CVA or paraspinal tenderness Extermity/Skin: no c/c/e, no obvious rash MSK: FROM x 4 Neuro: CN 2-12 grossly intact, no new focal deficits Psych: calm - Constitutional Vitals: Temp Pulse Resp BP Pulse Ox 98.2 F 87 19 139/76 97 03/06/19 23:22 03/07/19 06:15 03/07/19 06:15 03/07/19 05:31 03/07/19 05:05 Results - Labs CBC & Chem 7: 03/06/19 23:48 03/06/19 23:48 Labs: Laboratory Last Values WBC 10.2 K/mm3 (4.5-11.0) 03/06/19 23:48 RBC 3.71 M/mm3 (3.65-5.03) 03/06/19 23:48 Hgb 11.0 gm/dl (10.1-14.3) 03/06/19 23:48 Hct 33.2 % (30.3-42.9) 03/06/19 23:48 MCV 90 fl (79-97) 03/06/19 23:48 MCH 30 pg (28-32) 03/06/19 23:48 MCHC 33 % (30-34) 03/06/19 23:48 RDW 14.5 % (13.2-15.2) 03/06/19 23:48 Plt Count 324 K/mm3 (140-440) 03/06/19 23:48 Lymph % (Auto) 6.3 % (13.4-35.0) L 03/06/19 23:48 [place] % (Auto) 4.4 % (0.0-7.3) 03/06/19 23:48 Eos % (Auto) 0.5 % (0.0-4.3) 03/06/19 23:48 Baso % (Auto) 0.5 % (0.0-1.8) 03/06/19 23:48 Lymph # 0.6 K/mm3 (1.2-5.4) L 03/06/19 23:48 [place] # 0.5 K/mm3 (0.0-0.8) 03/06/19 23:48 Eos # 0.1 K/mm3 (0.0-0.4) 03/06/19 23:48 Baso # 0.1 K/mm3 (0.0-0.1) 03/06/19 23:48 Seg Neutrophils % 88.3 % (40.0-70.0) H 03/06/19 23:48 Seg Neutrophils # 9.0 K/mm3 (1.8-7.7) H 03/06/19 23:48 PT 13.8 Sec. (12.2-14.9) 03/06/19 23:48 INR 1.09 (0.87-1.13) 03/06/19 23:48 APTT 26.4 Sec. (24.2-36.6) 03/06/19 23:48 1662.84 ng/mlDDU (0-234) H 03/06/19 23:48 Sodium 140 mmol/L (137-145) 03/06/19 23:48 Potassium 3.8 mmol/L (3.6-5.0) 03/06/19 23:48 Chloride 104.3 mmol/L (98-107) 03/06/19 23:48 Carbon Dioxide 21 mmol/L (22-30) L 03/06/19 23:48 19 mmol/L 03/06/19 23:48 BUN 8 mg/dL (7-17) 03/06/19 23:48 0.4 mg/dL (0.7-1.2) L 03/06/19 23:48 Estimated GFR > 60 ml/min 03/06/19 23:48 20 % 03/06/19 23:48 Glucose 169 mg/dL (65-100) H 03/06/19 23:48 Calcium 8.6 mg/dL (8.4-10.2) 03/06/19 23:48 0.30 mg/dL (0.1-1.2) 03/06/19 23:48 < 0.2 mg/dL (0-0.2) 03/06/19 23:48 0.1 mg/dL 03/06/19 23:48 AST 71 units/L (5-40) H 03/06/19 23:48 ALT 38 units/L (7-56) 03/06/19 23:48 94 units/L (35-129) 03/06/19 23:48 < 0.010 ng/mL (0.00-0.029) 03/07/19 05:25 6.5 g/dL (6.3-8.2) 03/06/19 23:48 3.7 g/dL (3.9-5) L 03/06/19 23:48 1.3 % 03/06/19 23:48 Colorless (Yellow) 03/06/19 01:00 Clear (Clear) 03/06/19 01:00 7.0 (5.0-7.0) 03/06/19 01:00 Ur Specific [place] 1.006 (1.003-1.030) 03/06/19 01:00 <15 mg/dl mg/dL (Negative) 03/06/19 01:00 50 mg/dL (Negative) 03/06/19 01:00 Neg mg/dL (Negative) 03/06/19 01:00 Neg (Negative) 03/06/19 01:00 Neg (Negative) 03/06/19 01:00 Neg (Negative) 03/06/19 01:00 < 2.0 mg/dL (<2.0) 03/06/19 01:00 Ur Leukocyte Esterase Neg (Negative) 03/06/19 01:00 < 1.0 /HPF (0.0-6.0) 03/06/19 01:00 2.0 /HPF (0.0-6.0) 03/06/19 01:00 U Epithel Cells (Auto) < 1.0 /HPF (0-13.0) 03/06/19 01:00 1+ /HPF (Negative) 03/06/19 01:00 Active Medications - Current Medications Current Medications: Generic Name Dose Route Start Last Admin Trade Name Freq PRN Reason Stop Dose Admin Acetaminophen 650 mg 03/07/19 04:18 Tylenol PO Q4H PRN Pain MILD(1-3)/Fever >100.5/CASTELLON Albuterol 2.5 mg 03/07/19 04:18 03/07/19 05:00 Proventil IH 2.5 mg Q3HRT PRN Administration Shortness Of Breath Aspirin 81 mg 03/07/19 10:00 Baby Aspirin PO QDAY [facility] Atorvastatin Calcium 40 mg 03/07/19 22:00 Lipitor PO QHS [facility] Budesonide 0.5 mg 03/07/19 08:00 Pulmicort IH Q12HRT [facility] Docusate Sodium 100 mg 03/07/19 10:00 Colace PO BID [facility] Famotidine 40 mg 03/07/19 10:00 Pepcid PO DAILY [facility] Gabapentin 300 mg 03/07/19 10:00 Neurontin PO BID [facility] Heparin Sodium (Porcine) 5,000 unit 03/07/19 10:00 Heparin SUB-Q Q12HR [facility] Levofloxacin/Dextrose 500 mg in 100 mls @ 100 mls/hr 03/07/19 10:00 Levaquin 500mg/100ml IV Q24HR [facility] Protocol Ondansetron HCl 4 mg 03/07/19 04:18 Zofran IV Q8H PRN Nausea And Vomiting Oxybutynin Chloride 5 mg 03/07/19 10:00 Ditropan PO BID [facility] Oxycodone/Acetaminophen 1 tab 03/07/19 04:18 Percocet 5/325 PO Q6H PRN Pain, Moderate (4-6) Sodium Chloride 10 ml 03/07/19 10:00 Sodium Chloride Flush Syringe 10 Ml IV BID YUMIKO Sodium Chloride 10 ml 03/07/19 04:18 Sodium Chloride Flush Syringe 10 Ml IV PRN PRN LINE FLUSH Tizanidine HCl 4 mg 03/07/19 10:00 Zanaflex PO DAILY [facility]
[2019-03-07] MEDS: COLACE PO SCH ×2 (09:36→21:59)
[2019-03-07] MEDS: HEPARIN SUB-Q SCH ×2 (09:36→21:59)
[2019-03-07] MEDS: BABY ASPIRIN PO SCH (09:36)
[2019-03-07] MEDS: PEPCID PO SCH (09:36)
[2019-03-07] MEDS: LEVAQUIN 500MG/100ML 500 MG/100 ML BAG IV SCH (09:37)
[2019-03-07] MEDS: SODIUM CHLORIDE FLUSH SYRINGE 10 ML IV SCH ×2 (09:37→22:01)
[2019-03-07] MEDS: PERCOCET 5/325 PO PRN ×3 (09:37→22:01)
[2019-03-07] MEDS ORDERED: ZANAFLEX PO SCH (10:00)
[2019-03-07] MEDS ORDERED: NEURONTIN PO SCH (10:00)
[2019-03-07] MEDS ORDERED: DITROPAN PO SCH (10:00)
--- NOTE | 2019-03-07 13:06 | Consultation ---
History of Present Illness Consult date: 03/07/19 Requesting physician: SHOLA REYES Reason for consult: COPD, abnormal CXR/CT History of present illness: 68 y/o female with known COPD, admitted with altered mental state. Patient has no recollection of how she arrived. She was watching TV and eating and then blacked out. We have been consulted for COPD exacerbation but the patient had no issues with breathing, currently on room air and stable. Her CT scan shows chronic changes from her surgery for Lung CA and she has no white count and no fever. Past History Past Medical History: CAD (non obstructive), cancer (Lung s/p ), COPD (on use 2.5-3L oxygen), GERD Past Surgical History: Other (lobectomy 01/2019; cardiac cath 03/2018) Social history: lives with family, other (former smoker) Family history: no significant family history Medications and Allergies Allergies Allergy/AdvReac Type Severity Reaction Status Date / Time erythromycin base Allergy Rash Verified 09/22/18 11:48 [Erythromycin Base] Penicillins Allergy Shortness Verified 09/22/18 11:48 of Breath Home Medications Medication Instructions Recorded Confirmed Last Taken Type Albuterol Sulfate [Ventolin HFA] 1 puff IH Q4H PRN 03/17/18 03/07/19 Unknown History Gabapentin [Neurontin] 300 mg PO BID 03/17/18 03/07/19 2 Days Ago History ~03/05/19 Ipratropium/Albuterol Sulfate 0.5 mg IH Q6H 03/17/18 03/07/19 2 Days Ago History [DUONEB *Not for PRN Use*] ~03/05/19 Oxybutynin [Ditropan] 5 mg PO BID 03/17/18 03/07/19 2 Days Ago History ~03/05/19 tiZANidine [Zanaflex 4mg TAB] 4 mg PO DAILY 03/17/18 03/07/19 2 Days Ago History ~03/05/19 HYDROcodone/APAP 5-325 [[place] 1 each PO Q6HR PRN #14 tablet 04/02/18 03/07/19 Unknown Rx 5-325 mg TAB] Carafate 1 gm PO TID 03/07/19 03/07/19 2 Days Ago History ~03/05/19 Flonase 50 mcg IH DAILY 03/07/19 03/07/19 2 Days Ago History ~03/05/19 Fluticasone/Salmeterol [Advair 250 mg IH DAILY 03/07/19 03/07/19 2 Days Ago History Diskus 250-50 mcg] ~03/05/19 Loratadine 10 mg PO DAILY 03/07/19 03/07/19 2 Days Ago History ~03/05/19 Omeprazole 40 mg PO DAILY 03/07/19 03/07/19 2 Days Ago History ~03/05/19 Robaxin 500 mg PO QID 03/07/19 03/07/19 2 Days Ago History ~03/05/19 Silenor 6 mg PO QHS 03/07/19 03/07/19 2 Days Ago History ~03/05/19 oxyCODONE /ACETAMINOPHEN [Percocet 7.5 mg PO Q6HR PRN 03/07/19 03/07/19 2 Days Ago History 5/325] ~03/05/19 Active Meds: Active Medications Acetaminophen (Tylenol) 650 mg PO Q4H PRN PRN Reason: Pain MILD(1-3)/Fever >100.5/[place]ON Albuterol (Proventil) 2.5 mg IH Q3HRT PRN PRN Reason: Shortness Of Breath Last Admin: 03/07/19 05:00 Dose: 2.5 mg Documented by: Aspirin (Baby Aspirin) 81 mg PO QDAY [facility] Last Admin: 03/07/19 09:36 Dose: Not Given Documented by: Atorvastatin Calcium (Lipitor) 40 mg PO QHS [facility] Budesonide (Pulmicort) 0.5 mg IH Q12HRT [facility] Last Admin: 03/07/19 11:14 Dose: Not Given Documented by: Docusate Sodium (Colace) 100 mg PO BID [facility] Last Admin: 03/07/19 09:36 Dose: 100 mg Documented by: Famotidine (Pepcid) 40 mg PO DAILY [facility] Last Admin: 03/07/19 09:36 Dose: 40 mg Documented by: Gabapentin (Neurontin) 300 mg PO BID [facility] Last Admin: 03/07/19 09:36 Dose: 300 mg Documented by: Heparin Sodium (Porcine) (Heparin) 5,000 unit SUB-Q Q12HR [facility] Last Admin: 03/07/19 09:36 Dose: 5,000 unit Documented by: Levofloxacin/Dextrose (Levaquin 500mg/100ml) 500 mg in 100 mls @ 100 mls/hr IV Q24HR [facility]; Protocol Last Admin: 03/07/19 09:37 Dose: 100 mls/hr Documented by: Ondansetron HCl (Zofran) 4 mg IV Q8H PRN PRN Reason: Nausea And Vomiting Oxybutynin Chloride (Ditropan) 5 mg PO BID [facility] Oxycodone/Acetaminophen (Percocet 5/325) 1 tab PO Q6H PRN PRN Reason: Pain, Moderate (4-6) Last Admin: 03/07/19 09:37 Dose: 1 tab Documented by: Sodium Chloride (Sodium Chloride Flush Syringe 10 Ml) 10 ml IV BID [facility] Last Admin: 03/07/19 09:37 Dose: 10 ml Documented by: Sodium Chloride (Sodium Chloride Flush Syringe 10 Ml) 10 ml IV PRN PRN PRN Reason: LINE FLUSH Tizanidine HCl (Zanaflex) 4 mg PO DAILY [facility] Last Admin: 03/07/19 09:36 Dose: 4 mg Documented by: Review of Systems All systems: negative Physical Examination Vital signs: Vital Signs Temp Pulse Resp BP Pulse Ox 98.2 F 95 H 19 123/72 96 03/06/19 23:22 03/06/19 23:22 03/06/19 23:22 03/06/19 23:22 03/06/19 23:22 General appearance: no acute distress, alert Eyes: non-icteric ENT: oropharynx moist Neck: supple Effort: normal Ascultation: Bilateral: diminished breath sounds (but clear) Percussion: Bilateral: not dull Tactile fremitus: Bilateral: normal Cardiovascular: regular rate and rhythm Gastrointestinal: soft Extremities: pink and warm normal mental status, non-focal exam Results - Laboratory Findings CBC and BMP: 03/08/19 04:03 03/08/19 04:03 PT/INR, D-dimer PT 13.8 Sec. (12.2-14.9) 03/06/19 23:48 INR 1.09 (0.87-1.13) 03/06/19 23:48 1662.84 ng/mlDDU (0-234) H 03/06/19 23:48 Abnormal lab findings: Abnormal Labs 03/06/19 03/06/19 03/06/19 23:48 23:48 23:48 Lymph % (Auto) 6.3 L Lymph # 0.6 L Seg Neutrophils % 88.3 H Seg Neutrophils # 9.0 H D-Dimer 1662.84 H Carbon Dioxide 21 L Creatinine 0.4 L Glucose 169 H AST Albumin 03/06/19 23:48 Lymph % (Auto) Lymph # Seg Neutrophils % Seg Neutrophils # D-Dimer Carbon Dioxide Creatinine Glucose AST 71 H Albumin 3.7 L - Diagnostic Findings CT scan - chest: image reviewed (please see HPI) Assessment and Plan 68 y/o female with known COPD, s/p lobectomy for lung CA admitted with altered mental state. 1. patient does not currently appear to be in a COPD exacerbation. 2. Unsure of cause of altered mental state given history 3. Follow up cardiac recommendations.
--- NOTE | 2019-03-07 13:31 | Vascular Lab Report ---
DUPLEX DOPPLER CAROTID BILATERAL Indication: syncope Technique: Findings: Scattered sclerotic plaque identified throughout both internal carotid arteries. Both vertebral arteries are patent with antegrade flow. Right CCA velocity is 51 cm/sec. Right ICA peak systolic velocity is 72 cm/sec. Right ICA end-diastolic velocity is 23 cm/sec. Systolic velocity ratio is 1.4. There is no significant spectral broadening. Left CCA velocity is 51 cm/sec. Left ICA peak systolic velocity is 72 cm/sec. Left ICA end-diastolic velocity is 23 cm/sec. Systolic velocity ratio is 1.4. There is no significant spectral broadening. Impression: No hemodynamically significant stenosis of either carotid artery using criteria similar to NASCET. Signer Name: Margarito England MD Signed: 03/07/2019 1:27 PM Workstation Name: [id number]
[2019-03-07] MEDS ORDERED: PERCOCET 5/325 PO PRN (19:21)
[2019-03-07] MEDS ORDERED: FLONASE 50 MCG IH SCH (19:30)
[2019-03-07] MEDS ORDERED: FLUTICASONE IH SCH (19:30)
[2019-03-07] MEDS ORDERED: SALMETEROL IH SCH (19:30)
[2019-03-07] MEDS ORDERED: NON-FORMULARY (Omeprazole 40 MG) PO SCH (19:30)
[2019-03-07] MEDS ORDERED: CARAFATE 1 GM PO SCH (20:00)
[2019-03-07] MEDS: DUONEB *Not for PRN Use IH SCH (20:35)
[2019-03-07] MEDS: BROVANA NEBU IH SCH (20:35)
[2019-03-07] MEDS: PULMICORT IH SCH (20:35)
[2019-03-07] MEDS: ROBAXIN PO SCH (21:59)
[2019-03-07] MEDS: CARAFATE PO SCH (21:59)
[2019-03-07] MEDS ORDERED: ROBAXIN 500 MG PO SCH (22:00)
[2019-03-07] MEDS: FLONASE NS SCH (22:00)
[2019-03-07] MEDS ORDERED: SILENOR 6 MG PO SCH (22:00)
[2019-03-07] MEDS: PROTONIX PO SCH (22:09)
[2019-03-07] MEDS ORDERED: BENADRYL PO PRN (23:03)
[2019-03-08] MEDS: DUONEB *Not for PRN Use IH SCH ×4 (01:21→19:35)
[2019-03-08 04:47] LABS: Basophils # (Auto) 0.1 K/mm3 (0.0-0.1); Basophils % (Auto) 0.8 % (0.0-1.8); Eosinophils # (Auto) 0.4 K/mm3 (0.0-0.4); Eosinophils % (Auto) 5.6 % (0.0-4.3); Hematocrit 33.4 % (30.3-42.9); Hemoglobin 10.8 gm/dl (10.1-14.3); Lymphocytes # (Auto) 1.9 K/mm3 (1.2-5.4); Lymphocytes % (Auto) 26.1 % (13.4-35.0); Mean Corpuscular HGB Conc 32 % (30-34); Mean Corpuscular Volume 91 fl (79-97); Monocytes # (Auto) 0.8 K/mm3 (0.0-0.8); Monocytes % (Auto) 10.2 % (0.0-7.3); Platelet Count 282 K/mm3 (140-440); Red Blood Count 3.68 M/mm3 (3.65-5.03); Red Cell Distribution Width 15.1 % (13.2-15.2)
[2019-03-08 05:07] LABS: BUN/Creatinine Ratio 15; Blood Urea Nitrogen 6 mg/dL (7-17); Calcium 8.8 mg/dL (8.4-10.2); Chol/HDL Ratio 2.46 %; HDL Cholesterol 54 mg/dL (40-59); Hemolysis Index 6; LDL Cholesterol,Direct 72 mg/dL (50-130)
[2019-03-08] MEDS: PERCOCET 5/325 PO PRN ×2 (06:38→21:21)
[2019-03-08] MEDS ORDERED: LEXISCAN IV ONE (07:02)
[2019-03-08] MEDS: PULMICORT IH SCH ×2 (08:13→19:35)
[2019-03-08] MEDS: BROVANA NEBU IH SCH ×2 (08:13→19:35)
[2019-03-08] MEDS ORDERED: NON-FORMULARY (Loratadine 10 MG) PO SCH (10:00)
[2019-03-08] MEDS: BABY ASPIRIN PO SCH (10:25)
[2019-03-08] MEDS: LEVAQUIN 500MG/100ML 500 MG/100 ML BAG IV SCH (11:57)
[2019-03-08] MEDS: PROTONIX PO SCH (11:58)
[2019-03-08] MEDS: COLACE PO SCH ×2 (11:58→21:21)
[2019-03-08] MEDS: ROBAXIN PO SCH ×4 (11:58→21:22)
[2019-03-08] MEDS: CLARITIN PO SCH (11:58)
[2019-03-08] MEDS: CARAFATE PO SCH ×3 (11:59→21:22)
[2019-03-08] MEDS: HEPARIN SUB-Q SCH ×2 (11:59→21:22)
[2019-03-08] MEDS: FLONASE NS SCH (11:59)
[2019-03-08] MEDS: SODIUM CHLORIDE FLUSH SYRINGE 10 ML IV SCH ×2 (12:00→21:45)
[2019-03-08] MEDS ORDERED: NORCO 10/325 PO PRN ×2 (12:00→14:30)
--- NOTE | 2019-03-08 19:29 | Progress Note ---
Assessment and Plan Assessment and plan: Patient is a 68-year-old woman with a history of prior tobacco dependency, COPD on continuous supplemental oxygen, non-obstructive coronary artery disease, lung cancer status post lobectomy at [facility] in 01/2019 (she was told no further treatment needed because they got all the cance r), GERD who presents to [facility] via EMS with complaints of altered mental status and possible cardiac arrest vs syncope. She was noted by family to turn blue and unconscious. The family performed 1-2 minutes of CPR, the son did not check her pulse. The patient regained consciousness before EMS arrived. It is also unclear if the patient had cardiac arrest at that time as pulse was not checked. Differential diagnoses include cyanotic/hypoxic events, cardiac arrest, Admitted for pneumonia, AMS, ?cardiac arrest. Patient will be monitored on telemetry to monitor for arrhythmia. Patient also admits to having CP for several days, and had CP right before the event. Suspect a cardiac event, tro ponin negative x 3 * pCXR: No Acute abnormalities * CT Head IMPRESSION: Mild sphenoid sinus disease. * CTA Chest FINDINGS: Postsurgical change at the right apex with associated volume loss and masslike consolidation now measures 3.9 x 5.1 cm (previously 4.7 x 6 cm). Adjacent fluid and apical soft tissue thickening has improved as well. There is now nodularity at the adjacent lung within the superior segment of the right lower lobe and within the right lower lobe dependently. Milder changes is present at the left lower lobe. Mediastinal nodes at the AP window and subcarinal region are unchanged. Hilar nodes have improved. The largest node (series 3, image 239) has decreased in size from 1.8-1.2 cm. Negative for aneurysm, dissection or pulmonary embolus. Imaging of the upper abdomen is unremarkable. IMPRESSION: 1. Negative for pulmonary embolus. 2. Postsurgical change and masslike consolidation at the upper lobe on the right has improved. Hilar adenopathy is also improved. 3. Patchy consolidation bilaterally right greater than left. Superimposed pneumonia is favored. Pneumonia -CT angiogram chest revealed: Patchy consolidation bilaterally right greater than left. Superimposed pneumonia is favored -No leukpcytosis -Blood Cultures Pending -treat with IV abx Acute metabolic encephalopathy, poa -Afebrile -Neuro checks -Continue supportive care Syncope vs Cardiac arrest -Witnessed syncopal episode -Troponin neg x2, will continue to trend x1 -Bilateral carotid doppler pending Chest pains with history of CAD -Stress test in am -treat with ASA, Non Obstructing CAD -s/p cardiac cath 03/2018 -Echo pending -Start ASA and statin Elevated D-Dimer -1662.84 -CTA negative for PE COPD with chronic hypoxic respiratory failure -On continuous 2.5-3L supplemental oxygen -Scheduled Pulmicort and albuterol when necessary -Continue to monitor saturation Hx Lung Cancer -s/p lobectomy 01/2019 DVT PPX -On Heparin History Interval history: Patient was seen and examined. Follow-up on current diagnosis Syncope and PNA. N o overnight events reported to me. Patient denies any chest pain, shortness breath, nausea/vomiting or severe headaches. Imaging, nursing note, chart, labs and old chart reviewed. Discussed with patient. Hospitalist Physical - Physical exam Narrative exam: Gen: WDWN, NAD, Awake, Alert, Orientated HEENT: NCAT, EOMI, PERRL, OP Clear Neck: supple, no adenopathy, no thyromegaly, no JVD CVS/Heart: RRR, normal S1S2, pulses present bilaterally Chest/Lungs: CTA B, Symmetrical chest expansion, good air entry bilaterally GI/Abdomen: soft, NTND, good bowel sounds, no guarding or rebound /Bladder: no suprapubic tenderness, no CVA or paraspinal tenderness Extermity/Skin: no c/c/e, no obvious rash MSK: FROM x 4 Neuro: CN 2-12 grossly intact, no new focal deficits Psych: calm - Constitutional Vitals: Temp Pulse Resp BP Pulse Ox 97.8 F 81 20 148/75 98 03/08/19 07:32 03/08/19 14:30 03/08/19 14:30 03/08/19 07:32 03/08/19 08:18 Results - Labs CBC & Chem 7: 03/08/19 04:03 03/08/19 04:03 Labs: Laboratory Last Values WBC 7.4 K/mm3 (4.5-11.0) 03/08/19 04:03 RBC 3.68 M/mm3 (3.65-5.03) 03/08/19 04:03 Hgb 10.8 gm/dl (10.1-14.3) 03/08/19 04:03 Hct 33.4 % (30.3-42.9) 03/08/19 04:03 MCV 91 fl (79-97) 03/08/19 04:03 MCH 29 pg (28-32) 03/08/19 04:03 MCHC 32 % (30-34) 03/08/19 04:03 RDW 15.1 % (13.2-15.2) 03/08/19 04:03 Plt Count 282 K/mm3 (140-440) 03/08/19 04:03 Lymph % (Auto) 26.1 % (13.4-35.0) 03/08/19 04:03 [place] % (Auto) 10.2 % (0.0-7.3) H 03/08/19 04:03 Eos % (Auto) 5.6 % (0.0-4.3) H 03/08/19 04:03 Baso % (Auto) 0.8 % (0.0-1.8) 03/08/19 04:03 Lymph # 1.9 K/mm3 (1.2-5.4) 03/08/19 04:03 [place] # 0.8 K/mm3 (0.0-0.8) 03/08/19 04:03 Eos # 0.4 K/mm3 (0.0-0.4) 03/08/19 04:03 Baso # 0.1 K/mm3 (0.0-0.1) 03/08/19 04:03 Seg Neutrophils % 57.3 % (40.0-70.0) 03/08/19 04:03 Seg Neutrophils # 4.2 K/mm3 (1.8-7.7) 03/08/19 04:03 PT 13.8 Sec. (12.2-14.9) 03/06/19 23:48 INR 1.09 (0.87-1.13) 03/06/19 23:48 APTT 26.4 Sec. (24.2-36.6) 03/06/19 23:48 1662.84 ng/mlDDU (0-234) H 03/06/19 23:48 Sodium 144 mmol/L (137-145) 03/08/19 04:03 Potassium 3.6 mmol/L (3.6-5.0) 03/08/19 04:03 Chloride 107.4 mmol/L (98-107) H 03/08/19 04:03 Carbon Dioxide 26 mmol/L (22-30) 03/08/19 04:03 14 mmol/L 03/08/19 04:03 BUN 6 mg/dL (7-17) L 03/08/19 04:03 0.4 mg/dL (0.7-1.2) L 03/08/19 04:03 Estimated GFR > 60 ml/min 03/08/19 04:03 15 % 03/08/19 04:03 Glucose 97 mg/dL (65-100) 03/08/19 04:03 Calcium 8.8 mg/dL (8.4-10.2) 03/08/19 04:03 0.30 mg/dL (0.1-1.2) 03/06/19 23:48 < 0.2 mg/dL (0-0.2) 03/06/19 23:48 0.1 mg/dL 03/06/19 23:48 AST 71 units/L (5-40) H 03/06/19 23:48 ALT 38 units/L (7-56) 03/06/19 23:48 94 units/L (35-129) 03/06/19 23:48 < 0.010 ng/mL (0.00-0.029) 03/07/19 05:25 6.5 g/dL (6.3-8.2) 03/06/19 23:48 3.7 g/dL (3.9-5) L 03/06/19 23:48 1.3 % 03/06/19 23:48 Triglycerides 131 mg/dL (2-149) 03/08/19 04:03 Cholesterol 133 mg/dL (50-199) 03/08/19 04:03 72 mg/dL (50-130) 03/08/19 04:03 54 mg/dL (40-59) 03/08/19 04:03 2.46 % 03/08/19 04:03 Colorless (Yellow) 03/06/19 01:00 Clear (Clear) 03/06/19 01:00 7.0 (5.0-7.0) 03/06/19 01:00 Ur Specific [place] 1.006 (1.003-1.030) 03/06/19 01:00 <15 mg/dl mg/dL (Negative) 03/06/19 01:00 50 mg/dL (Negative) 03/06/19 01:00 Neg mg/dL (Negative) 03/06/19 01:00 Neg (Negative) 03/06/19 01:00 Neg (Negative) 03/06/19 01:00 Neg (Negative) 03/06/19 01:00 < 2.0 mg/dL (<2.0) 03/06/19 01:00 Ur Leukocyte Esterase Neg (Negative) 03/06/19 01:00 < 1.0 /HPF (0.0-6.0) 03/06/19 01:00 2.0 /HPF (0.0-6.0) 03/06/19 01:00 U Epithel Cells (Auto) < 1.0 /HPF (0-13.0) 03/06/19 01:00 1+ /HPF (Negative) 03/06/19 01:00 Active Medications - Current Medications Current Medications: Generic Name Dose Route Start Last Admin Trade Name Freq PRN Reason Stop Dose Admin Acetaminophen 650 mg 03/07/19 04:18 Tylenol PO Q4H PRN Pain MILD(1-3)/Fever >100.5/CASTELLON Acetaminophen/Hydrocodone Bitart 1 each 03/08/19 14:30 [place] 10/325 PO Q4H PRN Pain , Severe (7-10) Albuterol 2.5 mg 03/07/19 04:18 03/07/19 05:00 Proventil IH 2.5 mg Q3HRT PRN Administration Shortness Of Breath Albuterol/Ipratropium 1 ampul 03/07/19 19:30 03/08/19 14:16 Duoneb *Not For Prn Use* IH 1 ampul Q6H [facility] Administration Arformoterol Tartrate 15 mcg 03/07/19 20:00 03/08/19 08:13 Bropuraa Steveu IH 15 mcg Q12HRT Y[facility]KO Administration Aspirin 81 mg 03/07/19 10:00 03/08/19 10:25 Baby Aspirin PO Not Given QDAY [facility] Atorvastatin Calcium 40 mg 03/07/19 22:00 03/07/19 21:59 Lipitor PO 40 mg QHS [facility] Administration Budesonide 0.5 mg 03/07/19 20:00 03/08/19 08:13 Pulmicort IH 0.5 mg Q12HRT [facility] Administration Diphenhydramine HCl 25 mg 03/07/19 23:03 03/07/19 23:35 Benadryl PO 25 mg QHS PRN Administration Sleep Docusate Sodium 100 mg 03/07/19 10:00 03/08/19 11:58 Colace PO 100 mg BID [facility] Administration Fluticasone Propionate 50 mcg 03/07/19 19:30 03/08/19 11:59 Flonase NS 50 mcg QDAY [facility] Administration Heparin Sodium (Porcine) 5,000 unit 03/07/19 10:00 03/08/19 11:59 Heparin SUB-Q 5,000 unit Q12HR [facility] Administration Levofloxacin/Dextrose 500 mg in 100 mls @ 100 mls/hr 03/07/19 10:00 03/08/19 11:57 Levaquin 500mg/100ml IV 100 mls/hr Q24HR [facility] Administration Protocol Loratadine 10 mg 03/08/19 10:00 03/08/19 11:58 Claritin PO 10 mg DAILY [facility] Administration Methocarbamol 500 mg 03/07/19 22:00 03/08/19 14:33 Robaxin PO 500 mg QID [facility] Administration Miscellaneous Medication 6 mg 03/07/19 22:00 Silenor PO QHS [facility] Ondansetron HCl 4 mg 03/07/19 04:18 Zofran IV Q8H PRN Nausea And Vomiting Oxycodone/Acetaminophen 1 tab 03/07/19 19:33 03/08/19 06:38 Percocet 5/325 PO 1 tab Q6H PRN Administration Pain, Moderate (4-6) Pantoprazole Sodium 40 mg 03/07/19 19:30 03/08/19 11:58 Protonix PO 40 mg DAILY [facility] Administration Sodium Chloride 10 ml 03/07/19 10:00 03/08/19 12:00 Sodium Chloride Flush Syringe 10 Ml IV 10 ml BID [facility] Administration Sodium Chloride 10 ml 03/07/19 04:18 Sodium Chloride Flush Syringe 10 Ml IV PRN PRN LINE FLUSH Sucralfate 1 gm 03/07/19 20:00 03/08/19 14:34 Carafate PO 1 gm TID [facility] Administration Nutrition/Malnutrition Assess - Dietary Evaluation Nutrition/Malnutrition Findings: Nutrition Notes Start: 03/07/19 13:31 Freq: Status: Active Protocol: Document 03/07/19 13:41 RM (Rec: 03/07/19 13:41 RM [id number]) Nutrition Notes Need for Assessment generated from: jacker Initial or Follow up Brief Note Subjective/Other Information Screened for skin risk. James 22 points. Nutrition Intervention Revisit per MD consult or patient Sign Off request:
[2019-03-09] MEDS: PEPCID PO SCH (01:41)
[2019-03-09] MEDS: DUONEB *Not for PRN Use IH SCH ×3 (01:55→13:45)
[2019-03-09] MEDS: PERCOCET 5/325 PO PRN ×2 (04:13→10:00)
[2019-03-09] MEDS: BROVANA NEBU IH SCH (07:57)
[2019-03-09] MEDS: PULMICORT IH SCH (07:57)
[2019-03-09] MEDS: CARAFATE PO SCH ×2 (09:40→13:28)
[2019-03-09] MEDS: ROBAXIN PO SCH ×2 (09:40→13:28)
[2019-03-09] MEDS: LEVAQUIN 500MG/100ML 500 MG/100 ML BAG IV SCH (09:41)
[2019-03-09] MEDS: BABY ASPIRIN PO SCH ×2 (09:41→09:47)
[2019-03-09] MEDS: HEPARIN SUB-Q SCH (09:41)
[2019-03-09] MEDS: PROTONIX PO SCH (09:41)
[2019-03-09] MEDS: COLACE PO SCH (09:44)
[2019-03-09] MEDS: FLONASE NS SCH (10:00)
[2019-03-09] MEDS: SODIUM CHLORIDE FLUSH SYRINGE 10 ML IV SCH (10:32)
[2019-03-09] MEDS: CLARITIN PO SCH (10:33)
--- NOTE | 2019-03-09 10:34 | Consultation ---
History of Present Illness Consult date: 03/09/19 Consult reason: syncope History of present illness: Patient is a frail 68 year old woman with a history of COPD, right upper lobe lung mass status post lobectomy January 2019. Patient was brought to the hospital after she was found unresponsive by family members, admitted with syncope. Patient reports chest pain prior to the event, that has been intermittent for several days. Patient relates chest pain to chronic lung disease and coughs. Further evaluation with a chest CTA suggests pneumonia. No evidence of PE. Patient is [facility] to [facility]. He has a history of non-obstructive CAD, EF of 50% by cardiac cath done a year ago. She had a stress thallium test in August that showed no ischemia. ECG reveals SR with prolonged QTc. No significant change from prior ECGs. Past History Past Medical History: CAD (non obstructive), cancer (Lung s/p ), COPD (on use 2.5-3L oxygen), GERD Past Surgical History: Other (lobectomy 01/2019; cardiac cath 03/2018) Social history: lives with family, other (former smoker) Family history: no significant family history Medications and Allergies Allergies Allergy/AdvReac Type Severity Reaction Status Date / Time erythromycin base Allergy Rash Verified 09/22/18 11:48 [Erythromycin Base] Penicillins Allergy Shortness Verified 09/22/18 11:48 of Breath Home Medications Medication Instructions Recorded Confirmed Last Taken Type Albuterol Sulfate [Ventolin HFA] 1 puff IH Q4H PRN 03/17/18 03/07/19 Unknown History Gabapentin [Neurontin] 300 mg PO BID 03/17/18 03/07/19 2 Days Ago History ~03/05/19 Ipratropium/Albuterol Sulfate 0.5 mg IH Q6H 03/17/18 03/07/19 2 Days Ago History [DUONEB *Not for PRN Use*] ~03/05/19 Oxybutynin [Ditropan] 5 mg PO BID 03/17/18 03/07/19 2 Days Ago History ~03/05/19 tiZANidine [Zanaflex 4mg TAB] 4 mg PO DAILY 03/17/18 03/07/19 2 Days Ago History ~03/05/19 HYDROcodone/APAP 5-325 [[place] 1 each PO Q6HR PRN #14 tablet 04/02/18 03/07/19 Unknown Rx 5-325 mg TAB] Carafate 1 gm PO TID 03/07/19 03/07/19 2 Days Ago History ~03/05/19 Flonase 50 mcg IH DAILY 03/07/19 03/07/19 2 Days Ago History ~03/05/19 Fluticasone/Salmeterol [Advair 250 mg IH DAILY 03/07/19 03/07/19 2 Days Ago History Diskus 250-50 mcg] ~03/05/19 Loratadine 10 mg PO DAILY 03/07/19 03/07/19 2 Days Ago History ~03/05/19 Omeprazole 40 mg PO DAILY 03/07/19 03/07/19 2 Days Ago History ~03/05/19 Robaxin 500 mg PO QID 03/07/19 03/07/19 2 Days Ago History ~03/05/19 Silenor 6 mg PO QHS 03/07/19 03/07/19 2 Days Ago History ~03/05/19 oxyCODONE /ACETAMINOPHEN [Percocet 7.5 mg PO Q6HR PRN 03/07/19 03/07/19 2 Days Ago History 5/325] ~03/05/19 Active Meds: Active Medications Acetaminophen (Tylenol) 650 mg PO Q4H PRN PRN Reason: Pain MILD(1-3)/Fever >100.5/[place] Acetaminophen/Hydrocodone Bitart ([place] 10/325) 1 each PO Q4H PRN PRN Reason: Pain , Severe (7-10) Albuterol (Proventil) 2.5 mg IH Q3HRT PRN PRN Reason: Shortness Of Breath Last Admin: 03/07/19 05:00 Dose: 2.5 mg Documented by: Albuterol/Ipratropium (Duoneb *Not For Prn Use*) 1 ampul IH Q6H [facility] Last Admin: 03/09/19 07:58 Dose: Not Given Documented by: Arformoterol Tartrate (Brovana Nebu) 15 mcg IH Q12HRT [facility] Last Admin: 03/09/19 07:57 Dose: 15 mcg Documented by: Atorvastatin Calcium (Lipitor) 40 mg PO QHS [facility] Last Admin: 03/08/19 21:22 Dose: 40 mg Documented by: Budesonide (Pulmicort) 0.5 mg IH Q12HRT [facility] Last Admin: 03/09/19 07:57 Dose: 0.5 mg Documented by: Diphenhydramine HCl (Benadryl) 25 mg PO QHS PRN PRN Reason: Sleep Last Admin: 03/07/19 23:35 Dose: 25 mg Documented by: Docusate Sodium (Colace) 100 mg PO BID [facility] Last Admin: 03/09/19 09:44 Dose: 100 mg Documented by: Fluticasone Propionate (Flonase) 50 mcg NS QDAY [facility] Last Admin: 03/09/19 10:00 Dose: 50 mcg Documented by: Heparin Sodium (Porcine) (Heparin) 5,000 unit SUB-Q Q12HR [facility] Last Admin: 03/09/19 09:41 Dose: 5,000 unit Documented by: Levofloxacin/Dextrose (Levaquin 500mg/100ml) 500 mg in 100 mls @ 100 mls/hr IV Q24HR [facility]; Protocol Last Admin: 03/09/19 09:41 Dose: 100 mls/hr Documented by: Loratadine (Claritin) 10 mg PO DAILY [facility] Last Admin: 03/08/19 11:58 Dose: 10 mg Documented by: Methocarbamol (Robaxin) 500 mg PO QID [facility] Last Admin: 03/09/19 09:40 Dose: 500 mg Documented by: Miscellaneous Medication (Silenor) 6 mg PO QHS [facility] Ondansetron HCl (Zofran) 4 mg IV Q8H PRN PRN Reason: Nausea And Vomiting Last Admin: 03/09/19 10:00 Dose: 4 mg Documented by: Oxycodone/Acetaminophen (Percocet 5/325) 1 tab PO Q6H PRN PRN Reason: Pain, Moderate (4-6) Last Admin: 03/09/19 10:00 Dose: 1 tab Documented by: Pantoprazole Sodium (Protonix) 40 mg PO DAILY [facility] Last Admin: 03/09/19 09:41 Dose: 40 mg Documented by: Sodium Chloride (Sodium Chloride Flush Syringe 10 Ml) 10 ml IV BID [facility] Last Admin: 03/08/19 21:45 Dose: 10 ml Documented by: Sodium Chloride (Sodium Chloride Flush Syringe 10 Ml) 10 ml IV PRN PRN PRN Reason: LINE FLUSH Sucralfate (Carafate) 1 gm PO TID [facility] Last Admin: 03/09/19 09:40 Dose: 1 gm Documented by: Physical Examination Vital Signs Temp Pulse Resp BP Pulse Ox 98.2 F 95 H 19 123/72 96 03/06/19 23:22 03/06/19 23:22 03/06/19 23:22 03/06/19 23:22 03/06/19 23:22 General appearance: no acute distress, cachectic HEENT: Positive: PERRL Neck: Positive: trachea midline Cardiac: Positive: Reg Rate and Rhythm Lungs: Positive: Decreased Breath Sounds Neuro: Positive: Grossly Intact Extremities: Absent: edema Results 03/08/19 04:03 03/08/19 04:03 Assessment and Plan Syncope Pneumonia Hypertension Hx of COPD Hx of RUL mass s/p lobectomy 01/2019 Non-obstructive CAD by LHC 03/2018 no ischemia by MPI 08/2018 Non-ischemic cardiomyopathy EF 35-40% by echo
[2019-03-09] MEDS ORDERED: K-DUR PO ONE (11:50)
[2019-03-09 12:15] VITALS: BP 119/59
--- NOTE | 2019-03-09 13:29 | Progress Note ---
Assessment and Plan 68 y/o female with known COPD, s/p lobectomy for lung CA admitted with altered mental state. 1. patient does not currently appear to be in a COPD exacerbation. 2. Unsure of cause of altered mental state given history 3. Follow up cardiac recommendations. Subjective Date of service: 03/09/19 Interval history: No acute events. Pulm status remains stable and unchanged. Objective Vital Signs - 12hr 03/09/19 03/09/19 03/09/19 01:55 02:00 03:30 Temperature 97.8 F Pulse Rate 88 102 H Pulse Rate [ 84 Anterior] Respiratory 19 Rate Respiratory 17 Rate [Anterior] Blood Pressure 119/56 Blood Pressure [Left] O2 Sat by Pulse 99 Oximetry 03/09/19 03/09/19 03/09/19 07:59 08:00 08:36 Temperature 98.8 F Pulse Rate 77 99 H Pulse Rate [ 77 Anterior] Respiratory 18 Rate Respiratory 18 Rate [Anterior] Blood Pressure 149/68 Blood Pressure [Left] O2 Sat by Pulse 95 99 Oximetry 03/09/19 12:14 Temperature Pulse Rate 80 Pulse Rate [ Anterior] Respiratory Rate Respiratory Rate [Anterior] Blood Pressure Blood Pressure 119/59 [Left] O2 Sat by Pulse Oximetry Constitutional: no acute distress, alert Eyes: non-icteric ENT: oropharynx moist Neck: supple Effort: normal Ascultation: Bilateral: diminished breath sounds (but clear) Percussion: Bilateral: not dull Tactile fremitus: Bilateral: normal Cardiovascular: regular rate and rhythm Gastrointestinal: soft Extremities: pink and warm Neurologic: normal mental status, non-focal exam CBC and BMP: 03/08/19 04:03 03/08/19 04:03 ABG, PT/INR, D-dimer: PT/INR, D-dimer PT 13.8 Sec. (12.2-14.9) 03/06/19 23:48 INR 1.09 (0.87-1.13) 03/06/19 23:48 1662.84 ng/mlDDU (0-234) H 03/06/19 23:48 Abnormal lab findings: Abnormal Labs 03/06/19 03/06/19 03/06/19 23:48 23:48 23:48 Lymph % (Auto) 6.3 L [place] % (Auto) Eos % (Auto) Lymph # 0.6 L Seg Neutrophils % 88.3 H Seg Neutrophils # 9.0 H D-Dimer 1662.84 H Chloride Carbon Dioxide 21 L BUN Creatinine 0.4 L Glucose 169 H Magnesium AST Albumin 03/06/19 03/08/19 03/08/19 23:48 04:03 04:03 Lymph % (Auto) [place] % (Auto) 10.2 H Eos % (Auto) 5.6 H Lymph # Seg Neutrophils % Seg Neutrophils # D-Dimer Chloride 107.4 H Carbon Dioxide BUN 6 L Creatinine 0.4 L Glucose Magnesium AST 71 H Albumin 3.7 L 03/09/19 11:21 Lymph % (Auto) [place] % (Auto) Eos % (Auto) Lymph # Seg Neutrophils % Seg Neutrophils # D-Dimer Chloride Carbon Dioxide BUN Creatinine Glucose Magnesium 1.60 L AST Albumin
--- NOTE | 2019-03-09 14:43 | Discharge Summary ---
Providers - Providers Date of Admission: 03/07/19 04:18 Date of discharge: 03/09/19 Attending physician: CARMINE CARCAMO 03/07/19 06:12 Consult to Physician [CONS] Routine Comment: Consulting Provider: NIVIA DENNY Physician Instructions: Reason For Exam: PNA, hx lung ca s/p lobectomy, copd, former smoker 03/08/19 09:42 Consult to Physician [CONS] Routine Comment: Consulting Provider: CARMEN NUGENT Physician Instructions: Reason For Exam: syncope, ?cardiac arrest Primary care physician: SPRAY PAINTER HELPER Hospitalization Condition: Stable Hospital course: Patient is a 68-year-old woman with a history of prior tobacco dependency, COPD on continuous supplemental oxygen, non-obstructive coronary artery disease, lung cancer status post lobectomy at [facility] in 01/2019 (she was told no further treatment needed because they got all the cancer), GERD who presents to [facility] ED via EMS with complaints of altered mental status and possible cardiac arrest vs syncope. She was noted by family to turn blue and unconscious. The family performed 1-2 minutes of CPR, the son did not check her pulse. The patient regained consciousness before EMS arrived. It is also unclear if the patient had cardiac arrest at that time as pulse was not checked. Differential diagnoses include cyanotic/hypoxic events, cardiac arrest, Admitted for pneumonia, AMS, ?cardiac arrest hence admission, found to have pneumonia. Patient will be monitored on telemetry to monitor for arrhythmia. Patient also admits to having CP for several days, and had CP right before the event. Troponin negative x 3 * pCXR: No Acute abnormalities * CT Head IMPRESSION: Mild sphenoid sinus disease. * CTA Chest FINDINGS: Postsurgical change at the right apex with associated volume loss and masslike consolidation now measures 3.9 x 5.1 cm (previously 4.7 x 6 cm). Adjacent fluid and apical soft tissue thickening has improved as well. There is now nodularity at the adjacent lung within the superior segment of the right lower lobe and within the right lower lobe dependently. Milder changes is present at the left lower lobe. Mediastinal nodes at the AP window and subcarinal region are unchanged. Hilar nodes have improved. The largest node (series 3, image 239) has decreased in size from 1.8-1.2 cm. Negative for aneurysm, dissection or pulmonary embolus. Imaging of the upper abdomen is unremarkable. IMPRESSION: 1. Negative for pulmonary embolus. 2. Postsurgical change and masslike consolidation at the upper lobe on the right has improved. Hilar adenopathy is also improved. 3. Patchy consolidation bilaterally right greater than left. Superimposed pneumonia is favored. Pneumonia -CT angiogram chest revealed: Patchy consolidation bilaterally right greater than left. Superimposed pneumonia is favored -No leukocytes -Blood Cultures Pending -home with oral Levaquin allergy to PCN and erythromycin Acute metabolic encephalopathy, poa -Afebrile -Neuro checks -Continue supportive care Syncope, vasovagal -Witnessed syncopal episode -Troponin neg x2, will continue to trend x1 -Bilateral carotid doppler reviewed Chest pains with history of CAD -Stress test in am -treat with ASA, Non Obstructing CAD -s/p cardiac cath 03/2018 -Echo pending -Start ASA and statin COPD, no acute flare -Pulmonology following Elevated D-Dimer -1662.84 -CTA negative for PE COPD with chronic hypoxic respiratory failure -On continuous 2.5-3L supplemental oxygen -Scheduled Pulmicort and albuterol when necessary -Continue to monitor saturation Hx Lung Cancer, s/p right upper lobectomy for localized lung cancer - in remission -s/p lobectomy 01/2019 Essential (primary) Hypertension, Controlled Cardiomyopathy, Unspecified -EF 40-45% by echo 03/2018 -Cath 03/2018 - non-obstructive coronary artery disease (30% LAD and RCA) -MPI Aug 2018 - No ischemia, LVEF 56% -LVEF 35-40% by echo this admission -Avoid ACEi or ARB due to previous history of hypotension Abnormal Electrocardiogram/Prolonged QT -Diffuse T wave inversions -prolonged QT interval Disposition: DC-01 TO HOME OR SELFCARE Time spent for discharge: 32 minutes Core Measure Documentation - Palliative Care Palliative Care/ Comfort Measures: Not Applicable - Core Measures Any of the following diagnoses?: none - VTE Discharge Requirements Deep Vein Thrombosis/Pulmonary Embolism Present on Admission: No Has pt received <5 days of overlap therapy or INR<2.0: No Anticoagulant overlap therapy prescribed at discharge: No Contraindication No Overlap Therapy order at DC: Not Indicated Exam - Physical Exam Narrative exam: Gen: WDWN, NAD, Awake, Alert, Orientated HEENT: NCAT, EOMI, PERRL, OP Clear Neck: supple, no adenopathy, no thyromegaly, no JVD CVS/Heart: RRR, normal S1S2, pulses present bilaterally Chest/Lungs: CTA B, Symmetrical chest expansion, good air entry bilaterally GI/Abdomen: soft, NTND, good bowel sounds, no guarding or rebound /Bladder: no suprapubic tenderness, no CVA or paraspinal tenderness Extermity/Skin: no c/c/e, no obvious rash MSK: FROM x 4 Neuro: CN 2-12 grossly intact, no new focal deficits Psych: calm - Constitutional Vitals: Temp Pulse Resp BP Pulse Ox 98.8 F 80 18 119/59 99 03/09/19 08:36 03/09/19 12:14 03/09/19 08:36 03/09/19 12:14 03/09/19 08:36 Plan Activity: other (no strenous activity) Diet: low salt Follow up with: CARMEN NUGENT MD [Staff Physician] - 7 Days PRIMARY CARE, [Primary Care Provider] - 3-5 Days Prescriptions: levoFLOXacin [Levaquin] 750 mg PO QDAY #5 tablet Metoprolol Xl [Metoprolol SUCCINATE ER TAB] 25 mg PO QDAY #30 tablet
[2019-03-09] MEDS: PROVENTIL IH PRN (15:51)
[2019-03-09] MEDS ORDERED: MAGNESIUM SULFATE 2GM/50ML 2 GM/50 ML BAG IV ONE (18:56)
[2019-03-10] MEDS ORDERED: TOPROL XL PO SCH (10:00)
== END 2019-03-09 17:40 | disposition home health service (06) | DRG 70 ==
LOC: ED 22:59 → 4A 03-07 04:18
PROVIDERS: ADMIT Internal Medicine; ATTEND Internal Medicine
DX: G93.41 Metabolic encephalopathy (principal); J18.9 Pneumonia, unspecified organism; I42.9 Cardiomyopathy, unspecified; J96.11 Chronic respiratory failure with hypoxia; R55 Syncope and collapse; I25.10 Atherosclerotic heart disease of native coronary artery without angina pectoris; J44.9 Chronic obstructive pulmonary disease, unspecified; K21.9 Gastro-esophageal reflux disease without esophagitis; R94.31 Abnormal electrocardiogram [ECG] [EKG]; R91.1 Solitary pulmonary nodule; I11.0 Hypertensive heart disease with heart failure; M19.90 Unspecified osteoarthritis, unspecified site; I50.9 Heart failure, unspecified; G89.29 Other chronic pain; Z85.118 Personal history of other malignant neoplasm of bronchus and lung; Z99.81 Dependence on supplemental oxygen; Z88.0 Allergy status to penicillin; Z88.1 Allergy status to other antibiotic agents; Z79.899 Other long term (current) drug therapy; I25.2 Old myocardial infarction
CPT/HCPCS: 36415; 70450; 71045; 71275; 80048; 80061; 80076; 81001; 83735; 84484; 85025; 85379; 85610; 85730; 87040; 93005; 93010; 93306; 93880; 94640; 94644; 94760; 96361; 96374; 96375; G0378; A9270-GY; J1644; J1956; J2270; J2405; J2785; J3475; J7030; Q9967

== ENCOUNTER 2020-07-31 02:12 | Observation (INO) | payer MEDICARE ==
[2020-07-31] MEDS ORDERED: SODIUM CHLORIDE 0.9% 1000 ML IV SOLN IV ONE (02:36)
[2020-07-31] MEDS ORDERED: SODIUM CHLORIDE 0.9% 1000 ML 1,000 ML IV ONE (02:47)
[2020-07-31] MEDS ORDERED: ACETAMINOPHEN 325 MG TAB PO ONE (02:47)
--- NOTE | 2020-07-31 03:12 | Emergency Department Report ---
ED Shortness of Breath HPI - General Chief Complaint: Dyspnea/Respdistress Stated Complaint: SOB Time Seen by Provider: 07/31/20 02:34 Source: patient, EMS Mode of arrival: Stretcher Limitations: No Limitations - History of Present Illness Initial Comments: 69-year-old female with a past medical history of COPD with 2 L home oxygen use as needed, lung CA treated with right lobectomy in 2017 without chemo or radiation, CHF with EF of 34 to 40% and diastolic dysfunction as per echo here from February 2019, CAD, and hypertension presents to the hospital complaining of sudden onset of fever and generalized weakness since 6:30 PM. Patient reports increased shortness of breath with increased bronchodilator use for the past 1 week. Occasional dry cough reported. Patient denies loss of sense of taste or smell. Tonight around 6:30 PM patient got up to go to be bathroom but was too weak to get up and had a fever just over 102. She presents with tachycardia current palpitations or chest pain. She also denies history of PE/DVT, calf tenderness, or leg edema. She last tested negative for Covid in April 2020 and has not had a more recent test. She denies known Covid exposures. She denies previous intubations. Triage states that patient ran out of home O2 which patient denies. As per triage patient remained saturation was 92% upon their arrival to the home. Maintenance Shop Technician: Dr. Pavon - Related Data Home Medications Medication Instructions Recorded Confirmed Last Taken Albuterol Sulfate [Ventolin HFA] 1 puff IH Q4H PRN 03/17/18 03/07/19 Unknown Gabapentin 300 mg PO BID 03/17/18 03/07/19 2 Days Ago ~03/05/19 Ipratropium/Albuterol Sulfate 0.5 mg IH Q6H 03/17/18 03/07/19 2 Days Ago [DUONEB *Not for PRN Use*] ~03/05/19 Oxybutynin [Ditropan] 5 mg PO BID 03/17/18 03/07/19 2 Days Ago ~03/05/19 Carafate 1 gm PO TID 03/07/19 03/07/19 2 Days Ago ~03/05/19 Flonase 50 mcg IH DAILY 03/07/19 03/07/19 2 Days Ago ~03/05/19 Fluticasone/Salmeterol [Advair 250 mg IH DAILY 03/07/19 03/07/19 2 Days Ago Diskus 250-50 mcg] ~03/05/19 Loratadine 10 mg PO DAILY 03/07/19 03/07/19 2 Days Ago ~03/05/19 Omeprazole 40 mg PO DAILY 03/07/19 03/07/19 2 Days Ago ~03/05/19 Silenor 6 mg PO QHS 03/07/19 03/07/19 2 Days Ago ~03/05/19 oxyCODONE /ACETAMINOPHEN [Percocet 7.5 mg PO Q6HR PRN 03/07/19 03/07/19 2 Days Ago 5/325 mg] ~03/05/19 Previous Rx's Medication Instructions Recorded Last Taken Type HYDROcodone/APAP 5-325 [[place] 1 each PO Q6HR PRN #14 tablet 04/02/18 Unknown Rx 5-325 mg TAB] Acetaminophen [Acetaminophen TAB] 2 tab PO Q4H PRN #15 tablet 03/09/19 Unknown Rx Metoprolol Xl [Metoprolol 25 mg PO QDAY #30 tablet 03/09/19 Unknown Rx SUCCINATE ER TAB] levoFLOXacin [Levaquin] 750 mg PO QDAY #5 tablet 03/09/19 Unknown Rx methOCARBAMOL [Robaxin TAB] 500 mg PO QID #60 tablet 03/09/19 Unknown Rx Allergies Allergy/AdvReac Type Severity Reaction Status Date / Time erythromycin base Allergy Rash Verified 09/22/18 11:48 [Erythromycin Base] hydromorphone [From Dilaudid] Allergy Vomiting Verified 07/31/20 02:29 Penicillins Allergy Shortness Verified 09/22/18 11:48 of Breath ED Review of Systems ROS: Stated complaint: SOB Other details as noted in HPI Comment: All other systems reviewed and negative ED Past Medical Hx - Past Medical History Hx Hypertension: Yes Hx Heart Attack/AMI: Yes Hx Congestive Heart Failure: Yes Hx Deep Vein Thrombosis: No Hx Pulmonary Embolism: No Hx Arthritis: Yes Hx Asthma: Yes Hx COPD: Yes Hx Tuberculosis: No Hx HIV: No Additional medical history: angina. lung CA. chronic pain - Surgical History Hx Coronary Stent: No Hx Pacemaker: No Hx Internal Defibrillator: No Additional Surgical History: [place] cataract surgery. right lobectomy - Social History Smoking Status: Former Smoker Substance Use Type: None - Medications Home Medications: Home Medications Medication Instructions Recorded Confirmed Last Taken Type Albuterol Sulfate [Ventolin HFA] 1 puff IH Q4H PRN 03/17/18 03/07/19 Unknown History Gabapentin 300 mg PO BID 03/17/18 03/07/19 2 Days Ago History ~03/05/19 Ipratropium/Albuterol Sulfate 0.5 mg IH Q6H 03/17/18 03/07/19 2 Days Ago History [DUONEB *Not for PRN Use*] ~03/05/19 Oxybutynin [Ditropan] 5 mg PO BID 03/17/18 03/07/19 2 Days Ago History ~03/05/19 HYDROcodone/APAP 5-325 [[place] 1 each PO Q6HR PRN #14 tablet 04/02/18 03/07/19 Unknown Rx 5-325 mg TAB] Carafate 1 gm PO TID 03/07/19 03/07/19 2 Days Ago History ~03/05/19 Flonase 50 mcg IH DAILY 03/07/19 03/07/19 2 Days Ago History ~03/05/19 Fluticasone/Salmeterol [Advair 250 mg IH DAILY 03/07/19 03/07/19 2 Days Ago History Diskus 250-50 mcg] ~03/05/19 Loratadine 10 mg PO DAILY 03/07/19 03/07/19 2 Days Ago History ~03/05/19 Omeprazole 40 mg PO DAILY 03/07/19 03/07/19 2 Days Ago History ~03/05/19 Silenor 6 mg PO QHS 03/07/19 03/07/19 2 Days Ago History ~03/05/19 oxyCODONE /ACETAMINOPHEN [Percocet 7.5 mg PO Q6HR PRN 03/07/19 03/07/19 2 Days Ago History 5/325 mg] ~03/05/19 Acetaminophen [Acetaminophen TAB] 2 tab PO Q4H PRN #15 tablet 03/09/19 Unknown Rx Metoprolol Xl [Metoprolol 25 mg PO QDAY #30 tablet 03/09/19 Unknown Rx SUCCINATE ER TAB] levoFLOXacin [Levaquin] 750 mg PO QDAY #5 tablet 03/09/19 Unknown Rx methOCARBAMOL [Robaxin TAB] 500 mg PO QID #60 tablet 03/09/19 Unknown Rx ED Physical Exam - General Limitations: No Limitations - Other Other exam information: General: No acute distress Head: Atraumatic Eyes: normal appearance ENT: Moist mucous membranes Neck: Normal appearance, no midline tenderness Chest: Clear to auscultation bilaterally, no accessory muscle use mild tachypnea CV: Tachycardic regular rhythm Abdomen: Soft, normal bowel sounds, nontender, nondistended, no rebound or guarding Back: Normal inspection Extremity: Normal inspection, full range of motion, no calf tenderness or leg edema Neuro: Alert O x 3, no facial asymmetry, speech clear, no gross motor sensory deficit Psych: Appropriate behavior Skin: No rash ED Course Vital Signs 07/31/20 07/31/20 07/31/20 02:20 02:27 02:28 Temperature 99.9 F H Pulse Rate 134 H 133 H Respiratory 25 H 24 Rate Blood Pressure 115/68 O2 Sat by Pulse 97 97 Oximetry 07/31/20 03:39 Temperature Pulse Rate Respiratory 18 Rate Blood Pressure O2 Sat by Pulse Oximetry ED Medical Decision Making - Lab Data Result diagrams: 07/31/20 02:53 07/31/20 02:53 Lab Results 07/31/20 07/31/20 07/31/20 Range/Units 02:53 02:53 02:53 WBC 12.3 H (4.5-11.0) K/mm3 RBC 4.11 (3.65-5.03) M/mm3 Hgb 12.9 (10.1-14.3) gm/dl Hct 38.8 (30.3-42.9) % MCV 94 (79-97) fl MCH 31 (28-32) pg MCHC 33 (30-34) % RDW 14.4 (13.2-15.2) % Plt Count 266 (140-440) K/mm3 Lymph % (Auto) 5.7 L (13.4-35.0) % [place] % (Auto) 5.1 (0.0-7.3) % Eos % (Auto) 0.7 (0.0-4.3) % Baso % (Auto) 0.6 (0.0-1.8) % Lymph # (Auto) 0.7 L (1.2-5.4) K/mm3 [place] # (Auto) 0.6 (0.0-0.8) K/mm3 Eos # (Auto) 0.1 (0.0-0.4) K/mm3 Baso # (Auto) 0.1 (0.0-0.1) K/mm3 Seg Neutrophils % 87.9 H (40.0-70.0) % Seg Neutrophils # 10.8 H (1.8-7.7) K/mm3 PT (12.2-14.9) Sec. INR (0.87-1.13) D-Dimer (0-234) ng/mlDDU Sodium 141 (137-145) mmol/L Potassium 3.9 (3.6-5.0) mmol/L Chloride 104.7 (98-107) mmol/L Carbon Dioxide 22 (22-30) mmol/L Anion Gap 18 mmol/L BUN 14 (7-17) mg/dL Creatinine 0.8 (0.6-1.2) mg/dL Estimated GFR > 60 ml/min BUN/Creatinine Ratio 18 % Glucose 122 H (65-100) mg/dL Lactic Acid 1.40 (0.7-2.0) mmol/L Calcium 9.5 (8.4-10.2) mg/dL Total Bilirubin 0.80 (0.1-1.2) mg/dL AST 12 (5-40) units/L ALT 12 (7-56) units/L Alkaline Phosphatase 71 (35-129) units/L Total Protein 6.4 (6.3-8.2) g/dL Albumin 4.0 (3.9-5) g/dL Albumin/Globulin Ratio 1.7 % TSH (0.270-4.200) mlU/mL Free T4 (0.76-1.46) ng/dL Urine Color (Yellow) Urine Turbidity (Clear) Urine pH (5.0-7.0) Ur Specific [place] (1.003-1.030) Urine Protein (Negative) mg/dL Urine Glucose (UA) (Negative) mg/dL Urine Ketones (Negative) mg/dL Urine Blood (Negative) Urine Nitrite (Negative) Urine Bilirubin (Negative) Urine Urobilinogen (<2.0) mg/dL Ur Leukocyte Esterase (Negative) Urine WBC (Auto) (0.0-6.0) /HPF Urine RBC (Auto) (0.0-6.0) /HPF Urine Mucus /HPF 07/31/20 07/31/20 07/31/20 Range/Units 02:53 02:55 03:36 WBC (4.5-11.0) K/mm3 RBC (3.65-5.03) M/mm3 Hgb (10.1-14.3) gm/dl Hct (30.3-42.9) % MCV (79-97) fl MCH (28-32) pg MCHC (30-34) % RDW (13.2-15.2) % Plt Count (140-440) K/mm3 Lymph % (Auto) (13.4-35.0) % [place] % (Auto) (0.0-7.3) % Eos % (Auto) (0.0-4.3) % Baso % (Auto) (0.0-1.8) % Lymph # (Auto) (1.2-5.4) K/mm3 [place] # (Auto) (0.0-0.8) K/mm3 Eos # (Auto) (0.0-0.4) K/mm3 Baso # (Auto) (0.0-0.1) K/mm3 Seg Neutrophils % (40.0-70.0) % Seg Neutrophils # (1.8-7.7) K/mm3 PT 13.9 (12.2-14.9) Sec. INR 1.09 (0.87-1.13) D-Dimer 1486.43 H (0-234) ng/mlDDU Sodium (137-145) mmol/L Potassium (3.6-5.0) mmol/L Chloride (98-107) mmol/L Carbon Dioxide (22-30) mmol/L Anion Gap mmol/L BUN (7-17) mg/dL Creatinine (0.6-1.2) mg/dL Estimated GFR ml/min BUN/Creatinine Ratio % Glucose (65-100) mg/dL Lactic Acid (0.7-2.0) mmol/L Calcium (8.4-10.2) mg/dL Total Bilirubin (0.1-1.2) mg/dL AST (5-40) units/L ALT (7-56) units/L Alkaline Phosphatase (35-129) units/L Total Protein (6.3-8.2) g/dL Albumin (3.9-5) g/dL Albumin/Globulin Ratio % TSH 0.656 (0.270-4.200) mlU/mL Free T4 1.21 (0.76-1.46) ng/dL Urine Color Yellow (Yellow) Urine Turbidity Cloudy (Clear) Urine pH 7.0 (5.0-7.0) Ur Specific [place] 1.013 (1.003-1.030) Urine Protein 100 mg/dl (Negative) mg/dL Urine Glucose (UA) Neg (Negative) mg/dL Urine Ketones Neg (Negative) mg/dL Urine Blood Sm (Negative) Urine Nitrite Neg (Negative) Urine Bilirubin Neg (Negative) Urine Urobilinogen < 2.0 (<2.0) mg/dL Ur Leukocyte Esterase Lg (Negative) Urine WBC (Auto) > 182.0 H (0.0-6.0) /HPF Urine RBC (Auto) 10.0 (0.0-6.0) /HPF Urine Mucus Few /HPF - EKG Data -: EKG Interpreted by Nh EKG shows normal: sinus rhythm, ST-T waves (No STEMI) Rate: tachycardia (Sinus tach 118) - Radiology Data Radiology results: report reviewed CXR: NAF CTA CHEST WITH IV CONTRAST INDICATION: S.O.B., fever, elevated D-dimer, Hx of lung cancer CONTRAST: 100 cc Omnipaque 350 IV COMPARISON: 03/07/2019 Three-plane MIP reconstructions were produced. All CT scans at this location are performed using CT dose reduction for ALARA by means of automated exposure control. FINDINGS: No significant focal bony lesions are seen. No significant axillary or chest wall abnormalities are noted. Visualized portions of the upper abdomen show fatty infiltration of the liver. No adrenal lesions are seen. No acute abdominal abnormalities are noted. Coronary artery calcifications are seen. No mediastinal or hilar masses are seen. Partly fluid- filled esophagus could relate to gastroesophageal reflux but no obvious wall thickening is seen. No significant pleural effusions are noted. No pneumothorax or pneumomediastinum are seen. No obvious endobronchial lesions are noted. Peripheral density in the right middle lobe laterally is stable. Previous patchy interstitial infiltrates and right upper lobe density are no longer obvious with scarring now seen in the right upper lobe. Mild bibasilar atelectatic changes are seen. No definite areas of acute pneumonitis are noted. Aorta shows no aneurysmal dilatation or evidence of dissection. Good opacification of the pulmonary arterial system was achieved. I do not see evidence of pulmonary thromboembolism. IMPRESSION: No significant acute abnormalities are seen - Medical Decision Making 69-year-old female presents to the hospital complaints of shortness of breath with cough x1 week an episode of fever and generalized weakness today. Patient was placed in respiratory isolation for suspected Covid given respiratory symptoms and reported fever. Chest x-ray and CTA chest do not reveal infiltrate or pulmonary embolism. Breath sounds clear on examination. UA positive for infection. Shortness of breath likely secondary to COPD with chronic hypoxia and O2 dependence without acute pulmonary infection identified. Patient fever and generalized weakness but did secondary to UTI with signs of sepsis. Patient did receive IV Levaquin. Cultures pending. no signs of septic shock or elevated lactic acid therefore patient did not receive 30 mL/kg IV fluid bolus. Patient also has a known history of CHF and reduced ejection fraction. Critical Care Time: No Critical care attestation.: If time is entered above; I have spent that time in minutes in the direct care of this critically ill patient, excluding procedure time. ED Disposition Clinical Impression: UTI (urinary tract infection), Sepsis, COPD exacerbation, Oxygen dependent Disposition: DC-09 OP ADMIT IP TO THIS HOSP Is pt being admited?: Yes Condition: Stable Instructions: Chronic Obstructive Pulmonary Disease (ED) Time of Disposition: 04:57 (Dr White/hosp)
[2020-07-31 03:16] LABS: Basophils # (Auto) 0.1 K/mm3 (0.0-0.1); Basophils % (Auto) 0.6 % (0.0-1.8); Eosinophils # (Auto) 0.1 K/mm3 (0.0-0.4); Eosinophils % (Auto) 0.7 % (0.0-4.3); Hematocrit 38.8 % (30.3-42.9); Hemoglobin 12.9 gm/dl (10.1-14.3); Lymphocytes # (Auto) 0.7 K/mm3 (1.2-5.4); Lymphocytes % (Auto) 5.7 % (13.4-35.0); Mean Corpuscular HGB Conc 33 % (30-34); Mean Corpuscular Volume 94 fl (79-97); Monocytes # (Auto) 0.6 K/mm3 (0.0-0.8); Monocytes % (Auto) 5.1 % (0.0-7.3); Platelet Count 266 K/mm3 (140-440); Red Blood Count 4.11 M/mm3 (3.65-5.03); Red Cell Distribution Width 14.4 % (13.2-15.2)
[2020-07-31 03:29] LABS: INR 1.09 (0.87-1.13)
[2020-07-31 03:34] LABS: Alanine Aminotransferase 12 units/L (7-56); BUN/Creatinine Ratio 18; Blood Urea Nitrogen 14 mg/dL (7-17); Calcium 9.5 mg/dL (8.4-10.2); Hemolysis Index 2
[2020-07-31 03:48] LABS: Free T4 (Free Thyroxine) 1.21 ng/dL (0.76-1.46)
[2020-07-31 03:58] LABS: Bilirubin,Urine NEG (Negative); Blood,Urine SM (Negative); Color,Urine Yellow (Yellow); Mucus,Urine FEW /HPF; Urobilinogen,Urine < 2.0 mg/dL (<2.0); WBC,Urine > 182.0 /HPF (0.0-6.0)
--- NOTE | 2020-07-31 04:00 | XRay Report ---
CHEST 1 VIEW 0330 INDICATION / CLINICAL INFORMATION: sob, fever at home COMPARISON: 03/06/2019 FINDINGS: SUPPORT DEVICES: None HEART / MEDIASTINUM: No significant abnormality. LUNGS / PLEURA: Slight left basilar atelectasis is seen. No definite acute pneumonic infiltrates are noted. Previous density in the right upper lobe has resolved. No pneumothorax. ADDITIONAL FINDINGS: No significant additional findings. IMPRESSION: No significant acute abnormality Signer Name: Wyatt Montes MD Signed: 07/31/2020 3:56 AM Workstation Name: [id number]
--- NOTE | 2020-07-31 04:48 | Cat Scan Report ---
CTA CHEST WITH IV CONTRAST INDICATION: S.O.B., fever, elevated D-dimer, Hx of lung cancer CONTRAST: 100 cc Omnipaque 350 IV COMPARISON: 03/07/2019 Three-plane MIP reconstructions were produced. All CT scans at this location are performed using CT d ose reduction for ALARA by means of automated exposure control. FINDINGS: No significant focal bony lesions are seen. No significant axillary or chest wall abnormali ties are noted. Visualized portions of the upper abdomen show fatty infiltration of the liver. No adr enal lesions are seen. No acute abdominal abnormalities are noted. Coronary artery calcifications are seen. No mediastinal or hilar masses are seen. Partly fluid-filled esophagus could relate to gastroe sophageal reflux but no obvious wall thickening is seen. No significant pleural effusions are noted. No pneumothorax or pneumomediastinum are seen. No obvious endobronchial lesions are noted. Peripheral density in the right middle lobe laterally is stable. Previous patchy interstitial infiltrates and r ight upper lobe density are no longer obvious with scarring now seen in the right upper lobe. Mild bi basilar atelectatic changes are seen. No definite areas of acute pneumonitis are noted. Aorta shows no aneurysmal dilatation or evidence of dissection. Good opacification of the pulmonary arterial system was achieved. I do not see evidence of pulmonary thromboembolism. IMPRESSION: No significant acute abnormalities are seen Signer Name: Wyatt Montes MD Signed: 07/31/2020 4:43 AM Workstation Name: [id number]
[2020-07-31] MEDS ORDERED: MAGNESIUM HYDROXIDE (MOM) ORAL LIQD UDC PO PRN (06:04)
[2020-07-31] MEDS ORDERED: ALBUTEROL 2.5 MG/3 ML NEBU IH PRN (06:04)
[2020-07-31] MEDS ORDERED: ONDANSETRON 4 MG/2 ML INJ IV PRN (06:04)
--- NOTE | 2020-07-31 06:25 | History and Physical Report ---
History of Present Illness Date of examination: 07/31/20 Date of admission: 07/31/20 05:05 Chief complaint: Fever Cough Shortness of breath History of present illness: 69-year-old female with known history of COPD on 2 L of oxygen at home, history of lung cancer treated with lobectomy 2017, CHF with ejection fraction of 35 to 40% with diastolic dysfunction on echo done in February 2019, coronary artery disease and hypertension presenting to the emergency room today complaining of generalized weakness and fever which started earlier this evening. Patient has had occasional dry cough and has also been using inhaler more frequently over the past 1 week. Generalized weakness got worse earlier this evening when going to the restroom. She has also had a fever of about 102 F. Upon arrival in the emergency room patient was tachycardic with some mild chest discomfort. O2 saturation was 92% on arrival. 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 She denies any sick contacts and no recent travel. She denies any contact with anyone with COVID-19. She tested negative for COVID-19 in April 2020. Work-up in the emergency room reveals UTI, D-dimer was elevated. CT angiogram did not reveal any pulmonary embolism or infiltrate. Past History Past Medical History: arthritis, CAD, COPD, heart failure, hypertension, other (History of lung cancer, chronic pain) Past Surgical History: Other (Bilateral cataracts, right lobectomy) Social history: smoking (Former smoker) Family history: no significant family history Medications and Allergies Allergies Allergy/AdvReac Type Severity Reaction Status Date / Time erythromycin base Allergy Rash Verified 09/22/18 11:48 [Erythromycin Base] hydromorphone [From Dilaudid] Allergy Vomiting Verified 07/31/20 02:29 Penicillins Allergy Shortness Verified 09/22/18 11:48 of Breath Home Medications Medication Instructions Recorded Confirmed Last Taken Type Albuterol Sulfate [Ventolin HFA] 1 puff IH Q4H PRN 03/17/18 03/07/19 Unknown History Gabapentin 300 mg PO BID 03/17/18 03/07/19 2 Days Ago History ~03/05/19 Ipratropium/Albuterol Sulfate 0.5 mg IH Q6H 03/17/18 03/07/19 2 Days Ago History [DUONEB *Not for PRN Use*] ~03/05/19 Oxybutynin [Ditropan] 5 mg PO BID 03/17/18 03/07/19 2 Days Ago History ~03/05/19 HYDROcodone/APAP 5-325 [[place] 1 each PO Q6HR PRN #14 tablet 04/02/18 03/07/19 Unknown Rx 5-325 mg TAB] Carafate 1 gm PO TID 03/07/19 03/07/19 2 Days Ago History ~03/05/19 Flonase 50 mcg IH DAILY 03/07/19 03/07/19 2 Days Ago History ~03/05/19 Fluticasone/Salmeterol [Advair 250 mg IH DAILY 03/07/19 03/07/19 2 Days Ago History Diskus 250-50 mcg] ~03/05/19 Loratadine 10 mg PO DAILY 03/07/19 03/07/19 2 Days Ago History ~03/05/19 Omeprazole 40 mg PO DAILY 03/07/19 03/07/19 2 Days Ago History ~03/05/19 Silenor 6 mg PO QHS 03/07/19 03/07/19 2 Days Ago History ~03/05/19 oxyCODONE /ACETAMINOPHEN [Percocet 7.5 mg PO Q6HR PRN 03/07/19 03/07/19 2 Days Ago History 5/325 mg] ~03/05/19 Acetaminophen [Acetaminophen TAB] 2 tab PO Q4H PRN #15 tablet 03/09/19 Unknown Rx Metoprolol Xl [Metoprolol 25 mg PO QDAY #30 tablet 03/09/19 Unknown Rx SUCCINATE ER TAB] levoFLOXacin [Levaquin] 750 mg PO QDAY #5 tablet 03/09/19 Unknown Rx methOCARBAMOL [Robaxin TAB] 500 mg PO QID #60 tablet 03/09/19 Unknown Rx Active Meds: Active Medications Acetaminophen (Acetaminophen 325 Mg Tab) 650 mg PO Q4H PRN PRN Reason: Pain MILD(1-3)/Fever >100.5/[place] Albuterol (Albuterol 2.5 Mg/3 Ml Nebu) 2.5 mg IH Q4HRT PRN PRN Reason: Shortness Of Breath Albuterol/Ipratropium (Ipratropium/Albuterol Sulfate 3 Ml Ampul.Neb) 1 ampul IH Q6HRT [facility] Levofloxacin/Dextrose (Levaquin 750mg/150ml) 750 mg in 150 mls @ 100 mls/hr IV Q24H [facility]; Protocol Magnesium Hydroxide (Magnesium Hydroxide (Mom) Oral Liqd Udc) 30 ml PO Q4H PRN PRN Reason: Constipation Methylprednisolone Sodium Succinate (Methylprednisolone Sod Succinate 40 Mg/1 Ml Inj) 40 mg IV Q8HR [facility] Ondansetron HCl (Ondansetron 4 Mg/2 Ml Inj) 4 mg IV Q8H PRN PRN Reason: Nausea And Vomiting Sodium Chloride (Sodium Chloride 0.9% 10 Ml Flush Syringe) 10 ml IV BID [facility] Sodium Chloride (Sodium Chloride 0.9% 10 Ml Flush Syringe) 10 ml IV PRN PRN PRN Reason: LINE FLUSH Review of Systems Constitutional: fever Ears, nose, mouth and throat: no nasal congestion, no sore throat Cardiovascular: no chest pain, no palpitations Respiratory: cough, shortness of breath Gastrointestinal: no abdominal pain, no nausea, no vomiting, no diarrhea Genitourinary Female: no pelvic pain, no flank pain, no hematuria Musculoskeletal: no neck pain, no low back pain Integumentary: no rash, no pruritis Neurological: no headaches, no confusion Psychiatric: no anxiety, no depression Exam - Constitutional Vitals: Temp Pulse Resp BP Pulse Ox 99.9 F H 102 H 24 111/61 98 07/31/20 02:20 07/31/20 05:15 07/31/20 05:15 07/31/20 05:15 07/31/20 05:15 General appearance: Present: no acute distress, well-nourished - EENT Eyes: Present: PERRL, EOM intact. Absent: scleral icterus ENT: hearing intact, clear oral mucosa, dentition normal - Neck Neck: Present: supple, normal ROM - Respiratory Respiratory effort: normal Respiratory: bilateral: CTA - Cardiovascular Rhythm: regular Heart Sounds: Present: S1 & S2. Absent: gallop, systolic murmur, diastolic murmur, rub, click - Extremities Extremities: no ischemia, pulses intact, pulses symmetrical, No edema, normal temperature, normal color, Full ROM Peripheral Pulses: within normal limits - Abdominal General gastrointestinal: Present: soft, non-tender, non-distended, normal bowel sounds. Absent: mass - Integumentary Integumentary: Present: clear, warm, dry. Absent: rash - Musculoskeletal Musculoskeletal: strength equal bilaterally - Psychiatric Psychiatric: appropriate mood/affect, intact judgment & insight, memory intact, cooperative - Neurologic Neurologic: CNII-XII intact, no focal deficits, moves all extremities Results - Labs CBC & Chem 7: 07/31/20 02:53 07/31/20 02:53 Labs: Abnormal lab results 07/31/20 07/31/20 07/31/20 Range/Units 02:53 02:53 02:53 WBC 12.3 H (4.5-11.0) K/mm3 Lymph % (Auto) 5.7 L (13.4-35.0) % Lymph # (Auto) 0.7 L (1.2-5.4) K/mm3 Seg Neutrophils % 87.9 H (40.0-70.0) % Seg Neutrophils # 10.8 H (1.8-7.7) K/mm3 D-Dimer 1486.43 H (0-234) ng/mlDDU Glucose 122 H (65-100) mg/dL Urine WBC (Auto) (0.0-6.0) /HPF 07/31/20 Range/Units 03:36 WBC (4.5-11.0) K/mm3 Lymph % (Auto) (13.4-35.0) % Lymph # (Auto) (1.2-5.4) K/mm3 Seg Neutrophils % (40.0-70.0) % Seg Neutrophils # (1.8-7.7) K/mm3 D-Dimer (0-234) ng/mlDDU Glucose (65-100) mg/dL Urine WBC (Auto) > 182.0 H (0.0-6.0) /HPF Assessment and Plan - Patient Problems (1) UTI (urinary tract infection) Current Visit: Yes Status: Acute Plan to address problem: Patient placed on empiric IV antibiotics. Will await culture results. (2) Acute exacerbation of COPD with asthma Current Visit: No Status: Acute Plan to address problem: Placed on nebulizing treatments and IV steroid. We will keep O2 saturation greater or equal to 94%. (3) Sepsis Current Visit: Yes Status: Acute Plan to address problem: Possibly secondary to underlying UTI. We will continue on antibiotics. (4) DVT prophylaxis Current Visit: No Status: Acute Plan to address problem: Patient placed on subcutaneous Lovenox. (5) Full code status Current Visit: Yes Status: Acute Plan to address problem: Patient is a full code.
--- NOTE | 2020-07-31 07:47 | Event Note ---
Date: 07/31/20 69-year-old female with known history of COPD on 2 L of oxygen at home, history of lung cancer treated with lobectomy 2017, CHF with ejection fraction of 35 to 40% with diastolic dysfunction on echo done in February 2019, coronary artery disease and hypertension presenting to the emergency room today complaining of generalized weakness and fever which started earlier this evening. Patient has had occasional dry cough and has also been using inhaler more frequently over the past 1 week. Generalized weakness got worse earlier this evening when going to the restroom. She has also had a fever of about 102 F. Obtain pulmonary and cardiac consultation due to patient's known history. Patient seen and examined, resting at 2l oxygen. No new fever.
[2020-07-31] MEDS: BUDESONIDE 0.5 MG/2 ML NEBU IH SCH ×3 (08:49→20:52)
[2020-07-31] MEDS: IPRATROPIUM/ALBUTEROL SULFATE 3 ML AMPUL.NEB IH SCH ×4 (08:49→20:53)
[2020-07-31] MEDS: ARFORMOTEROL 15 MCG/2 ML NEBU IH SCH ×3 (08:49→20:52)
--- NOTE | 2020-07-31 09:50 | Consultation ---
History of Present Illness - Reason for Consult Consult date: 07/31/20 R/o COVID Requesting physician: JOSÉ ANTONIO PINEDA - History of Present Illness 69 years old female with history of COPD on 2 L home oxygen, lung cancer, status post lobectomy 2018, CHF EF 35 to 40%, CAD, hypertension, admitted on 07/31/2020 secondary to a week history of cough, dry, and progressive generalized weakness and shortness of breath. Patient also noted a fever of 102 and decided to come to the ED. On arrival, temperature 99.9, HR 134, RR 25, O2 sat 97%, BP 115/68. Initial WBC 12.3. D-dimer 1486. Urinalysis 182 WBCs and large leukocyte esterase. Blood culture 07/31/2020 no growth today. O2 sats dropped to 92%. CTA no PE and no significant airspace opacifications. Patient currently on 2 L nasal cannula. Review of Systems: reviewed ED and H&P notes. Review of system deferred to minimize COVID-19 transmission. Past History Past Medical History: arthritis, CAD, COPD, heart failure, hypertension, other (History of lung cancer, chronic pain) Past Surgical History: Other (Bilateral cataracts, right lobectomy) Social history: smoking (Former smoker) Family history: no significant family history Medications and Allergies Allergies Allergy/AdvReac Type Severity Reaction Status Date / Time erythromycin base Allergy Rash Verified 09/22/18 11:48 [Erythromycin Base] hydromorphone [From Dilaudid] Allergy Vomiting Verified 07/31/20 02:29 Penicillins Allergy Shortness Verified 09/22/18 11:48 of Breath Home Medications Medication Instructions Recorded Confirmed Last Taken Type Albuterol Sulfate [Ventolin HFA] 1 puff IH Q4H PRN 03/17/18 07/31/20 Unknown History Gabapentin 300 mg PO BID 03/17/18 07/31/20 2 Days Ago History ~03/05/19 Ipratropium/Albuterol Sulfate 0.5 mg IH Q6H 03/17/18 07/31/20 2 Days Ago History [DUONEB *Not for PRN Use*] ~03/05/19 Oxybutynin [Ditropan] 5 mg PO BID 03/17/18 07/31/20 2 Days Ago History ~03/05/19 HYDROcodone/APAP 5-325 [[place] 1 each PO Q6HR PRN #14 tablet 04/02/18 07/31/20 Unknown Rx 5-325 mg TAB] Carafate 1 gm PO TID 03/07/19 07/31/20 2 Days Ago History ~03/05/19 Flonase 50 mcg IH DAILY 03/07/19 07/31/20 2 Days Ago History ~03/05/19 Fluticasone/Salmeterol [Advair 250 mg IH DAILY 03/07/19 07/31/20 2 Days Ago History Diskus 250-50 mcg] ~03/05/19 Loratadine 10 mg PO DAILY 03/07/19 07/31/20 2 Days Ago History ~03/05/19 Omeprazole 40 mg PO DAILY 03/07/19 07/31/20 2 Days Ago History ~03/05/19 Silenor 6 mg PO QHS 03/07/19 07/31/20 2 Days Ago History ~03/05/19 oxyCODONE /ACETAMINOPHEN [Percocet 7.5 mg PO Q6HR PRN 03/07/19 07/31/20 2 Days Ago History 5/325 mg] ~03/05/19 Acetaminophen [Acetaminophen TAB] 2 tab PO Q4H PRN #15 tablet 03/09/19 07/31/20 Unknown Rx Metoprolol Xl [Metoprolol 25 mg PO QDAY #30 tablet 03/09/19 07/31/20 Unknown Rx SUCCINATE ER TAB] levoFLOXacin [Levaquin] 750 mg PO QDAY #5 tablet 03/09/19 07/31/20 Unknown Rx methOCARBAMOL [Robaxin TAB] 500 mg PO QID #60 tablet 03/09/19 07/31/20 Unknown Rx Active Meds: Active Medications Acetaminophen (Acetaminophen 325 Mg Tab) 650 mg PO Q4H PRN PRN Reason: Pain MILD(1-3)/Fever >100.5/[place] Albuterol (Albuterol 2.5 Mg/3 Ml Nebu) 2.5 mg IH Q4HRT PRN PRN Reason: Shortness Of Breath Albuterol/Ipratropium (Ipratropium/Albuterol Sulfate 3 Ml Ampul.Neb) 1 ampul IH Q6HRT [facility] Last Admin: 07/31/20 08:49 Dose: Not Given Documented by: Arformoterol Tartrate (Arformoterol 15 Mcg/2 Ml Nebu) 15 mcg IH Q12HRT [facility] Last Admin: 07/31/20 08:49 Dose: Not Given Documented by: Budesonide (Budesonide 0.5 Mg/2 Ml Nebu) 1 mg IH Q12HRT [facility] Last Admin: 07/31/20 08:49 Dose: Not Given Documented by: Cetirizine HCl (Cetirizine 10 Mg Tab) 10 mg PO DAILY [facility] Enoxaparin Sodium (Enoxaparin 40 Mg/0.4 Ml Inj) 40 mg SUB-Q QDAY@2200 [facility]; Protocol Fluticasone Propionate (Fluticasone Propionate Nasal [place] 16 Gm) 100 mcg NS QDAY [facility] Gabapentin (Gabapentin 300 Mg Cap) 300 mg PO BID [facility] Levofloxacin/Dextrose (Levaquin 750mg/150ml) 750 mg in 150 mls @ 100 mls/hr IV Q24H [facility]; Protocol Magnesium Hydroxide (Magnesium Hydroxide (Mom) Oral Liqd Udc) 30 ml PO Q4H PRN PRN Reason: Constipation Methocarbamol (Methocarbamol 500 Mg Tab) 500 mg PO QID [facility] Methylprednisolone Sodium Succinate (Methylprednisolone Sod Succinate 40 Mg/1 Ml Inj) 40 mg IV Q8HR [facility] Metoprolol Succinate (Metoprolol Succinate Xl 25 Mg Tab) 25 mg PO QDAY [facility] Miscellaneous Medication (Silenor) 6 mg PO QHS [facility] Ondansetron HCl (Ondansetron 4 Mg/2 Ml Inj) 4 mg IV Q8H PRN PRN Reason: Nausea And Vomiting Oxybutynin Chloride (Oxybutynin 5 Mg Tab) 5 mg PO BID [facility] Pantoprazole Sodium (Pantoprazole 40 Mg Tab) 40 mg PO DAILY [facility] Sodium Chloride (Sodium Chloride 0.9% 10 Ml Flush Syringe) 10 ml IV BID [facility] Sodium Chloride (Sodium Chloride 0.9% 10 Ml Flush Syringe) 10 ml IV PRN PRN PRN Reason: LINE FLUSH Physical Examination - Physical Exam Narrative exam: Physical exam deferred to minimize COVID-19 transmission during pandemic. ER and internal medicine physical examination notes reviewed. - Constitutional Vitals: Vital Signs Temp Pulse Resp BP Pulse Ox 98.5 F 90 17 111/61 97 07/31/20 09:03 07/31/20 09:03 07/31/20 09:03 07/31/20 09:03 07/31/20 09:03 Temperature -Last 24 Hours Temperature 98.5 F Temperature 98.5 F Temperature 99.9 F Results - Labs CBC & Chem 7: 07/31/20 02:53 07/31/20 02:53 Labs: Abnormal lab results 07/31/20 07/31/20 07/31/20 Range/Units 02:53 02:53 02:53 WBC 12.3 H (4.5-11.0) K/mm3 Lymph % (Auto) 5.7 L (13.4-35.0) % Lymph # (Auto) 0.7 L (1.2-5.4) K/mm3 Seg Neutrophils % 87.9 H (40.0-70.0) % Seg Neutrophils # 10.8 H (1.8-7.7) K/mm3 D-Dimer 1486.43 H (0-234) ng/mlDDU Glucose 122 H (65-100) mg/dL Urine WBC (Auto) (0.0-6.0) /HPF 07/31/20 Range/Units 03:36 WBC (4.5-11.0) K/mm3 Lymph % (Auto) (13.4-35.0) % Lymph # (Auto) (1.2-5.4) K/mm3 Seg Neutrophils % (40.0-70.0) % Seg Neutrophils # (1.8-7.7) K/mm3 D-Dimer (0-234) ng/mlDDU Glucose (65-100) mg/dL Urine WBC (Auto) > 182.0 H (0.0-6.0) /HPF Assessment and Plan Cultures: Blood culture 07/31/2020 no growth today SARS CoV2 PCR pending Assessment: 69 years old female with history of COPD on 2 L home oxygen, lung cancer, status post lobectomy on 2018, CHF EF 35-40%, CAD, hypertension admitted on 07/31/2020 secondary to a week history of cough, generalized malaise, shortness of breath and fever at 102: #Severe sepsis: Present on admission with low-grade fever, tachycardia, elevated leukocytosis likely due to UTI. #Acute UTI: Urinalysis with 182 WBCs and large leukocyte esterase. #Acute on chronic hypoxemic respiratory failure: Patient remains on 2 L nasal cannula. ? COPD versus COVID-19 versus CHF exacerbation. #Rule out COVID-19: CTA without any PE or significant airspace opacification. D-dimer elevated. Ferritin pending. #CHF with possible exacerbation Recommendations: -Follow-up SARS-CoV-2 PCR -Patient started on Solu-Medrol -Monitor inflammatory markers - ferritin, CRP, LDH -pending -Check procalcitonin -Continue Levaquin due to UTI All laboratory, cultures and imaging were reviewed. Discussed with attending. Will follow Riya Tijerina MD Infectious Diseases Branch [facility] M [phone] O [phone]
[2020-07-31] MEDS ORDERED: FLONASE 50 MCG IH SCH (10:00)
[2020-07-31] MEDS ORDERED: OMEPRAZOLE 40 MG PO SCH (10:00)
[2020-07-31] MEDS ORDERED: NON-FORMULARY EACH (Fluticasone/Salmeterol [Advair Diskus 250-50 Mcg] 1 EACH Blst.W.Dev) IH SCH (10:00)
[2020-07-31] MEDS ORDERED: LORATADINE 10 MG PO SCH (10:00)
[2020-07-31] MEDS: FLUTICASONE PROPIONATE NASAL SPRAY 16 GM NS SCH (10:00)
[2020-07-31] MEDS: PANTOPRAZOLE 40 MG TAB PO SCH (10:09)
[2020-07-31] MEDS: METOPROLOL SUCCINATE XL 25 MG TAB PO SCH (10:09)
[2020-07-31] MEDS: GABAPENTIN 300 MG CAP PO SCH ×2 (10:09→21:16)
[2020-07-31] MEDS: OXYBUTYNIN 5 MG TAB PO SCH ×2 (10:09→21:15)
[2020-07-31] MEDS: CETIRIZINE 10 MG TAB PO SCH (10:09)
[2020-07-31] MEDS: ACETAMINOPHEN 325 MG TAB PO PRN ×2 (11:40→23:12)
--- NOTE | 2020-07-31 11:41 | Consultation ---
History of Present Illness Consult date: 07/31/20 Consult reason: shortness of breath, other (Cardiomyopathy) History of present illness: This is a 69-year old F with a history of chronic lung disease, status post right upper lobectomy for localized lung cancer on home oxygen who presents with shortness of breath because she ran out of oxygen. On presentation, found with low-grade fever, leukocytosis and UTI. Chest x-ray showed no interstitial edema but she is currently undergoing workup for suspected coronavirus. A cardiac consultation has been requested for shortness of breath. There were no report of chest pain or palpitations. An ECG is sinus tachycardia with low voltage. Patient is known to [facility] and is followed by Dr May on a routine basis. In 2018 she had a cardiac cath that showed no significant coronary artery disease. Mild left ventricular systolic function dysfunction, ejection fraction 40-45% by echocardiogram. A year later a stress thallium test showed no ischemia. Left ventricular systolic function 35-40% by echocardiogram. Past History Past Medical History: arthritis, CAD (non-obstructive), COPD, heart failure, hypertension, other (History of lung cancer, chronic pain) Past Surgical History: Other (Bilateral cataracts, right lobectomy) Social history: smoking (Former smoker) Family history: no significant family history Medications and Allergies Allergies Allergy/AdvReac Type Severity Reaction Status Date / Time erythromycin base Allergy Rash Verified 09/22/18 11:48 [Erythromycin Base] hydromorphone [From Dilaudid] Allergy Vomiting Verified 07/31/20 02:29 Penicillins Allergy Shortness Verified 09/22/18 11:48 of Breath Home Medications Medication Instructions Recorded Confirmed Last Taken Type Albuterol Sulfate [Ventolin HFA] 1 puff IH Q4H PRN 03/17/18 07/31/20 Unknown History Gabapentin 300 mg PO BID 03/17/18 07/31/20 2 Days Ago History ~03/05/19 Ipratropium/Albuterol Sulfate 0.5 mg IH Q6H 03/17/18 07/31/20 2 Days Ago History [DUONEB *Not for PRN Use*] ~03/05/19 Oxybutynin [Ditropan] 5 mg PO BID 03/17/18 07/31/20 2 Days Ago History ~03/05/19 HYDROcodone/APAP 5-325 [[place] 1 each PO Q6HR PRN #14 tablet 04/02/18 07/31/20 Unknown Rx 5-325 mg TAB] Carafate 1 gm PO TID 03/07/19 07/31/20 2 Days Ago History ~03/05/19 Flonase 50 mcg IH DAILY 03/07/19 07/31/20 2 Days Ago History ~03/05/19 Fluticasone/Salmeterol [Advair 250 mg IH DAILY 03/07/19 07/31/20 2 Days Ago History Diskus 250-50 mcg] ~03/05/19 Loratadine 10 mg PO DAILY 03/07/19 07/31/20 2 Days Ago History ~03/05/19 Omeprazole 40 mg PO DAILY 03/07/19 07/31/20 2 Days Ago History ~03/05/19 Silenor 6 mg PO QHS 03/07/19 07/31/20 2 Days Ago History ~03/05/19 oxyCODONE /ACETAMINOPHEN [Percocet 7.5 mg PO Q6HR PRN 03/07/19 07/31/20 2 Days Ago History 5/325 mg] ~03/05/19 Acetaminophen [Acetaminophen TAB] 2 tab PO Q4H PRN #15 tablet 03/09/19 07/31/20 Unknown Rx Metoprolol Xl [Metoprolol 25 mg PO QDAY #30 tablet 03/09/19 07/31/20 Unknown Rx SUCCINATE ER TAB] levoFLOXacin [Levaquin] 750 mg PO QDAY #5 tablet 03/09/19 07/31/20 Unknown Rx methOCARBAMOL [Robaxin TAB] 500 mg PO QID #60 tablet 03/09/19 07/31/20 Unknown Rx Active Meds: Active Medications Acetaminophen (Acetaminophen 325 Mg Tab) 650 mg PO Q4H PRN PRN Reason: Pain MILD(1-3)/Fever >100.5/[place] Albuterol (Albuterol 2.5 Mg/3 Ml Nebu) 2.5 mg IH Q4HRT PRN PRN Reason: Shortness Of Breath Albuterol/Ipratropium (Ipratropium/Albuterol Sulfate 3 Ml Ampul.Neb) 1 ampul IH Q6HRT [facility] Last Admin: 07/31/20 09:55 Dose: 1 ampul Documented by: Arformoterol Tartrate (Arformoterol 15 Mcg/2 Ml Nebu) 15 mcg IH Q12HRT [facility] Last Admin: 07/31/20 09:56 Dose: 15 mcg Documented by: Budesonide (Budesonide 0.5 Mg/2 Ml Nebu) 1 mg IH Q12HRT [facility] Last Admin: 07/31/20 09:55 Dose: 1 mg Documented by: Cetirizine HCl (Cetirizine 10 Mg Tab) 10 mg PO DAILY [facility] Last Admin: 07/31/20 10:09 Dose: 10 mg Documented by: Enoxaparin Sodium (Enoxaparin 40 Mg/0.4 Ml Inj) 40 mg SUB-Q QDAY@2200 [facility]; Protocol Fluticasone Propionate (Fluticasone Propionate Nasal [place] 16 Gm) 100 mcg NS QDAY [facility] Gabapentin (Gabapentin 300 Mg Cap) 300 mg PO BID [facility] Last Admin: 07/31/20 10:09 Dose: 300 mg Documented by: Levofloxacin/Dextrose (Levaquin 750mg/150ml) 750 mg in 150 mls @ 100 mls/hr IV Q24H [facility]; Protocol Magnesium Hydroxide (Magnesium Hydroxide (Mom) Oral Liqd Udc) 30 ml PO Q4H PRN PRN Reason: Constipation Methocarbamol (Methocarbamol 500 Mg Tab) 500 mg PO QID [facility] Last Admin: 07/31/20 10:09 Dose: 500 mg Documented by: Methylprednisolone Sodium Succinate (Methylprednisolone Sod Succinate 40 Mg/1 Ml Inj) 40 mg IV Q8HR [facility] Metoprolol Succinate (Metoprolol Succinate Xl 25 Mg Tab) 25 mg PO QDAY [facility] Last Admin: 07/31/20 10:09 Dose: 25 mg Documented by: Miscellaneous Medication (Silenor) 6 mg PO QHS [facility] Ondansetron HCl (Ondansetron 4 Mg/2 Ml Inj) 4 mg IV Q8H PRN PRN Reason: Nausea And Vomiting Oxybutynin Chloride (Oxybutynin 5 Mg Tab) 5 mg PO BID [facility] Last Admin: 07/31/20 10:09 Dose: 5 mg Documented by: Pantoprazole Sodium (Pantoprazole 40 Mg Tab) 40 mg PO DAILY [facility] Last Admin: 07/31/20 10:09 Dose: 40 mg Documented by: Sodium Chloride (Sodium Chloride 0.9% 10 Ml Flush Syringe) 10 ml IV BID [facility] Last Admin: 07/31/20 10:10 Dose: 10 ml Documented by: Sodium Chloride (Sodium Chloride 0.9% 10 Ml Flush Syringe) 10 ml IV PRN PRN PRN Reason: LINE FLUSH Physical Examination Vital Signs Temp 99.9 F H 07/31/20 02:20 Narrative exam: Deferred due to isolation protocol. General appearance: no acute distress Results 07/31/20 02:53 07/31/20 02:53 Cardiac Enzymes 07/31/20 Range/Units 02:53 AST 12 (5-40) units/L Coagulation 07/31/20 Range/Units 02:53 PT 13.9 (12.2-14.9) Sec. INR 1.09 (0.87-1.13) CBC 07/31/20 Range/Units 02:53 WBC 12.3 H (4.5-11.0) K/mm3 RBC 4.11 (3.65-5.03) M/mm3 Hgb 12.9 (10.1-14.3) gm/dl Hct 38.8 (30.3-42.9) % Plt Count 266 (140-440) K/mm3 Lymph # (Auto) 0.7 L (1.2-5.4) K/mm3 [place] # (Auto) 0.6 (0.0-0.8) K/mm3 Eos # (Auto) 0.1 (0.0-0.4) K/mm3 Baso # (Auto) 0.1 (0.0-0.1) K/mm3 Comprehensive Metabolic Panel 07/31/20 Range/Units 02:53 Sodium 141 (137-145) mmol/L Potassium 3.9 (3.6-5.0) mmol/L Chloride 104.7 (98-107) mmol/L Carbon Dioxide 22 (22-30) mmol/L BUN 14 (7-17) mg/dL Creatinine 0.8 (0.6-1.2) mg/dL Glucose 122 H (65-100) mg/dL Calcium 9.5 (8.4-10.2) mg/dL AST 12 (5-40) units/L ALT 12 (7-56) units/L Alkaline Phosphatase 71 (35-129) units/L Total Protein 6.4 (6.3-8.2) g/dL Albumin 4.0 (3.9-5) g/dL Assessment and Plan Nonischemic cardiomyopathy 08/2018 no ischemia by MPI 08/2018. 02/2019 Echo: LVEF 35-40%. 2018 LHC showed no significant coronary artery disease. 2018 Echo: LVEF 40-45%. Shortness of breath pt ran out of home oxygen chronic lung disease status post right upper lobectomy for localized lung cancer Fever Leukocytosis Acute UTI Hypertension
[2020-07-31] MEDS: methylPREDNISolone Sod Succinate 40 MG/1 ML INJ IV SCH ×2 (14:03→21:15)
--- NOTE | 2020-07-31 14:23 | Consultation ---
History of Present Illness Consult date: 07/31/20 Requesting physician: DALE GERBER Reason for consult: dyspnea, COPD History of present illness: 69 y/o female with chronic respiratory failure, systolic heart failure and prior lobectomy for lung CA back in 2018 who presents with dyspnea. She also had fever up to 102 which is what prompted her to come the ED. No cough, so sputum. No sick contacts. Denies missing medications. Inflammatory markers were elevated and patient was placed in isolation to rule out COVID. Had a CTA that was negative for PE. Urine revealed a UTI which was likely the cause of fever. Past History Past Medical History: arthritis, CAD (non-obstructive), COPD, heart failure, hypertension, other (History of lung cancer, chronic pain) Past Surgical History: Other (Bilateral cataracts, right lobectomy) Social history: smoking (Former smoker) Family history: no significant family history Medications and Allergies Allergies Allergy/AdvReac Type Severity Reaction Status Date / Time erythromycin base Allergy Rash Verified 09/22/18 11:48 [Erythromycin Base] hydromorphone [From Dilaudid] Allergy Vomiting Verified 07/31/20 02:29 Penicillins Allergy Shortness Verified 09/22/18 11:48 of Breath Home Medications Medication Instructions Recorded Confirmed Last Taken Type Albuterol Sulfate [Ventolin HFA] 1 puff IH Q4H PRN 03/17/18 07/31/20 Unknown History Gabapentin 300 mg PO BID 03/17/18 07/31/20 2 Days Ago History ~03/05/19 Ipratropium/Albuterol Sulfate 0.5 mg IH Q6H 03/17/18 07/31/20 2 Days Ago History [DUONEB *Not for PRN Use*] ~03/05/19 Oxybutynin [Ditropan] 5 mg PO BID 03/17/18 07/31/20 2 Days Ago History ~03/05/19 HYDROcodone/APAP 5-325 [[place] 1 each PO Q6HR PRN #14 tablet 04/02/18 07/31/20 Unknown Rx 5-325 mg TAB] Carafate 1 gm PO TID 03/07/19 07/31/20 2 Days Ago History ~03/05/19 Flonase 50 mcg IH DAILY 03/07/19 07/31/20 2 Days Ago History ~03/05/19 Fluticasone/Salmeterol [Advair 250 mg IH DAILY 03/07/19 07/31/20 2 Days Ago History Diskus 250-50 mcg] ~03/05/19 Loratadine 10 mg PO DAILY 03/07/19 07/31/20 2 Days Ago History ~03/05/19 Omeprazole 40 mg PO DAILY 03/07/19 07/31/20 2 Days Ago History ~03/05/19 Silenor 6 mg PO QHS 03/07/19 07/31/20 2 Days Ago History ~03/05/19 oxyCODONE /ACETAMINOPHEN [Percocet 7.5 mg PO Q6HR PRN 03/07/19 07/31/20 2 Days Ago History 5/325 mg] ~03/05/19 Acetaminophen [Acetaminophen TAB] 2 tab PO Q4H PRN #15 tablet 03/09/19 07/31/20 Unknown Rx Metoprolol Xl [Metoprolol 25 mg PO QDAY #30 tablet 03/09/19 07/31/20 Unknown Rx SUCCINATE ER TAB] levoFLOXacin [Levaquin] 750 mg PO QDAY #5 tablet 03/09/19 07/31/20 Unknown Rx methOCARBAMOL [Robaxin TAB] 500 mg PO QID #60 tablet 03/09/19 07/31/20 Unknown Rx Active Meds: Active Medications Acetaminophen (Acetaminophen 325 Mg Tab) 650 mg PO Q4H PRN PRN Reason: Pain MILD(1-3)/Fever >100.5/CASTELLON Last Admin: 07/31/20 11:40 Dose: 650 mg Documented by: Albuterol (Albuterol 2.5 Mg/3 Ml Nebu) 2.5 mg IH Q4HRT PRN PRN Reason: Shortness Of Breath Albuterol/Ipratropium (Ipratropium/Albuterol Sulfate 3 Ml Ampul.Neb) 1 ampul IH Q6HRT [facility] Last Admin: 07/31/20 09:55 Dose: 1 ampul Documented by: Arformoterol Tartrate (Arformoterol 15 Mcg/2 Ml Nebu) 15 mcg IH Q12HRT [facility] Last Admin: 07/31/20 09:56 Dose: 15 mcg Documented by: Budesonide (Budesonide 0.5 Mg/2 Ml Nebu) 1 mg IH Q12HRT [facility] Last Admin: 07/31/20 09:55 Dose: 1 mg Documented by: Cetirizine HCl (Cetirizine 10 Mg Tab) 10 mg PO DAILY [facility] Last Admin: 07/31/20 10:09 Dose: 10 mg Documented by: Enoxaparin Sodium (Enoxaparin 40 Mg/0.4 Ml Inj) 40 mg SUB-Q QDAY@2200 [facility]; Protocol Fluticasone Propionate (Fluticasone Propionate Nasal [place] 16 Gm) 100 mcg NS QDAY [facility] Last Admin: 07/31/20 10:00 Dose: 100 mcg Documented by: Gabapentin (Gabapentin 300 Mg Cap) 300 mg PO BID [facility] Last Admin: 07/31/20 10:09 Dose: 300 mg Documented by: Levofloxacin/Dextrose (Levaquin 750mg/150ml) 750 mg in 150 mls @ 100 mls/hr IV Q24H [facility]; Protocol Magnesium Hydroxide (Magnesium Hydroxide (Mom) Oral Liqd Udc) 30 ml PO Q4H PRN PRN Reason: Constipation Methocarbamol (Methocarbamol 500 Mg Tab) 500 mg PO QID [facility] Last Admin: 07/31/20 14:04 Dose: 500 mg Documented by: Methylprednisolone Sodium Succinate (Methylprednisolone Sod Succinate 40 Mg/1 Ml Inj) 40 mg IV Q8HR [facility] Last Admin: 07/31/20 14:03 Dose: 40 mg Documented by: Metoprolol Succinate (Metoprolol Succinate Xl 25 Mg Tab) 25 mg PO QDAY [facility] Last Admin: 07/31/20 10:09 Dose: 25 mg Documented by: Miscellaneous Medication (Silenor) 6 mg PO QHS [facility] Ondansetron HCl (Ondansetron 4 Mg/2 Ml Inj) 4 mg IV Q8H PRN PRN Reason: Nausea And Vomiting Oxybutynin Chloride (Oxybutynin 5 Mg Tab) 5 mg PO BID [facility] Last Admin: 07/31/20 10:09 Dose: 5 mg Documented by: Pantoprazole Sodium (Pantoprazole 40 Mg Tab) 40 mg PO DAILY [facility] Last Admin: 07/31/20 10:09 Dose: 40 mg Documented by: Sodium Chloride (Sodium Chloride 0.9% 10 Ml Flush Syringe) 10 ml IV BID [facility] Last Admin: 07/31/20 10:10 Dose: 10 ml Documented by: Sodium Chloride (Sodium Chloride 0.9% 10 Ml Flush Syringe) 10 ml IV PRN PRN PRN Reason: LINE FLUSH Physical Examination Vital signs: Vital Signs Temp 99.9 F H 07/31/20 02:20 Results - Laboratory Findings CBC and BMP: 07/31/20 02:53 07/31/20 02:53 PT/INR, D-dimer PT 13.9 Sec. (12.2-14.9) 07/31/20 02:53 INR 1.09 (0.87-1.13) 07/31/20 02:53 D-Dimer 1486.43 ng/mlDDU (0-234) H 07/31/20 02:53 Abnormal lab findings: Abnormal Labs 07/31/20 07/31/20 07/31/20 02:53 02:53 02:53 WBC 12.3 H Lymph % (Auto) 5.7 L Lymph # (Auto) 0.7 L Seg Neutrophils % 87.9 H Seg Neutrophils # 10.8 H D-Dimer 1486.43 H Glucose 122 H Urine WBC (Auto) 07/31/20 03:36 WBC Lymph % (Auto) Lymph # (Auto) Seg Neutrophils % Seg Neutrophils # D-Dimer Glucose Urine WBC (Auto) > 182.0 H - Diagnostic Findings Chest x-ray: report reviewed CT scan - chest: report reviewed Assessment and Plan 69 y/o female admitted with UTI and dyspnea, likely secondary to COPD exacerbation from UTI. 1. Agree with current steroids 2. Abx therapy 3. Continue baseline supplemental oxygen 4. follow up covid testing.
[2020-07-31] MEDS: ENOXAPARIN 40 MG/0.4 ML INJ SUB-Q SCH (21:15)
[2020-07-31] MEDS ORDERED: SILENOR 6 MG PO SCH ×2 (22:00)
[2020-08-01] MEDS: IPRATROPIUM/ALBUTEROL SULFATE 3 ML AMPUL.NEB IH SCH ×2 (02:29→08:05)
[2020-08-01] MEDS: ACETAMINOPHEN 325 MG TAB PO PRN ×2 (05:21→13:33)
[2020-08-01] MEDS: methylPREDNISolone Sod Succinate 40 MG/1 ML INJ IV SCH ×3 (05:21→21:26)
[2020-08-01] MEDS: ARFORMOTEROL 15 MCG/2 ML NEBU IH SCH ×2 (08:05→21:06)
[2020-08-01] MEDS: BUDESONIDE 0.5 MG/2 ML NEBU IH SCH ×2 (08:05→21:05)
--- NOTE | 2020-08-01 08:21 | Progress Note ---
Hospitalist Physical - Constitutional Vitals: Temp Pulse Resp BP Pulse Ox 97.8 F 59 L 18 110/56 99 08/01/20 04:27 08/01/20 04:27 08/01/20 05:21 08/01/20 04:27 08/01/20 04:27 General appearance: Present: no acute distress Results - Labs CBC & Chem 7: 07/31/20 02:53 07/31/20 02:53 Labs: Laboratory Last Values WBC 12.3 K/mm3 (4.5-11.0) H 07/31/20 02:53 RBC 4.11 M/mm3 (3.65-5.03) 07/31/20 02:53 Hgb 12.9 gm/dl (10.1-14.3) 07/31/20 02:53 Hct 38.8 % (30.3-42.9) 07/31/20 02:53 MCV 94 fl (79-97) 07/31/20 02:53 MCH 31 pg (28-32) 07/31/20 02:53 MCHC 33 % (30-34) 07/31/20 02:53 RDW 14.4 % (13.2-15.2) 07/31/20 02:53 Plt Count 266 K/mm3 (140-440) 07/31/20 02:53 Lymph % (Auto) 5.7 % (13.4-35.0) L 07/31/20 02:53 [place] % (Auto) 5.1 % (0.0-7.3) 07/31/20 02:53 Eos % (Auto) 0.7 % (0.0-4.3) 07/31/20 02:53 Baso % (Auto) 0.6 % (0.0-1.8) 07/31/20 02:53 Lymph # (Auto) 0.7 K/mm3 (1.2-5.4) L 07/31/20 02:53 [place] # (Auto) 0.6 K/mm3 (0.0-0.8) 07/31/20 02:53 Eos # (Auto) 0.1 K/mm3 (0.0-0.4) 07/31/20 02:53 Baso # (Auto) 0.1 K/mm3 (0.0-0.1) 07/31/20 02:53 Seg Neutrophils % 87.9 % (40.0-70.0) H 07/31/20 02:53 Seg Neutrophils # 10.8 K/mm3 (1.8-7.7) H 07/31/20 02:53 PT 13.9 Sec. (12.2-14.9) 07/31/20 02:53 INR 1.09 (0.87-1.13) 07/31/20 02:53 D-Dimer 1486.43 ng/mlDDU (0-234) H 07/31/20 02:53 Sodium 141 mmol/L (137-145) 07/31/20 02:53 Potassium 3.9 mmol/L (3.6-5.0) 07/31/20 02:53 Chloride 104.7 mmol/L (98-107) 07/31/20 02:53 Carbon Dioxide 22 mmol/L (22-30) 07/31/20 02:53 Anion Gap 18 mmol/L 07/31/20 02:53 BUN 14 mg/dL (7-17) 07/31/20 02:53 Creatinine 0.8 mg/dL (0.6-1.2) 07/31/20 02:53 Estimated GFR > 60 ml/min 07/31/20 02:53 BUN/Creatinine Ratio 18 % 07/31/20 02:53 Glucose 122 mg/dL (65-100) H 07/31/20 02:53 POC Glucose 120 mg/dL (70-105) H 07/31/20 16:18 Lactic Acid 0.80 mmol/L (0.7-2.0) 07/31/20 05:34 Calcium 9.5 mg/dL (8.4-10.2) 07/31/20 02:53 Total Bilirubin 0.80 mg/dL (0.1-1.2) 07/31/20 02:53 AST 12 units/L (5-40) 07/31/20 02:53 ALT 12 units/L (7-56) 07/31/20 02:53 Alkaline Phosphatase 71 units/L (35-129) 07/31/20 02:53 Total Protein 6.4 g/dL (6.3-8.2) 07/31/20 02:53 Albumin 4.0 g/dL (3.9-5) 07/31/20 02:53 Albumin/Globulin Ratio 1.7 % 07/31/20 02:53 TSH 0.656 mlU/mL (0.270-4.200) 07/31/20 02:55 Free T4 1.21 ng/dL (0.76-1.46) 07/31/20 02:55 Urine Color Yellow (Yellow) 07/31/20 03:36 Urine Turbidity Cloudy (Clear) 07/31/20 03:36 Urine pH 7.0 (5.0-7.0) 07/31/20 03:36 Ur Specific [place] 1.013 (1.003-1.030) 07/31/20 03:36 Urine Protein 100 mg/dl mg/dL (Negative) 07/31/20 03:36 Urine Glucose (UA) Neg mg/dL (Negative) 07/31/20 03:36 Urine Ketones Neg mg/dL (Negative) 07/31/20 03:36 Urine Blood Sm (Negative) 07/31/20 03:36 Urine Nitrite Neg (Negative) 07/31/20 03:36 Urine Bilirubin Neg (Negative) 07/31/20 03:36 Urine Urobilinogen < 2.0 mg/dL (<2.0) 07/31/20 03:36 Ur Leukocyte Esterase Lg (Negative) 07/31/20 03:36 Urine WBC (Auto) > 182.0 /HPF (0.0-6.0) H 07/31/20 03:36 Urine RBC (Auto) 10.0 /HPF (0.0-6.0) 07/31/20 03:36 Urine Mucus Few /HPF 07/31/20 03:36 Coronavirus (PCR) Negative (Negative) 07/31/20 Unknown Microbiology: Microbiology 07/31/20 02:46 Peripheral/Venous Blood Culture - Preliminary NO GROWTH AFTER 24 HOURS 07/31/20 02:53 Peripheral/Venous Blood Culture - Preliminary NO GROWTH AFTER 24 HOURS Lorenzo/IV: Voiding Method Toilet IV Catheter Type [Right INT / Saline Lock Forearm] Active Medications - Current Medications Current Medications: Generic Name Dose Route Start Last Admin Trade Name Freq PRN Reason Stop Dose Admin Acetaminophen 650 mg 07/31/20 06:04 08/01/20 05:21 Acetaminophen 325 Mg Tab PO 650 mg Q4H PRN Administration Pain MILD(1-3)/Fever >100.5/CASTELLON Albuterol 2.5 mg 07/31/20 06:04 Albuterol 2.5 Mg/3 Ml Nebu IH Q4HRT PRN Shortness Of Breath Albuterol/Ipratropium 1 ampul 07/31/20 08:00 08/01/20 08:05 Ipratropium/Albuterol Sulfate 3 Ml Ampul.Neb IH 1 ampul Q6HRT YUMIKO Administration Arformoterol Tartrate 15 mcg 07/31/20 08:15 08/01/20 08:05 Arformoterol 15 Mcg/2 Ml Nebu IH 15 mcg Q12HRT YUMIKO Administration Budesonide 1 mg 07/31/20 08:15 08/01/20 08:05 Budesonide 0.5 Mg/2 Ml Nebu IH 0.5 mg Q12HRT YUMIKO Administration Cetirizine HCl 10 mg 07/31/20 10:00 07/31/20 10:09 Cetirizine 10 Mg Tab PO 10 mg DAILY YUMIKO Administration Enoxaparin Sodium 40 mg 07/31/20 22:00 07/31/20 21:15 Enoxaparin 40 Mg/0.4 Ml Inj SUB-Q 40 mg QDAY@2200 Y[facility]KO Administration Protocol Fluticasone Propionate 100 mcg 07/31/20 10:00 07/31/20 10:00 Fluticasone Propionate Nasal [place] 16 Gm NS 100 mcg QDAY YUMIKO Administration Gabapentin 300 mg 07/31/20 10:00 07/31/20 21:16 Gabapentin 300 Mg Cap PO 300 mg BID YUMIKO Administration Levofloxacin/Dextrose 750 mg in 150 mls @ 100 mls/hr 08/01/20 06:00 08/01/20 05:22 Levaquin 750mg/150ml IV 100 mls/hr Q24H [facility]KO Administration Protocol Magnesium Hydroxide 30 ml 07/31/20 06:04 Magnesium Hydroxide (Mom) Oral Liqd Udc PO Q4H PRN Constipation Methocarbamol 500 mg 07/31/20 10:00 07/31/20 21:16 Methocarbamol 500 Mg Tab PO 500 mg QID YUMIKO Administration Methylprednisolone Sodium Succinate 40 mg 07/31/20 14:00 08/01/20 05:21 Methylprednisolone Sod Succinate 40 Mg/1 Ml Inj IV 40 mg Q8HR YUMIKO Administration Metoprolol Succinate 25 mg 07/31/20 10:00 07/31/20 10:09 Metoprolol Succinate Xl 25 Mg Tab PO 25 mg QDAY YUMIKO Administration Ondansetron HCl 4 mg 07/31/20 06:04 Ondansetron 4 Mg/2 Ml Inj IV Q8H PRN Nausea And Vomiting Oxybutynin Chloride 5 mg 07/31/20 10:00 07/31/20 21:15 Oxybutynin 5 Mg Tab PO 5 mg BID YUMIKO Administration Pantoprazole Sodium 40 mg 07/31/20 10:00 07/31/20 10:09 Pantoprazole 40 Mg Tab PO 40 mg DAILY YUMIKO Administration Sodium Chloride 10 ml 07/31/20 10:00 07/31/20 21:16 Sodium Chloride 0.9% 10 Ml Flush Syringe IV 10 ml BID YUMIKO Administration Sodium Chloride 10 ml 07/31/20 06:04 Sodium Chloride 0.9% 10 Ml Flush Syringe IV PRN PRN LINE FLUSH
--- NOTE | 2020-08-01 08:49 | Progress Note ---
Assessment and Plan Nonischemic cardiomyopathy -no evidence of decompensation. 08/2018 no ischemia by MPI 08/2018. 02/2019 Echo: LVEF 35-40%. 2018 LHC showed no significant coronary artery disease. 2018 Echo: LVEF 40-45%. Shortness of breath pt ran out of home oxygen chronic lung disease status post right upper lobectomy for localized lung cancer Fever -negative COVID 19 test. Leukocytosis Acute UTI Hypertension Conservative cardiac management. Subjective Date of service: 08/01/20 Interval history: Patient has no cardiac complaints. Denies chest pain, denies SOB and denies palpitations. Objective Vital Signs Temp Pulse Pulse Pulse Resp Resp Resp 08/01/20 05:21 18 08/01/20 04:27 97.8 F 59 L 20 07/31/20 22:00 18 18 07/31/20 21:42 98.0 F 69 16 07/31/20 20:56 18 L 71 07/31/20 17:37 97.5 F L 71 18 07/31/20 14:30 90 84 18 07/31/20 10:29 07/31/20 09:50 81 86 18 07/31/20 09:22 97.6 F 81 18 07/31/20 09:03 98.5 F 90 17 Resp BP BP Pulse Ox 08/01/20 05:21 08/01/20 04:27 110/56 99 07/31/20 22:00 97 07/31/20 21:42 120/56 97 07/31/20 20:56 18 97 07/31/20 17:37 107/46 97 07/31/20 14:30 18 07/31/20 10:29 95 07/31/20 09:50 18 07/31/20 09:22 97/37 93 07/31/20 09:03 111/61 97 - Physical Examination General: No Apparent Distress HEENT: Positive: PERRL Neck: Positive: trachea midline Cardiac: Positive: Reg Rate and Rhythm Lungs: Positive: Decreased Breath Sounds Neuro: Positive: Grossly Intact Extremities: Absent: edema
[2020-08-01] MEDS: CETIRIZINE 10 MG TAB PO SCH (09:37)
[2020-08-01] MEDS: OXYBUTYNIN 5 MG TAB PO SCH ×2 (09:37→22:31)
[2020-08-01] MEDS: PANTOPRAZOLE 40 MG TAB PO SCH (09:38)
[2020-08-01] MEDS: GABAPENTIN 300 MG CAP PO SCH ×2 (09:38→21:26)
[2020-08-01] MEDS: METOPROLOL SUCCINATE XL 25 MG TAB PO SCH (09:39)
[2020-08-01] MEDS: FLUTICASONE PROPIONATE NASAL SPRAY 16 GM NS SCH (09:41)
--- NOTE | 2020-08-01 10:59 | Progress Note ---
Assessment and Plan Assessment and plan: 69-year-old female with known history of COPD on 2 L of oxygen at home, history of lung cancer treated with lobectomy 2018, CHF with ejection fraction of 35 to 40% with diastolic dysfunction on echo done in February 2019, coronary artery disease and hypertension presenting to the emergency room today complaining of generalized weakness and fever which started earlier this evening. Patient has had occasional dry cough and has also been using inhaler more frequently over the past 1 week. Generalized weakness got worse earlier this evening when going to the restroom. She has also had a fever of about 102 F. Upon arrival in the emergency room patient was tachycardic with some mild chest discomfort. O2 saturation was 92% on arrival. Patient follows up with Dr. Pavon-her tobacco stripper hand. She denies any sick contacts and no recent travel. She denies any contact with anyone with COVID-19. She tested negative for COVID-19 in April 2020. Work-up in the emergency room reveals UTI, D-dimer was elevated. CT angiogram did not reveal any pulmonary embolism or infiltrate. 08/01: Patient has been started on antibiotics for acute UTI inducing sepsis. Covid testing was negative. Cardiology evaluated the patient no acute pathology noted. CT of the chest was negative for pulmonary embolism or any acute pathology. Patient is chronically on oxygen on 2L uses this at home. Also seen by pulmonary continue management for COPD with acute exacerbation. Anticipate discharge in 24 hours Severe sepsis Acute on chronic hypoxemic respiratory failure now resolving Nonischemic cardiomyopathy Chronic systolic congestive heart failure stable Acute cystitis Hypertension History Interval history: Patient seen and examined reports no fever today clinically improving but not yet at her baseline. Hospitalist Physical - Physical exam Narrative exam: VITAL SIGNS: Reviewed. GENERAL: The patient appears normally developed, Vital signs as documented. HEAD: No signs of head trauma. EYES: Pupils are equal. Extraocular motions intact. EARS: Hearing grossly intact. MOUTH: Oropharynx is normal. NECK: No adenopathy, no JVD. CHEST: Chest with clear breath sounds bilaterally. No wheezes, rales, or rhonchi. CARDIAC: Regular rate and rhythm. S1 and S2, without murmurs, gallops, or rubs. VASCULAR: No Edema. Peripheral pulses normal and equal in all extremities. ABDOMEN: Soft, non tender and non distended. No rebound or guarding, and no masses palpated. Bowel Sounds normal. MUSCULOSKELETAL: Good range of motion of all major joints. Extremities without clubbing, cyanosis or edema. NEUROLOGIC EXAM: Alert and oriented x 3 No focal sensory or strength defic its. Speech normal. Follows commands. PSYCHIATRIC: Mood normal. SKIN: detail exam as documented in skin assessment - Constitutional Vitals: Temp Pulse Resp BP Pulse Ox 97.8 F 58 L 18 110/56 97 08/01/20 04:27 08/01/20 08:00 08/01/20 08:00 08/01/20 04:27 08/01/20 08:50 General appearance: Present: no acute distress Results - Labs CBC & Chem 7: 07/31/20 02:53 07/31/20 02:53 Labs: Laboratory Last Values WBC 12.3 K/mm3 (4.5-11.0) H 07/31/20 02:53 RBC 4.11 M/mm3 (3.65-5.03) 07/31/20 02:53 Hgb 12.9 gm/dl (10.1-14.3) 07/31/20 02:53 Hct 38.8 % (30.3-42.9) 07/31/20 02:53 MCV 94 fl (79-97) 07/31/20 02:53 MCH 31 pg (28-32) 07/31/20 02:53 MCHC 33 % (30-34) 07/31/20 02:53 RDW 14.4 % (13.2-15.2) 07/31/20 02:53 Plt Count 266 K/mm3 (140-440) 07/31/20 02:53 Lymph % (Auto) 5.7 % (13.4-35.0) L 07/31/20 02:53 [place] % (Auto) 5.1 % (0.0-7.3) 07/31/20 02:53 Eos % (Auto) 0.7 % (0.0-4.3) 07/31/20 02:53 Baso % (Auto) 0.6 % (0.0-1.8) 07/31/20 02:53 Lymph # (Auto) 0.7 K/mm3 (1.2-5.4) L 07/31/20 02:53 [place] # (Auto) 0.6 K/mm3 (0.0-0.8) 07/31/20 02:53 Eos # (Auto) 0.1 K/mm3 (0.0-0.4) 07/31/20 02:53 Baso # (Auto) 0.1 K/mm3 (0.0-0.1) 07/31/20 02:53 Seg Neutrophils % 87.9 % (40.0-70.0) H 07/31/20 02:53 Seg Neutrophils # 10.8 K/mm3 (1.8-7.7) H 07/31/20 02:53 PT 13.9 Sec. (12.2-14.9) 07/31/20 02:53 INR 1.09 (0.87-1.13) 07/31/20 02:53 D-Dimer 1486.43 ng/mlDDU (0-234) H 07/31/20 02:53 Sodium 141 mmol/L (137-145) 07/31/20 02:53 Potassium 3.9 mmol/L (3.6-5.0) 07/31/20 02:53 Chloride 104.7 mmol/L (98-107) 07/31/20 02:53 Carbon Dioxide 22 mmol/L (22-30) 07/31/20 02:53 Anion Gap 18 mmol/L 07/31/20 02:53 BUN 14 mg/dL (7-17) 07/31/20 02:53 Creatinine 0.8 mg/dL (0.6-1.2) 07/31/20 02:53 Estimated GFR > 60 ml/min 07/31/20 02:53 BUN/Creatinine Ratio 18 % 07/31/20 02:53 Glucose 122 mg/dL (65-100) H 07/31/20 02:53 POC Glucose 120 mg/dL (70-105) H 07/31/20 16:18 Lactic Acid 0.80 mmol/L (0.7-2.0) 07/31/20 05:34 Calcium 9.5 mg/dL (8.4-10.2) 07/31/20 02:53 Total Bilirubin 0.80 mg/dL (0.1-1.2) 07/31/20 02:53 AST 12 units/L (5-40) 07/31/20 02:53 ALT 12 units/L (7-56) 07/31/20 02:53 Alkaline Phosphatase 71 units/L (35-129) 07/31/20 02:53 Total Protein 6.4 g/dL (6.3-8.2) 07/31/20 02:53 Albumin 4.0 g/dL (3.9-5) 07/31/20 02:53 Albumin/Globulin Ratio 1.7 % 07/31/20 02:53 TSH 0.656 mlU/mL (0.270-4.200) 07/31/20 02:55 Free T4 1.21 ng/dL (0.76-1.46) 07/31/20 02:55 Urine Color Yellow (Yellow) 07/31/20 03:36 Urine Turbidity Cloudy (Clear) 07/31/20 03:36 Urine pH 7.0 (5.0-7.0) 07/31/20 03:36 Ur Specific [place] 1.013 (1.003-1.030) 07/31/20 03:36 Urine Protein 100 mg/dl mg/dL (Negative) 07/31/20 03:36 Urine Glucose (UA) Neg mg/dL (Negative) 07/31/20 03:36 Urine Ketones Neg mg/dL (Negative) 07/31/20 03:36 Urine Blood Sm (Negative) 07/31/20 03:36 Urine Nitrite Neg (Negative) 07/31/20 03:36 Urine Bilirubin Neg (Negative) 07/31/20 03:36 Urine Urobilinogen < 2.0 mg/dL (<2.0) 07/31/20 03:36 Ur Leukocyte Esterase Lg (Negative) 07/31/20 03:36 Urine WBC (Auto) > 182.0 /HPF (0.0-6.0) H 07/31/20 03:36 Urine RBC (Auto) 10.0 /HPF (0.0-6.0) 07/31/20 03:36 Urine Mucus Few /HPF 07/31/20 03:36 Coronavirus (PCR) Negative (Negative) 07/31/20 Unknown Microbiology: Microbiology 07/31/20 Unknown Urine,Clean Catch Urine Culture - Preliminary 07/31/20 02:46 Peripheral/Venous Blood Culture - Preliminary NO GROWTH AFTER 24 HOURS 07/31/20 02:53 Peripheral/Venous Blood Culture - Preliminary NO GROWTH AFTER 24 HOURS Lorenzo/IV: Voiding Method Toilet IV Catheter Type [Right INT / Saline Lock Forearm] Active Medications - Current Medications Current Medications: Generic Name Dose Route Start Last Admin Trade Name Freq PRN Reason Stop Dose Admin Acetaminophen 650 mg 07/31/20 06:04 08/01/20 05:21 Acetaminophen 325 Mg Tab PO 650 mg Q4H PRN Administration Pain MILD(1-3)/Fever >100.5/CASETLLON Albuterol 2.5 mg 07/31/20 06:04 Albuterol 2.5 Mg/3 Ml Nebu IH Q4HRT PRN Shortness Of Breath Arformoterol Tartrate 15 mcg 07/31/20 08:15 08/01/20 08:05 Arformoterol 15 Mcg/2 Ml Nebu IH 15 mcg Q12HRT YUM[facility]KO Administration Budesonide 0.5 mg 08/01/20 08:50 Budesonide 0.5 Mg/2 Ml Nebu IH Q12HRT YUMIKO Cetirizine HCl 10 mg 07/31/20 10:00 08/01/20 09:37 Cetirizine 10 Mg Tab PO 10 mg DAILY YUM[facility]KO Administration Enoxaparin Sodium 40 mg 07/31/20 22:00 07/31/20 21:15 Enoxaparin 40 Mg/0.4 Ml Inj SUB-Q 40 mg QDAY@2200 YUM[facility]KO Administration Protocol Fluticasone Propionate 100 mcg 07/31/20 10:00 08/01/20 09:41 Fluticasone Propionate Nasal [place] 16 Gm NS 100 mcg QDAY YUM[facility]KO Administration Gabapentin 300 mg 07/31/20 10:00 08/01/20 09:38 Gabapentin 300 Mg Cap PO 300 mg BID YUMIKO Administration Levofloxacin/Dextrose 750 mg in 150 mls @ 100 mls/hr 08/01/20 06:00 08/01/20 05:22 Levaquin 750mg/150ml IV 100 mls/hr Q24H YUM[facility]KO Administration Protocol Magnesium Hydroxide 30 ml 07/31/20 06:04 Magnesium Hydroxide (Mom) Oral Liqd Udc PO Q4H PRN Constipation Methocarbamol 500 mg 07/31/20 10:00 08/01/20 09:38 Methocarbamol 500 Mg Tab PO 500 mg QID YUM[facility]KO Administration Methylprednisolone Sodium Succinate 40 mg 07/31/20 14:00 08/01/20 05:21 Methylprednisolone Sod Succinate 40 Mg/1 Ml Inj IV 40 mg Q8HR YUMIKO Administration Metoprolol Succinate 25 mg 07/31/20 10:00 08/01/20 09:39 Metoprolol Succinate Xl 25 Mg Tab PO 25 mg QDAY YUMIKO Administration Ondansetron HCl 4 mg 07/31/20 06:04 Ondansetron 4 Mg/2 Ml Inj IV Q8H PRN Nausea And Vomiting Oxybutynin Chloride 5 mg 07/31/20 10:00 08/01/20 09:37 Oxybutynin 5 Mg Tab PO 5 mg BID YUMIKO Administration Pantoprazole Sodium 40 mg 07/31/20 10:00 08/01/20 09:38 Pantoprazole 40 Mg Tab PO 40 mg DAILY YUMIKO Administration Sodium Chloride 10 ml 07/31/20 10:00 08/01/20 09:37 Sodium Chloride 0.9% 10 Ml Flush Syringe IV 10 ml BID YUMIKO Administration Sodium Chloride 10 ml 07/31/20 06:04 Sodium Chloride 0.9% 10 Ml Flush Syringe IV PRN PRN LINE FLUSH
--- NOTE | 2020-08-01 11:20 | Progress Note ---
Assessment and Plan Cultures: Blood culture 07/31/2020 no growth today Urine culture 07/31/2020 10-100k mixed SARS CoV2 PCR neg Assessment: 69 years old female with history of COPD on 2 L home oxygen, lung cancer, status post lobectomy on 2018, CHF EF 35-40%, CAD, hypertension admitted on 07/31/2020 secondary to a week history of cough, generalized malaise, shortness of breath and fever at 102: #Severe sepsis: Present on admission with low-grade fever, tachycardia, elevated leukocytosis likely due to UTI. #Acute UTI: Urinalysis with 182 WBCs and large leukocyte esterase. Urine culture grew mixed bacteria. #Acute on chronic hypoxemic respiratory failure: Patient remains on 2 L nasal cannula. ? COPD versus CHF exacerbation. SARS-CoV-2 PCR negative. #CHF vs COPD with possible exacerbation. CTA negative #Penicillin anaphylaxis: Remote Recommendations: -Continue Levaquin due to UTI / COPD erxacerbation for 5 days. Okay to change to p.o. -Elevated D-dimer per internal medicine All laboratory, cultures and imaging were reviewed. Will sign off call us if any question Riya Tijerina MD Infectious Diseases [employer]eter [employer] Operator [facility] M [phone] O [phone] Subjective Date of service: 08/01/20 Principal diagnosis: Sepsis/UTI Interval history: Patient feels better, denies shortness of breath or dyspnea on exertion. Currently on 2 L nasal cannula. Objective - Exam Narrative Exam: General appearance: Alert in NAD pleasant Eyes: anicteric sclerae, moist conjunctivae; no lid-lag; PERRLA HENT: Normocephalic, Atraumatic; normal external ears, nares open, oropharynx clear Neck: supple, tracheal midline, no JVD Lungs: CTA, with normal respiratory effort and no intercostal retractions CV: RRR no murmur Abdomen: Soft, non-tender; no masses or hepatosplenomegaly Extremities: no edema, no cyanosis Skin: No rash. Psych: no agitated Neuro: alert and oriented x 3. Moving all extermities - Constitutional Vitals: Vital Signs Temp Pulse Resp BP Pulse Ox 97.8 F 58 L 18 110/56 97 08/01/20 04:27 08/01/20 08:00 08/01/20 08:00 08/01/20 04:27 08/01/20 08:50 Temperature -Last 24 Hours Temperature 97.8 F Temperature 98.0 F Temperature 97.5 F - Labs CBC & Chem 7: 07/31/20 02:53 07/31/20 02:53 Labs: Abnormal lab results 07/31/20 Range/Units 16:18 POC Glucose 120 H (70-105) mg/dL
--- NOTE | 2020-08-01 11:28 | Progress Note ---
Assessment and Plan 69 y/o female admitted with UTI and dyspnea, likely secondary to COPD exacerbation from UTI. 1. COVID negative 2. Suggest change to prednisone 60 daily at discharge and taper as follows: 60 daily for 2 days, 40 daily for 2 days, 20 daily for 2 days then stop. 3. Fine with abx therapy, if only for UTI would treat for 7 days total 4. No objection to discharge tomorrow. Does not need to be seen by pulm prior to discharge unless there is a clinical change. Subjective Date of service: 08/01/20 Principal diagnosis: Sepsis/UTI Interval history: No acute events. Feels better but does not feel that she is ready to go home yet. Urine culture appears to be contaminated. Objective Vital Signs - 12hr 08/01/20 08/01/20 08/01/20 04:27 05:21 08:00 Temperature 97.8 F Pulse Rate 59 L Pulse Rate [ 58 L Posterior] Respiratory 20 18 Rate Respiratory 18 Rate [Posterior ] Blood Pressure 110/56 O2 Sat by Pulse 99 Oximetry 08/01/20 08:50 Temperature Pulse Rate Pulse Rate [ Posterior] Respiratory Rate Respiratory Rate [Posterior ] Blood Pressure O2 Sat by Pulse 97 Oximetry CBC and BMP: 07/31/20 02:53 07/31/20 02:53 ABG, PT/INR, D-dimer: PT/INR, D-dimer PT 13.9 Sec. (12.2-14.9) 07/31/20 02:53 INR 1.09 (0.87-1.13) 07/31/20 02:53 D-Dimer 1486.43 ng/mlDDU (0-234) H 07/31/20 02:53 Abnormal lab findings: Abnormal Labs 07/31/20 07/31/20 07/31/20 02:53 02:53 02:53 WBC 12.3 H Lymph % (Auto) 5.7 L Lymph # (Auto) 0.7 L Seg Neutrophils % 87.9 H Seg Neutrophils # 10.8 H D-Dimer 1486.43 H Glucose 122 H POC Glucose Urine WBC (Auto) 07/31/20 07/31/20 03:36 16:18 WBC Lymph % (Auto) Lymph # (Auto) Seg Neutrophils % Seg Neutrophils # D-Dimer Glucose POC Glucose 120 H Urine WBC (Auto) > 182.0 H
[2020-08-01] MEDS: ENOXAPARIN 40 MG/0.4 ML INJ SUB-Q SCH (21:27)
[2020-08-02] MEDS: methylPREDNISolone Sod Succinate 40 MG/1 ML INJ IV SCH (05:15)
[2020-08-02] MEDS: ACETAMINOPHEN 325 MG TAB PO PRN (06:39)
--- NOTE | 2020-08-02 07:40 | Discharge Summary ---
Providers - Providers Date of Admission: 07/31/20 05:05 Attending physician: DALE EGRBER MD 07/31/20 06:16 Consult to Physician [CONS] Routine Comment: Consulting Provider: RAYNA SULLIVAN Physician Instructions: Reason For Exam: Cough,fever- R/O COVID 19 07/31/20 07:44 Consult to Physician [CONS] Routine Comment: Consulting Provider: CARMEN NUGENT Physician Instructions: Reason For Exam: shortness of breath, cardiomyopathy Primary care physician: MEDICAL COMMUNICATION SPECIALIST Hospitalization Condition: Stable Hospital course: 69-year-old female with known history of COPD on 2 L of oxygen at home, history of lung cancer treated with lobectomy 2017, CHF with ejection fraction of 35 to 40% with diastolic dysfunction on echo done in February 2019, coronary artery disease and hypertension presenting to the emergency room today complaining of generalized weakness and fever which started earlier this evening. Patient has had occasional dry cough and has also been using inhaler more frequently over the past 1 week. Generalized weakness got worse earlier this evening when going to the restroom. She has also had a fever of about 102 F. Upon arrival in the emergency room patient was tachycardic with some mild chest discomfort. O2 saturation was 92% on arrival. Patient follows up with Dr. Pavon-her charger tester. She denies any sick contacts and no recent travel. She denies any contact with anyone with COVID-19. She tested negative for COVID-19 in April 2020. Work-up in the emergency room reveals UTI, D-dimer was elevated. CT angiogram did not reveal any pulmonary embolism or infiltrate. 08/01: Patient has been started on antibiotics for acute UTI inducing sepsis. Covid testing was negative. Cardiology evaluated the patient no acute pathology noted. CT of the chest was negative for pulmonary embolism or any acute pathology. Patient is chronically on oxygen on 2L uses this at home. Also seen by pulmonary continue management for COPD with acute exacerbation. Anticipate discharge in 24 hours 08/02: Antibiotics changed per ID, Severe sepsis Acute on chronic hypoxemic respiratory failure now resolving Nonischemic cardiomyopathy Chronic systolic congestive heart failure stable Acute cystitis Hypertension Disposition: DC/TX-06 HOME UNDER HOME [facility] Time spent for discharge: 35 mins Core Measure Documentation - Palliative Care Palliative Care/ Comfort Measures: Not Applicable Exam - Physical Exam Narrative exam: VITAL SIGNS: Reviewed. GENERAL: The patient appears normally developed, Vital signs as documented. HEAD: No signs of head trauma. EYES: Pupils are equal. Extraocular motions intact. EARS: Hearing grossly intact. MOUTH: Oropharynx is normal. NECK: No adenopathy, no JVD. CHEST: Chest with clear breath sounds bilaterally. No wheezes, rales, or rhonchi. CARDIAC: Regular rate and rhythm. S1 and S2, without murmurs, gallops, or rubs. VASCULAR: No Edema. Peripheral pulses normal and equal in all extremities. ABDOMEN: Soft, non tender and non distended. No rebound or guarding, and no masses palpated. Bowel Sounds normal. MUSCULOSKELETAL: Good range of motion of all major joints. Extremities without clubbing, cyanosis or edema. NEUROLOGIC EXAM: Alert and oriented x 3 No focal sensory or strength deficits. Speech normal. Follows commands. PSYCHIATRIC: Mood normal. SKIN: detail exam as documented in skin assessment - Constitutional Vitals: Temp Pulse Resp BP Pulse Ox 97.5 F L 67 14 119/59 98 08/02/20 03:47 08/02/20 03:47 08/02/20 03:47 08/02/20 03:47 08/02/20 03:47 Plan Activity: advance as tolerated, fall precautions Diet: low fat, low salt, diabetic Special Instructions: record daily BP diary, record blood sugar diary, home oxygen via (nasal cannula @ 2 liters per minute) Follow up with: PRIMARY CARE, [Primary Care Provider] - 3-5 Days LUIS A GUERRERO MD [Staff Physician] - 7 Days Prescriptions: Fluticasone/Salmeterol [Advair Diskus 250-50 mcg] 250 mg IH DAILY #1 Ipratropium/Albuterol Sulfate [DUONEB *Not for PRN Use*] 0.5 mg IH Q6H #60 levoFLOXacin [Levaquin TAB] 750 mg PO QDAY #5 tablet Prednisone [predniSONE 10 mg (6-Day Pack, 21 Tabs)] 10 mg PO .TAPER #1 tab.ds.pk
[2020-08-02] MEDS: ARFORMOTEROL 15 MCG/2 ML NEBU IH SCH (08:13)
[2020-08-02] MEDS: BUDESONIDE 0.5 MG/2 ML NEBU IH SCH (08:13)
[2020-08-02] MEDS: GABAPENTIN 300 MG CAP PO SCH (10:24)
[2020-08-02] MEDS: PANTOPRAZOLE 40 MG TAB PO SCH (10:24)
[2020-08-02] MEDS: METOPROLOL SUCCINATE XL 25 MG TAB PO SCH (10:25)
[2020-08-02] MEDS: CETIRIZINE 10 MG TAB PO SCH (10:25)
[2020-08-02] MEDS: FLUTICASONE PROPIONATE NASAL SPRAY 16 GM NS SCH (10:32)
[2020-08-02] MEDS: OXYBUTYNIN 5 MG TAB PO SCH (10:43)
[2020-08-02 12:51] VITALS: BP 146/82
[2020-08-03] MEDS ORDERED: levoFLOXacin 750 MG TAB PO SCH (10:00)
== END 2020-08-02 14:00 | disposition home health service (06) ==
LOC: ED 02:12 → 3A 05:05 → UNDODISOB 17:56 → OBSVTOIN 08-01 10:57 → INTOOBSV 08-01 10:57 → 4A 08-01 20:54
PROVIDERS: ADMIT Internal Medicine Geriatric Medicine; ATTEND Internal Medicine
DX: A41.9 Sepsis, unspecified organism (principal); Z20.828 Contact with and (suspected) exposure to other viral communicable diseases; J96.20 Acute and chronic respiratory failure, unspecified whether with hypoxia or hypercapnia; I11.0 Hypertensive heart disease with heart failure; I50.9 Heart failure, unspecified; I42.8 Other cardiomyopathies; D72.829 Elevated white blood cell count, unspecified; J44.1 Chronic obstructive pulmonary disease with (acute) exacerbation; N93.0 Postcoital and contact bleeding; N39.0 Urinary tract infection, site not specified; Z99.81 Dependence on supplemental oxygen; Z98.41 Cataract extraction status, right eye; Z98.42 Cataract extraction status, left eye; Z85.118 Personal history of other malignant neoplasm of bronchus and lung; Z87.891 Personal history of nicotine dependence; Z98.890 Other specified postprocedural states; Z79.899 Other long term (current) drug therapy
CPT/HCPCS: 36415; 71045; 71275; 80053; 81001; 82140; 82962; 84145; 84439; 84443; 85025; 85379; 85610; 87040; 87086; 93005; 94640; 94760; 96361; 96365; 96366; 96372; 96375; 96376; 99285; G0378; J1650; J1956; J2405; J2920; J7030; Q9967; U0003

== ENCOUNTER 2021-03-25 13:23 | Emergency (ER) | payer MEDICARE ==
[2021-03-25] MEDS ORDERED: IPRATROPIUM/ALBUTEROL SULFATE 3 ML AMPUL.NEB IH ONE (13:41)
--- NOTE | 2021-03-25 13:46 | Emergency Department Report ---
ED Shortness of Breath HPI - General Stated Complaint: ALLI Time Seen by Provider: 03/25/21 13:40 - History of Present Illness Initial Comments: Patient presents with shortness of breath by EMS. She has been diagnosed with pneumonia and coronavirus approximately 10 days ago. She was given steroids. She was not given monoclonal antibodies. Patient has been trying to ride this out at home. She has become more more short of breath with more more weakness. She is on 2 L by cannula oxygen at baseline. Patient has had to bump that up to 3. She was still hypoxic. EMS was called. EMS placed her on a nonrebreather. They did give Solu-Medrol. Patient does have a history of COPD and CHF. She does not believe that she is having a problem with COPD or CHF at this time. She states that this is all related to coronavirus in her opinion. - Related Data Home Medications Medication Instructions Recorded Confirmed Last Taken Albuterol Sulfate [Ventolin HFA] 1 puff IH Q4H PRN 03/17/18 07/31/20 Unknown Gabapentin 300 mg PO BID 03/17/18 07/31/20 2 Days Ago ~03/05/19 Oxybutynin [Ditropan] 5 mg PO BID 03/17/18 07/31/20 2 Days Ago ~03/05/19 Carafate 1 gm PO TID 03/07/19 07/31/20 2 Days Ago ~03/05/19 Flonase 50 mcg IH DAILY 03/07/19 07/31/20 2 Days Ago ~03/05/19 Loratadine 10 mg PO DAILY 03/07/19 07/31/20 2 Days Ago ~03/05/19 Omeprazole 40 mg PO DAILY 03/07/19 07/31/20 2 Days Ago ~03/05/19 Silenor 6 mg PO QHS 03/07/19 07/31/20 2 Days Ago ~03/05/19 oxyCODONE /ACETAMINOPHEN [Percocet 7.5 mg PO Q6HR PRN 03/07/19 07/31/20 2 Days Ago 5/325 mg] ~03/05/19 Previous Rx's Medication Instructions Recorded Last Taken Type Metoprolol Xl [Metoprolol 25 mg PO QDAY #30 tablet 03/09/19 Unknown Rx SUCCINATE ER TAB] methOCARBAMOL [Robaxin TAB] 500 mg PO QID #60 tablet 03/09/19 Unknown Rx Fluticasone/Salmeterol [Advair 250 mg IH DAILY #1 08/02/20 Unknown Rx Diskus 250-50 mcg] Ipratropium/Albuterol Sulfate 0.5 mg IH Q6H #60 08/02/20 Unknown Rx [DUONEB *Not for PRN Use*] Prednisone [predniSONE 10 mg 10 mg PO .TAPER #1 tab.ds.pk 08/02/20 Unknown Rx (6-Day Pack, 21 Tabs)] levoFLOXacin [Levaquin TAB] 750 mg PO QDAY #5 tablet 08/02/20 Unknown Rx Allergies Allergy/AdvReac Type Severity Reaction Status Date / Time erythromycin base Allergy Rash Verified 03/25/21 14:56 [Erythromycin Base] hydromorphone [From Dilaudid] Allergy Vomiting Verified 03/25/21 14:56 Penicillins Allergy Shortness Verified 03/25/21 14:56 of Breath ED Review of Systems ROS: Stated complaint: ALLI Other details as noted in HPI Comment: All other systems reviewed and negative Constitutional: fever (Subjective) Eyes: denies: eye pain ENT: denies: throat pain Respiratory: no symptoms reported, SOB at rest. denies: orthopnea Cardiovascular: denies: chest pain Endocrine: denies: unexplained weight loss Gastrointestinal: denies: abdominal pain Genitourinary: denies: dysuria Musculoskeletal: denies: back pain Skin: denies: rash Neurological: denies: headache Hematological/Lymphatic: denies: easy bruising ED Past Medical Hx - Past Medical History Hx Hypertension: Yes Hx Heart Attack/AMI: Yes Hx Congestive Heart Failure: Yes Hx Diabetes: No Hx Deep Vein Thrombosis: No Hx Pulmonary Embolism: No Hx GERD: No Hx Liver Disease: No Hx Renal Disease: No Hx Sickle Cell Disease: No Hx Arthritis: Yes Hx Headaches / Migraines: No Hx Seizures: No Hx Kidney Stones: No Hx Asthma: Yes Hx COPD: Yes Hx Tuberculosis: No Hx Dementia: No Hx HIV: No Additional medical history: angina. lung CA. chronic pain - Surgical History Hx Coronary Stent: No Hx Open Heart Surgery: No Hx Pacemaker: No Hx Internal Defibrillator: No Hx Cholecystectomy: No Hx Appendectomy: No Hx Breast Surgery: No Additional Surgical History: [place] cataract surgery. right lobectomy - Family History Family history: hypertension - Social History Smoking Status: Former Smoker - Medications Home Medications: Home Medications Medication Instructions Recorded Confirmed Last Taken Type Albuterol Sulfate [Ventolin HFA] 1 puff IH Q4H PRN 03/17/18 07/31/20 Unknown History Gabapentin 300 mg PO BID 03/17/18 07/31/20 2 Days Ago History ~03/05/19 Oxybutynin [Ditropan] 5 mg PO BID 03/17/18 07/31/20 2 Days Ago History ~03/05/19 Carafate 1 gm PO TID 03/07/19 07/31/20 2 Days Ago History ~03/05/19 Flonase 50 mcg IH DAILY 03/07/19 07/31/20 2 Days Ago History ~03/05/19 Loratadine 10 mg PO DAILY 03/07/19 07/31/20 2 Days Ago History ~03/05/19 Omeprazole 40 mg PO DAILY 03/07/19 07/31/20 2 Days Ago History ~03/05/19 Silenor 6 mg PO QHS 03/07/19 07/31/20 2 Days Ago History ~03/05/19 oxyCODONE /ACETAMINOPHEN [Percocet 7.5 mg PO Q6HR PRN 03/07/19 07/31/20 2 Days Ago History 5/325 mg] ~03/05/19 Metoprolol Xl [Metoprolol 25 mg PO QDAY #30 tablet 03/09/19 07/31/20 Unknown Rx SUCCINATE ER TAB] methOCARBAMOL [Robaxin TAB] 500 mg PO QID #60 tablet 03/09/19 07/31/20 Unknown Rx Fluticasone/Salmeterol [Advair 250 mg IH DAILY #1 08/02/20 Unknown Rx Diskus 250-50 mcg] Ipratropium/Albuterol Sulfate 0.5 mg IH Q6H #60 08/02/20 Unknown Rx [DUONEB *Not for PRN Use*] Prednisone [predniSONE 10 mg 10 mg PO .TAPER #1 tab.ds.pk 08/02/20 Unknown Rx (6-Day Pack, 21 Tabs)] levoFLOXacin [Levaquin TAB] 750 mg PO QDAY #5 tablet 08/02/20 Unknown Rx ED Physical Exam - General General appearance: alert, in distress (Moderate), other (Frail) - Head Head exam: Present: atraumatic, normocephalic, normal inspection - Eye Eye exam: Present: normal appearance, EOMI. Absent: scleral icterus - ENT ENT exam: Present: normal exam, normal orophraynx, mucous membranes moist - Neck Neck exam: Present: normal inspection. Absent: meningismus - Respiratory Respiratory exam: Present: respiratory distress (Moderate), wheezes (Left greater than right), prolonged expiratory - Cardiovascular Cardiovascular Exam: Present: regular rate, normal rhythm - GI/Abdominal GI/Abdominal exam: Present: soft. Absent: tenderness - Extremities Exam Extremities exam: Present: normal capillary refill. Absent: pedal edema - Back Exam Back exam: Absent: CVA tenderness (R), CVA tenderness (L) - Neurological Exam Neurological exam: Present: alert, oriented X3, CN II-XII intact. Absent: motor sensory deficit - Psychiatric Psychiatric exam: Present: normal affect, normal mood - Skin Skin exam: Present: warm, dry ED Course Vital Signs 03/25/21 03/25/21 03/25/21 13:42 14:00 14:30 Pulse Rate 93 H 89 Respiratory 34 H 31 H Rate Blood Pressure 155/79 134/73 136/61 O2 Sat by Pulse 95 97 100 Oximetry - Reevaluation(s) Reevaluation #1: 03/25/21 13:45 1335-EMS was met upon arrival. Oxygen was maintained. Reevaluation #2: 03/25/21 15:44 Patient was feeling better. She was still fatigued, but was not hypoxic. Her oxygen was weaned down to 2 L. She remained normoxic at 94%. At this time, I believe discharge is appropriate. She does not require admission. She does not have worsening pneumonia or respiratory failure. She does not appear to be septic or toxic. She was vaccinated. We would not do monoclonal antibodies as she has had symptoms for 7 days now. She is comfortable going home with outpatient management. We discussed albuterol and Atrovent use. ED Medical Decision Making - Lab Data Result diagrams: 03/25/21 14:22 03/25/21 14:22 Critical Care Time: No Critical care attestation.: If time is entered above; I have spent that time in minutes in the direct care of this critically ill patient, excluding procedure time. ED Disposition Clinical Impression: Shortness of breath, COVID-19 virus infection, Hypoxia Disposition: 01 HOME / SELF CARE / HOMELESS Is pt being admited?: No Does the pt Need Aspirin: No Condition: Stable Instructions: Shortness of Breath, Adult, Ekgp-[id number], COVID-19 Frequently Asked Questions Additional Instructions: Continue home medication. Use your nebulizer 4 times a day. Follow-up with your regular doctor. Rest and convalesce at home. Continue to quarantine.
--- NOTE | 2021-03-25 15:11 | XRay Report ---
CHEST 1 VIEW 03/25/2021 2:43 PM INDICATION / CLINICAL INFORMATION: hypoxia. COMPARISON: 07/31/2020 FINDINGS: SUPPORT DEVICES: None. HEART / MEDIASTINUM: Unchanged LUNGS / PLEURA: There are bilateral airspace opacities. There is mild venous congestion. There is a s mall right pleural effusion. No pneumothorax is seen. ADDITIONAL FINDINGS: No significant additional findings. IMPRESSION: 1. There bilateral patchy airspace opacities which could represent edema or pneumonia. There is a sma ll right pleural effusion. There is mild venous congestion. Signer Name: Andrew Pritchett MD Signed: 03/25/2021 3:06 PM Workstation Name: [id number]
[2021-03-25 15:14] LABS: Hematocrit 37.7 % (30.3-42.9); Hemoglobin 12.3 gm/dl (10.1-14.3); Mean Corpuscular HGB Conc 33 % (30-34); Mean Corpuscular Volume 94 fl (79-97); Platelet Count 179 K/mm3 (140-440); Red Blood Count 4.03 M/mm3 (3.65-5.03); Red Cell Distribution Width 15.2 % (13.2-15.2)
[2021-03-25 15:28] LABS: Blood Urea Nitrogen 14 mg/dL (7-17); Hemolysis Index 16
[2021-03-25 15:30] LABS: BUN/Creatinine Ratio 28
[2021-03-25 17:47] VITALS: BP 144/84
== END 2021-03-25 17:47 | disposition home or self-care (01) ==
LOC: ED 13:23
DX: U07.1 COVID-19 (principal); R06.02 Shortness of breath; R09.02 Hypoxemia; I11.0 Hypertensive heart disease with heart failure; M19.90 Unspecified osteoarthritis, unspecified site; J44.9 Chronic obstructive pulmonary disease, unspecified; G89.29 Other chronic pain; Z98.890 Other specified postprocedural states; Z87.891 Personal history of nicotine dependence; Z88.0 Allergy status to penicillin; Z88.1 Allergy status to other antibiotic agents; Z88.5 Allergy status to narcotic agent
CPT/HCPCS: 36415; 71045; 80048; 84484; 85027; 85379; 99284

== ENCOUNTER 2022-03-11 11:38 | Outpatient (CLI) | payer MEDICARE ==
--- NOTE | 2022-03-11 14:34 | Cat Scan Report ---
CT lumbar spine wo con INDICATION / CLINICAL INFORMATION: 71 years Female; M54.50 LOW BACK PAIN. TECHNIQUE: Axial CT images of the lumbar spine were obtained with sagittal and coronal reconstructions. All CT s cans at this location are performed using CT dose reduction for ALARA by means of automated exposure control. COMPARISON: None available. FINDINGS: POST-SURGICAL CHANGES: None. ALIGNMENT: There is no significant spondylolisthesis or scoliosis of the lumbar spine. VERTEBRAE: There is marked disc space narrowing with vacuum phenomenon and endplate cystic changes wi th sclerosis from L1 to to L5-S1. There is no clear CT evidence of recent compression fracture. INTERVERTEBRAL DISCS: The spondylosis at L5-S1 appears to mildly flatten the ventral thecal sac. Madi tionally, there is moderate foraminal narrowing, greater on the left. The spondylosis and facet joint hypertrophy at L4-5 appear to result in mild to moderate degree of sp inal stenosis. Additionally, there is moderate to right neural foraminal narrowing. The broad-based disc bulge at L3-4 mildly deforms the ventral thecal sac. There is also mild left girish ral foraminal narrowing. The spondylosis at L2-3 mildly deforms the thecal sac at. There is mild righ t foraminal narrowing. The posterior spondylosis at L1-2 mildly encroaches on the right lateral recess at. There is mild lef t neural foraminal narrowing. PARASPINAL SOFT TISSUES: No significant abnormality. ADDITIONAL FINDINGS: None. IMPRESSION: 1. There are multilevel advanced degenerative changes involving lumbar spine as detailed above. Signer Name: Dimas Ruvalcaba MD Signed: 03/11/2022 2:29 PM Workstation Name: [email or web address]
== END 2022-03-11 11:39 | disposition home or self-care (01) ==
LOC: CT 11:38
PROVIDERS: ATTEND Pain Medicine Interventional Pain Medicine
DX: M47.27 Other spondylosis with radiculopathy, lumbosacral region (principal); M48.07 Spinal stenosis, lumbosacral region
CPT/HCPCS: 72131